=== PATIENT | female | born 1945 | race Caucasian/White ===

== ENCOUNTER 2016-09-01 17:11 | Inpatient (IN) | payer MEDICARE ==
[2016-09-01] MEDS ORDERED: HYDROmorphone 1 MG/ML 1 ML SYRINGE IVP STA (17:48)
[2016-09-01] MEDS ORDERED: ONDANSETRON 4 MG/2 ML VIAL IVP STA (17:48)
[2016-09-01] MEDS ORDERED: PANTOPRAZOLE 40 MG/10 ML VIAL IVP STA (17:48)
[2016-09-01] MEDS ORDERED: RX INFO: IV CONTRAST WAS GIVEN 1 EACH MISC MISCELLANE PRN (17:48)
[2016-09-01] MEDS ORDERED: SODIUM CHLORIDE 0.9% 1,000 ML IV STA ×2 (17:48)
[2016-09-01] MEDS ORDERED: LEVOFLOXACIN 750MG-D5W PMX 750 MG in DEXTROSE/WATER 1 150ML.BAG IVPB STA (17:50)
--- NOTE | 2016-09-01 17:54 | ED ---
Abdominal Pain HPI - General Chief Complaint: Abdominal Pain Stated Complaint: POSS KIDNEY INFECTION, VOMITING Time Seen by Provider: 09/01/16 17:38 Source: patient Mode of arrival: wheelchair Limitations: no limitations - History of Present Illness Initial Comments: This 70-year-old white female presents with with the complaint of nausea vomiting and abdominal pain. She relates that the nausea and vomiting has been present intermittently for the last 2 weeks. It has been more severe over the last 2 days and she's been unable to keep down any food, fluid, or pills. She is felt significant chills but has not had any definitive fever. She was seen at [facility] urgent [facility] yesterday and diagnosed with urinary tract infection and pyelonephritis. She was put on an unknown antibiotic for which she attempted 2 doses but apparently vomited them up. She has had some frequency and urgency but no hematuria. She has had occasional flank pain. She denies any other complaints or modifying factors. Symptoms are fairly severe. She relates that she has lost 8 pounds in the past 2 weeks. - Related Data Home Medications Medication Instructions Recorded Confirmed Clopidogrel [Plavix] 75 mg PO DAILY 10/01/13 09/01/16 Insulin Glargine [Lantus] 40 unit SQ HS 10/01/13 09/01/16 Nitroglycerin Sl Tabs [Nitrostat] 0.4 mg SL DIRECTED PRN 10/01/13 09/01/16 Atorvastatin [Lipitor] 40 mg PO HS 09/01/16 09/01/16 Calcium Carbonate [Calcium] 600 mg PO DAILY 09/01/16 09/01/16 Cholecalciferol (Vitamin D3) 2,000 unit PO DAILY 09/01/16 09/01/16 [Vitamin D3] Ciprofloxacin HCl [Cipro] 500 mg PO Q12HR 09/01/16 09/01/16 Edoxaban Tosylate [Savaysa] 60 mg PO DAILY 09/01/16 09/01/16 Eluxadoline [Viberzi] 75 mg PO BID 09/01/16 09/01/16 Metoprolol Tartrate [Lopressor] 25 mg PO BID 09/01/16 09/01/16 Omeprazole [PriLOSEC] 40 mg PO DAILY 09/01/16 09/01/16 Ondansetron Odt [Zofran Odt] 4 mg PO Q8HR PRN 09/01/16 09/01/16 Propafenone [Rythmol] 150 mg PO TID 09/01/16 09/01/16 rOPINIRole HCL [Requip] 1 mg PO TID 09/01/16 09/01/16 Allergies Allergy/AdvReac Type Severity Reaction Status Date / Time ceftriaxone sodium Allergy HIVES Verified 09/01/16 19:17 [From Rocephin] Review of Systems ROS Statement: Those systems with pertinent positive or pertinent negative responses have been documented in the HPI. ROS Other: All systems not noted in ROS Statement are negative. Past Medical History Past Medical History: Cancer, Diabetes Mellitus, Hypertension, Skin Disorder Additional Past Medical History / Comment(s): HEART MURMUR, IBS, RECENT UTI, PSORIASIS, HX SHINGLES, NEUROPATHY, CERVICAL AND BREAST CANCER-NO CHEMO OR RAD. , PT STATES THAT SHE FELL ON 09/28/13 AND HAS NUMEROUS BRUISES History of Any Multi-Drug Resistant Organisms: None Reported Past Surgical History: Adenoidectomy, Breast Surgery, Cholecystectomy, Heart Catheterization With Stent, Hysterectomy, Orthopedic Surgery, Tonsillectomy Additional Past Surgical History / Comment(s): BILAT BREAST BIOPSY, LT PARTIAL MASTECTOMY-1976, LT KNEE SCOPE, REPAIR LT ROTATOR CUFF, LT CTR, BILAT CATARACT REMOVAL, COLONOSCOPY, EGD Past Anesthesia/Blood Transfusion Reactions: Previous Problems w/ Anesthesia, Motion Sickness, Postoperative Nausea & Vomiting (PONV) Date of Last Stent Placement:: 2011 Past Psychological History: Anxiety Smoking Status: Former smoker - Past Family History Father Family Medical History: Cancer Mother Family Medical History: Cancer Brother(s) Family Medical History: Cancer Sister(s) Family Medical History: Cancer General Exam - General Exam Comments Initial Comments: GENERAL: The patient is well nourished and well hydrated. VITAL SIGNS: Heart rate, blood pressure, respiratory rate reviewed as recorded in nurse's notes. EYES: Pupils are round and reactive. Extraocular movements are intact. No conjunctival / lid redness or swelling. ENT: No external evidence of injury, swelling, or ecchymosis. Airway is patent. Throat is clear. NECK: Nontender. No swelling or evidence of injury. No subcutaneous emphysema. Trachea is midline. No thyroid mass. HEART: Regular rate and rhythm. Good peripheral pulses. LUNGS/CHEST: Breath sounds clear and equal bilaterally. No rales, rhonchi, or wheezes. No ecchymosis, subcutaneous emphysema, or tenderness. ABDOMEN: There is mild diffuse tenderness worse in the left lower quadrant. There is mild flank tenderness bilaterally. No palpable masses or organomegaly. No peritoneal signs. No abdominal wall swelling or ecchymosis. EXTREMITIES: No extremity tenderness. Normal muscle tone and function. No thoracolumbar tenderness. NEUROLOGIC: Sensation is grossly intact. Cranial nerve exam reveals face is symmetrical, tongue is midline, speech is clear. SKIN: No abrasions or ecchymosis is noted. No induration or masses noted. PSYCHIATRIC: Alert and oriented. Appropriate behavior and judgment. Limitations: no limitations Course Vital Signs 09/01/16 09/01/16 17:25 19:13 Temperature 98.3 F 98.3 F Pulse Rate 77 72 Respiratory 18 18 Rate Blood Pressure 170/70 170/73 O2 Sat by Pulse 99 95 Oximetry Medical Decision Making - Medical Decision Making The patient was seen and examined. She is thoroughly hydrated. She received Zofran and Dilaudid intravenously. She is feeling improved on recheck. The laboratory did show elevation of the white blood cell count consistent with infection. The urine does show evidence of urinary infection. The computed tomography scan of the abdomen and pelvis shows an abnormal area primarily in the left lower quadrant potentially consistent with either an abscess versus mass. It is difficult for the radiologist to determine exactly where this is coming from. Overall, it is felt as though either of these possibilities are plausible. She will be treated for infection with antibiotics. Case is discussed with internal medicine and they would like OB and surgery to consult. She is in no distress on recheck. She is medically hospital for further treatment. - Lab Data Result diagrams: 09/01/16 18:03 09/01/16 18:03 Lab Results 09/01/16 09/01/16 09/01/16 Range/Units 18:03 18:03 18:03 WBC 13.5 H (3.8-10.6) k/uL RBC 4.01 (3.80-5.40) m/uL Hgb 12.0 (11.4-16.0) gm/dL Hct 36.6 (34.0-46.0) % MCV 91.2 (80.0-100.0) fL MCH 29.8 (25.0-35.0) pg MCHC 32.7 (31.0-37.0) g/dL RDW 12.7 (11.5-15.5) % Plt Count 336 (150-450) k/uL Neutrophils % 83 % Lymphocytes % 8 % Monocytes % 6 % Eosinophils % 1 % Basophils % 0 % Neutrophils # 11.1 H (1.3-7.7) k/uL Lymphocytes # 1.0 (1.0-4.8) k/uL Monocytes # 0.9 (0-1.0) k/uL Eosinophils # 0.1 (0-0.7) k/uL Basophils # 0.0 (0-0.2) k/uL PT (9.0-12.0) sec INR (<1.1) APTT (22.0-30.0) sec Sodium 135 L (137-145) mmol/L Potassium 3.9 (3.5-5.1) mmol/L Chloride 92 L (98-107) mmol/L Carbon Dioxide 22 (22-30) mmol/L Anion Gap 21 mmol/L BUN 24 H (7-17) mg/dL Creatinine 1.00 (0.52-1.04) mg/dL Est GFR (MDRD) Af Amer >60 (>60 ml/min/1.73 sqM) Est GFR (MDRD) Non-Af 55 (>60 ml/min/1.73 sqM) Glucose 343 H (74-99) mg/dL Plasma Lactic Acid Mitch 1.9 (0.7-2.0) mmol/L Calcium 9.4 (8.4-10.2) mg/dL Total Bilirubin 0.6 (0.2-1.3) mg/dL AST 19 (14-36) U/L ALT 27 (9-52) U/L Alkaline Phosphatase 110 (38-126) U/L Total Protein 6.8 (6.3-8.2) g/dL Albumin 3.1 L (3.5-5.0) g/dL Amylase 59 (30-110) U/L Lipase 279 (23-300) U/L Urine Color Urine Appearance (Clear) Urine pH (5.0-8.0) Ur Specific Brohard (1.001-1.035) Urine Protein (Negative) Urine Glucose (UA) (Negative) Urine Ketones (Negative) Urine Blood (Negative) Urine Nitrite (Negative) Urine Bilirubin (Negative) Urine Urobilinogen (<2.0) mg/dL Ur Leukocyte Esterase (Negative) Urine RBC (0-5) /hpf Urine WBC (0-5) /hpf Ur Squamous Epith Cells (0-4) /hpf Urine Bacteria (None) /hpf 09/01/16 09/01/16 Range/Units 18:03 19:27 WBC (3.8-10.6) k/uL RBC (3.80-5.40) m/uL Hgb (11.4-16.0) gm/dL Hct (34.0-46.0) % MCV (80.0-100.0) fL MCH (25.0-35.0) pg MCHC (31.0-37.0) g/dL RDW (11.5-15.5) % Plt Count (150-450) k/uL Neutrophils % % Lymphocytes % % Monocytes % % Eosinophils % % Basophils % % Neutrophils # (1.3-7.7) k/uL Lymphocytes # (1.0-4.8) k/uL Monocytes # (0-1.0) k/uL Eosinophils # (0-0.7) k/uL Basophils # (0-0.2) k/uL PT 11.3 (9.0-12.0) sec INR 1.1 (<1.1) APTT 22.2 (22.0-30.0) sec Sodium (137-145) mmol/L Potassium (3.5-5.1) mmol/L Chloride (98-107) mmol/L Carbon Dioxide (22-30) mmol/L Anion Gap mmol/L BUN (7-17) mg/dL Creatinine (0.52-1.04) mg/dL Est GFR (MDRD) Af Amer (>60 ml/min/1.73 sqM) Est GFR (MDRD) Non-Af (>60 ml/min/1.73 sqM) Glucose (74-99) mg/dL Plasma Lactic Acid Mitch (0.7-2.0) mmol/L Calcium (8.4-10.2) mg/dL Total Bilirubin (0.2-1.3) mg/dL AST (14-36) U/L ALT (9-52) U/L Alkaline Phosphatase (38-126) U/L Total Protein (6.3-8.2) g/dL Albumin (3.5-5.0) g/dL Amylase (30-110) U/L Lipase (23-300) U/L Urine Color Yellow Urine Appearance Cloudy H (Clear) Urine pH 5.5 (5.0-8.0) Ur Specific Brohard 1.035 (1.001-1.035) Urine Protein 2+ H (Negative) Urine Glucose (UA) 4+ H (Negative) Urine Ketones 3+ H (Negative) Urine Blood Small H (Negative) Urine Nitrite Positive H (Negative) Urine Bilirubin Negative (Negative) Urine Urobilinogen <2.0 (<2.0) mg/dL Ur Leukocyte Esterase Small H (Negative) Urine RBC 34 H (0-5) /hpf Urine WBC 24 H (0-5) /hpf Ur Squamous Epith Cells 1 (0-4) /hpf Urine Bacteria Many H (None) /hpf Disposition Clinical Impression: Abdominal pain, Nausea and vomiting, Failure of outpatient treatment, Urinary tract infection, Leukocytosis, Dehydration, Abdominal abscess Disposition: ADMITTED IP TO THIS HOSP Condition: Fair Referrals: Perico White MD [Primary Care Provider] - 1-2 days Time of Disposition: 20:47
[2016-09-01 18:15] LABS: Basophils % (A) 0 %; CH 29.3; CHCM 32.2; Eosinophils # (A) 0.1 k/uL (0-0.7); Eosinophils % (A) 1 %; HCT 36.6 % (34.0-46.0); HDW 2.55; Luc # (Auto) 0.36; Luc % (Auto) 3; Lymphocytes % (A) 8 %; MCH 29.8 pg (25.0-35.0); MCHC 32.7 g/dL (31.0-37.0); MCV 91.2 fL (80.0-100.0); Mean Platelet Volume 8.6; Monocytes # (A) 0.9 k/uL (0-1.0); Monocytes % (A) 6 %; Neutrophils # (A) 11.1 k/uL (1.3-7.7); Neutrophils % (A) 83 %; RBC 4.01 m/uL (3.80-5.40); RDW 12.7 % (11.5-15.5); WBC 13.5 k/uL (3.8-10.6); WBC (Perox) 13.74
[2016-09-01 18:26] LABS: INR 1.1 (<1.1); Partial Thromboplastin Time 22.2 sec (22.0-30.0); Prothrombin Time 11.3 sec (9.0-12.0)
[2016-09-01 18:29] LABS: ALT 27 U/L (9-52); AST 19 U/L (14-36); Alkaline Phosphatase 110 U/L (38-126); Amylase 59 U/L (30-110); Anion Gap 21 mmol/L; Blood Urea Nitrogen 24 mg/dL (7-17); Calcium 9.4 mg/dL (8.4-10.2); Carbon Dioxide 22 mmol/L (22-30); Chloride 92 mmol/L (98-107); Glucose 343 mg/dL (74-99); Non-African American GFR(MDRD) 55 (>60 ml/min/1.73 sqM); Potassium 3.9 mmol/L (3.5-5.1); Sodium 135 mmol/L (137-145); Total Bilirubin 0.6 mg/dL (0.2-1.3); Total Protein 6.8 g/dL (6.3-8.2)
[2016-09-01 19:40] LABS: Appearance,Urine Cloudy (Clear); Bacteria,Urine Many /hpf; Bilirubin,Urine Negative (Negative); Glucose,Urine (UA) 4+ (Negative); Leukocyte Esterase,Urine Small (Negative); Nitrite,Urine Positive (Negative); PH, Urine 5.5 (5.0-8.0); Particle Count 9580; Protein,Urine 2+ (Negative); RBC,Urine 34 /hpf (0-5); Specific Gravity,Urine 1.035 (1.001-1.035); Squamous Epithelial Cell,Urine 1 /hpf (0-4); UA Billing (MACRO vs. MICRO) MICRO; Urobilinogen,Urine <2.0 mg/dL (<2.0); WBC,Urine 24 /hpf (0-5)
--- NOTE | 2016-09-01 19:43 | CT ---
EXAMINATION TYPE: CT abdomen pelvis w con DATE OF EXAM: 09/01/2016 COMPARISON: Prior CT abdomen pelvis 09/09/2013 HISTORY: Nausea, vomiting and lower abdominal pain x 2-[address] DLP: 1523.00 mGycm Automated exposure control for dose reduction was used. TECHNIQUE: Helical acquisition of images from the lung bases through the pelvis have been completed. CONTRAST: Performed without Oral Contrast and with IV Contrast, patient injected with 80 mL of Visipaque 320. FINDINGS: Leads are present within the heart LUNG BASES: No significant abnormality is appreciated. AORTA: No significant abnormality is appreciated. LIVER/GB: The common bile duct is markedly dilated 2.2 cm, there is some intrahepatic ductal dilatati on, gallbladder is absent. Liver normal as seen. Findings are stable PANCREAS: , Common bile duct shows a more normal caliber. SPLEEN: No significant abnormality is seen. ADRENALS: Left adrenal low-density nodule measures approximately 16 mm. Right adrenal gland is normal . KIDNEYS: No significant abnormality is seen. REPRODUCTIVE ORGANS: Uterus and adnexal structures are not seen. There is a fluid collection seen in the left iliac fossa which is irregular and there are associated surgical clips, some mixed density i s present, iliac vasculature runs through this level, overall the area measures approximately 8.5 cm in AP dimension by 5.4 cm in transverse dimension by 12 cm in craniocaudal dimension. The rectus musc les shows some thickening anteriorly to this level of surgery and abnormal density in the left hemipe lvis BOWEL: No significant abnormality is seen. FREE AIR: No Free Air visible. ASCITES: No definite ascites PELVIC ADENOPATHY: Findings as described in the pelvis RETROPERITONEAL ADENOPATHY: No Retroperitoneal Adenopathy visible. URINARY BLADDER: No significant abnormality is seen. OSSEOUS STRUCTURES: No significant abnormality is seen. IMPRESSION: INTERVAL DEVELOPMENT OF ABNORMAL DENSITY IN THE LEFT HEMIPELVIS, CORRELATE WITH APPROPRIATE SURGICAL HISTORY, PRIOR INTERVENTION. DIFFICULT TO EXCLUDE OVARIAN MASS, CORRELATE FOR POSSIBLE INFECTION. A D EFINED ABSCESS IS NOT IDENTIFIED WITH CERTAINTY HOWEVER. BILIARY DILATION IS A STABLE FINDING, LEFT A DRENAL PROBABLE ADENOMA NOT SIGNIFICANTLY CHANGED.
[2016-09-01 19:51] LABS: Ketones,Urine 3+ (Negative)
[2016-09-01] MEDS ORDERED: metroNIDAZOLE-NS PMX 500 MG in SALINE 1 100ML.BAG IVPB STA (20:48)
[2016-09-01] MEDS ORDERED: ACETAMINOPHEN TAB 325 MG TAB PO PRN (20:48)
[2016-09-01] MEDS ORDERED: NALOXONE 0.4 MG/ML 1 ML VIAL IV PRN (20:48)
[2016-09-01] MEDS: HYDROmorphone 1 MG/ML 1 ML SYRINGE IV PRN (22:00)
[2016-09-01 22:05] LABS: Glucose,Whole Blood 280 mg/dL (75-99)
[2016-09-01] MEDS: ATORVASTATIN 40 MG TAB PO SCH (22:09)
[2016-09-01] MEDS: PROPAFENONE 150 MG TAB PO SCH (22:09)
[2016-09-01] MEDS: INSULIN LISPRO (humaLOG) 300 UNIT/3 ML VIAL SQ SCH (22:09)
[2016-09-01] MEDS: METOPROLOL TARTRATE 25 MG TAB PO SCH (22:09)
[2016-09-01] MEDS: ONDANSETRON 4 MG/2 ML VIAL IVP PRN (23:40)
[2016-09-02 03:01] LABS: Glucose,Whole Blood 255 mg/dL (75-99)
[2016-09-02] MEDS: INSULIN LISPRO (humaLOG) 300 UNIT/3 ML VIAL SQ SCH ×5 (03:06→21:22)
[2016-09-02] MEDS: HYDROmorphone 1 MG/ML 1 ML SYRINGE IV PRN ×5 (07:03→16:58)
[2016-09-02] MEDS: METOPROLOL TARTRATE 25 MG TAB PO SCH ×2 (07:59→21:21)
[2016-09-02] MEDS ORDERED: PANTOPRAZOLE 40 MG/10 ML VIAL IV SCH (09:00)
[2016-09-02 09:18] LABS: Glucose,Whole Blood 263 mg/dL (75-99)
--- NOTE | 2016-09-02 09:36 | US ---
EXAMINATION TYPE: US pelvis complete transvag DATE OF EXAM: 09/02/2016 COMPARISON: CT 09/01/2016, 09/09/2013 CLINICAL HISTORY: Abdominal pain, abnormal CT, left adnexal mass. Pt in ER for vomiting, CT showed le ft adnexal mass TECHNIQUE: Transvaginal (TV) and Transabdominal (TA) endovaginal scanning performed for better evalu ation of the adnexa, left ovary Date of LMP: Hysterectomy when patient was 27 EXAM MEASUREMENTS: Uterus: Surgically absent Endometrial Stripe: Surgically absent cm Right Ovary: not visualized Left Ovary: not visualized with certainty Grayscale, color Doppler, spectral Doppler imaging performed of the left adnexa 1. Uterus: Surgically absent 2. Endometrium: Surgically absent 3. Right Ovary: not identified 4. Left adnexal lesion, somewhat irregular in shape, there is some vascularity to mass only in perip chandni, measures 5.6 x 2.9 x 3.5cm. Unable to visualize with TV. 5. Posterior cul-de-sac: wnl IMPRESSION: Hypoechoic left adnexal abnormality likely corresponds to a portion of the CT finding, co nsider [employer] and surgical consult
[2016-09-02 10:47] LABS: Basophils % (A) 0 %; CH 29.1; CHCM 30.5; Eosinophils % (A) 0 %; HCT 33.5 % (34.0-46.0); HDW 2.38; Hypochromasia Slight; Luc # (Auto) 0.29; Luc % (Auto) 3; Lymphocytes # (A) 0.8 k/uL (1.0-4.8); Lymphocytes % (A) 7 %; MCH 28.6 pg (25.0-35.0); MCHC 29.9 g/dL (31.0-37.0); MCV 95.7 fL (80.0-100.0); Mean Platelet Volume 8.9; Monocytes # (A) 0.6 k/uL (0-1.0); Monocytes % (A) 6 %; Neutrophils # (A) 9.2 k/uL (1.3-7.7); Neutrophils % (A) 84 %; RDW 13.5 % (11.5-15.5); WBC 10.9 k/uL (3.8-10.6); WBC (Perox) 11.06
[2016-09-02 11:04] LABS: Anion Gap 15 mmol/L; Blood Urea Nitrogen 20 mg/dL (7-17); Calcium 8.7 mg/dL (8.4-10.2); Carbon Dioxide 24 mmol/L (22-30); Chloride 98 mmol/L (98-107); Glucose 267 mg/dL (74-99); Non-African American GFR(MDRD) 55 (>60 ml/min/1.73 sqM); Potassium 3.4 mmol/L (3.5-5.1); Sodium 137 mmol/L (137-145)
[2016-09-02 11:13] VITALS: BMI 31.3
[2016-09-02] MEDS: CLOPIDOGREL 75 MG TAB PO SCH (12:17)
[2016-09-02] MEDS: EDOXABAN TOSYLATE 60 MG TABLET PO SCH (12:17)
[2016-09-02] MEDS: CALCIUM CARBONATE 500 MG CHEWABLE PO SCH ×2 (12:18→12:21)
[2016-09-02] MEDS: PROPAFENONE 150 MG TAB PO SCH ×3 (12:18→21:22)
[2016-09-02] MEDS: CHOLECALCIFEROL 1,000 UNIT TAB PO SCH (12:18)
--- NOTE | 2016-09-02 14:40 | P.GSCN ---
History of Present Illness Consult date: 09/02/16 Reason for Consult: Abdominal pain History of present illness: 70-year-old female being seen for a surgical eval at the request of the attending in a patient who presented with abdominal pain and an abnormal CAT scan showing a left adnexal mass. Patient gives a history of being in [place] last winter treated for an umbilical hernia which the patient stated she had undergone umbilical hernia repair the day after the procedure developed chest pain had a heart attack with coronary stents placed. When questioning patient patient stating that she has had chronic pain in her abdomen for "several years". Patient's currently being seen with Dr. Woodward at the bedside. Patient reports having lower abdominal pain.. Patient stated that she did present to the emergency room on September 01 with a chief complaint of nausea vomiting and abdominal pain. Patient states the nausea and vomiting had been intermittent and ongoing for the last several weeks. Patient stated she noted having increased pain over the last several days could not keep any fluids down . Patient stated she felt feverish chilled but did not take her temperature. Patient stated that she had been seen at [facility] urgent care on August 31. Patient stated she was told at the urgent care she had a urinary tract infection with pyelonephritis. According to the patient she was given a prescription for an antibiotic is not certain of the name did take 2 doses but could not keep them down "they seemed to make things worse I vomited them back up. Patient states she continues to have a frequency and urgency sensation. There's been no blood noted in the urine. Patient states her symptoms continue to persist over the last several weeks patient stated that she's lost about 8 pounds the Patient points to the lower abdominal wall as to the reference point is to wear the abdominal discomfort is the urinalysis on admission suggesting a UTI In the emergency room the patient did undergo a CAT scan of the abdomen and pelvis with contrast showed no free air no definitive ascites no significant abnormality noted in the bowel difficult interval development of abnormal density in the left hemipelvis correlate with appropriate surgical history prior intervention difficult to exclude an ovarian mass correlate for possible infection left adrenal probable adenoma not significantly changed Review of Systems Essentially unremarkable except as mentioned in the present illness Past Medical History Past Medical History: Cancer, Diabetes Mellitus, Hypertension, Myocardial Infarction ([place]), Skin Disorder Additional Past Medical History / Comment(s): HEART MURMUR, IBS, RECENT UTI, PSORIASIS, HX SHINGLES, NEUROPATHY, CERVICAL AND BREAST CANCER-NO CHEMO OR RAD. , PT STATES THAT SHE FELL ON 09/28/13 AND HAS NUMEROUS BRUISES Last Myocardial Infarction Date:: 2016 History of Any Multi-Drug Resistant Organisms: None Reported Past Surgical History: Adenoidectomy, Breast Surgery, Cholecystectomy, Heart Catheterization With Stent, Hysterectomy, Orthopedic Surgery, Pacemaker, Tonsillectomy Additional Past Surgical History / Comment(s): BILAT BREAST BIOPSY, LT PARTIAL MASTECTOMY-1976, LT KNEE SCOPE, REPAIR LT ROTATOR CUFF, LT CTR, BILAT CATARACT REMOVAL, COLONOSCOPY, EGD Past Anesthesia/Blood Transfusion Reactions: Previous Problems w/ Anesthesia, Motion Sickness, Postoperative Nausea & Vomiting (PONV) Date of Last Stent Placement:: 2011 Type of Cardiac Device: Permanent Pacemaker Device Placement Date:: 05/19/16 Past Psychological History: Anxiety Smoking Status: Former smoker - Past Family History Father Family Medical History: Cancer Mother Family Medical History: Cancer Brother(s) Family Medical History: Cancer Sister(s) Family Medical History: Cancer Medications and Allergies Home Medications Medication Instructions Recorded Confirmed Type Clopidogrel [Plavix] 75 mg PO DAILY 10/01/13 09/01/16 History Insulin Glargine [Lantus] 40 unit SQ HS 10/01/13 09/01/16 History Nitroglycerin Sl Tabs [Nitrostat] 0.4 mg SL DIRECTED PRN 10/01/13 09/01/16 History Atorvastatin [Lipitor] 40 mg PO HS 09/01/16 09/01/16 History Calcium Carbonate [Calcium] 600 mg PO DAILY 09/01/16 09/01/16 History Cholecalciferol (Vitamin D3) 2,000 unit PO DAILY 09/01/16 09/01/16 History [Vitamin D3] Ciprofloxacin HCl [Cipro] 500 mg PO Q12HR 09/01/16 09/01/16 History Edoxaban Tosylate [Savaysa] 60 mg PO DAILY 09/01/16 09/01/16 History Eluxadoline [Viberzi] 75 mg PO BID 09/01/16 09/01/16 History Metoprolol Tartrate [Lopressor] 25 mg PO BID 09/01/16 09/01/16 History Omeprazole [PriLOSEC] 40 mg PO DAILY 09/01/16 09/01/16 History Ondansetron Odt [Zofran Odt] 4 mg PO Q8HR PRN 09/01/16 09/01/16 History Propafenone [Rythmol] 150 mg PO TID 09/01/16 09/01/16 History rOPINIRole HCL [Requip] 1 mg PO TID 09/01/16 09/01/16 History Allergies Allergy/AdvReac Type Severity Reaction Status Date / Time ceftriaxone sodium Allergy HIVES Verified 09/01/16 19:17 [From Rocephin] Surgical - Exam Vital Signs Temp Pulse Resp BP Pulse Ox 98.3 F 77 18 170/70 99 09/01/16 17:25 09/01/16 17:25 09/01/16 17:25 09/01/16 17:25 09/01/16 17:25 GENERAL APPEARANCE: 70-year-old female patient is alert, oriented, in no acute distress. Resting in bed cirrhosis at bedside VITAL SIGNS: Reviewed HEENT: Head is normocephalic and atraumatic. Pupils are equal and reactive. The nares are patent. Oropharynx is clear without lesions. NECK: Supple without lymphadenopathy. Traches midline. HEART: S1, S2. Regular rate and rhythm. No murmur noted denying chest pain when questioning LUNGS: No crackles or wheezes are heard. Adequate air entry bilaterally no conversational dyspnea noted no cough ABDOMEN: Soft, slight tenderness lower abdominal wall nondistended with good bowel sounds. No peritoneal signs. No palpable organomegaly or masses. No surgical scars noted no guarding no facial grimacing with palpitation to the abdominal wall currently is none denying any burning on urination when questioning denies any frequent stooling EXTREMITIES: Normal skin color and turgor. No cyanosis, rash, ulceration, clubbing or edema. Radial pedal pulses are 2/4 bilaterally. NEUROLOGICAL: No focal deficits. Strength and sensation are grossly intact. Results - Labs 09/02/16 10:10 09/02/16 10:10 Abnormal Lab Results - Last 24 Hours (Table) 09/01/16 09/01/16 09/01/16 Range/Units 18:03 18:03 18:03 WBC 13.5 H (3.8-10.6) k/uL RBC (3.80-5.40) m/uL Hgb (11.4-16.0) gm/dL Hct (34.0-46.0) % MCHC (31.0-37.0) g/dL Neutrophils # 11.1 H (1.3-7.7) k/uL Lymphocytes # (1.0-4.8) k/uL Sodium 135 L (137-145) mmol/L Potassium (3.5-5.1) mmol/L Chloride 92 L (98-107) mmol/L BUN 24 H (7-17) mg/dL Glucose 343 H (74-99) mg/dL POC Glucose (mg/dL) (75-99) mg/dL Hemoglobin A1c 11.0 H (4.2-6.1) % Albumin 3.1 L (3.5-5.0) g/dL Urine Appearance (Clear) Urine Protein (Negative) Urine Glucose (UA) (Negative) Urine Ketones (Negative) Urine Blood (Negative) Urine Nitrite (Negative) Ur Leukocyte Esterase (Negative) Urine RBC (0-5) /hpf Urine WBC (0-5) /hpf Urine Bacteria (None) /hpf 09/01/16 09/01/16 09/02/16 Range/Units 19:27 22:03 02:59 WBC (3.8-10.6) k/uL RBC (3.80-5.40) m/uL Hgb (11.4-16.0) gm/dL Hct (34.0-46.0) % MCHC (31.0-37.0) g/dL Neutrophils # (1.3-7.7) k/uL Lymphocytes # (1.0-4.8) k/uL Sodium (137-145) mmol/L Potassium (3.5-5.1) mmol/L Chloride (98-107) mmol/L BUN (7-17) mg/dL Glucose (74-99) mg/dL POC Glucose (mg/dL) 280 H 255 H (75-99) mg/dL Hemoglobin A1c (4.2-6.1) % Albumin (3.5-5.0) g/dL Urine Appearance Cloudy H (Clear) Urine Protein 2+ H (Negative) Urine Glucose (UA) 4+ H (Negative) Urine Ketones 3+ H (Negative) Urine Blood Small H (Negative) Urine Nitrite Positive H (Negative) Ur Leukocyte Esterase Small H (Negative) Urine RBC 34 H (0-5) /hpf Urine WBC 24 H (0-5) /hpf Urine Bacteria Many H (None) /hpf 09/02/16 09/02/16 09/02/16 Range/Units 09:17 10:10 10:10 WBC 10.9 H (3.8-10.6) k/uL RBC 3.50 L (3.80-5.40) m/uL Hgb 10.0 L D (11.4-16.0) gm/dL Hct 33.5 L (34.0-46.0) % MCHC 29.9 L (31.0-37.0) g/dL Neutrophils # 9.2 H (1.3-7.7) k/uL Lymphocytes # 0.8 L (1.0-4.8) k/uL Sodium (137-145) mmol/L Potassium 3.4 L (3.5-5.1) mmol/L Chloride (98-107) mmol/L BUN 20 H (7-17) mg/dL Glucose 267 H (74-99) mg/dL POC Glucose (mg/dL) 263 H (75-99) mg/dL Hemoglobin A1c (4.2-6.1) % Albumin (3.5-5.0) g/dL Urine Appearance (Clear) Urine Protein (Negative) Urine Glucose (UA) (Negative) Urine Ketones (Negative) Urine Blood (Negative) Urine Nitrite (Negative) Ur Leukocyte Esterase (Negative) Urine RBC (0-5) /hpf Urine WBC (0-5) /hpf Urine Bacteria (None) /hpf Microbiology - Last 24 Hours (Table) 09/01/16 19:27 Urine Culture - Preliminary Urine,Voided Diabetes panel 09/01/16 09/01/16 09/02/16 Range/Units 18:03 18:03 10:10 Sodium 135 L 137 (137-145) mmol/L Potassium 3.9 3.4 L (3.5-5.1) mmol/L Chloride 92 L 98 (98-107) mmol/L Carbon Dioxide 22 24 (22-30) mmol/L BUN 24 H 20 H (7-17) mg/dL Creatinine 1.00 1.00 (0.52-1.04) mg/dL Glucose 343 H 267 H (74-99) mg/dL Hemoglobin A1c 11.0 H (4.2-6.1) % Calcium 9.4 8.7 (8.4-10.2) mg/dL AST 19 (14-36) U/L ALT 27 (9-52) U/L Alkaline Phosphatase 110 (38-126) U/L Total Protein 6.8 (6.3-8.2) g/dL Albumin 3.1 L (3.5-5.0) g/dL Calcium panel 09/01/16 09/02/16 Range/Units 18:03 10:10 Calcium 9.4 8.7 (8.4-10.2) mg/dL Albumin 3.1 L (3.5-5.0) g/dL Pituitary panel 09/01/16 09/02/16 Range/Units 18:03 10:10 Sodium 135 L 137 (137-145) mmol/L Potassium 3.9 3.4 L (3.5-5.1) mmol/L Chloride 92 L 98 (98-107) mmol/L Carbon Dioxide 22 24 (22-30) mmol/L BUN 24 H 20 H (7-17) mg/dL Creatinine 1.00 1.00 (0.52-1.04) mg/dL Glucose 343 H 267 H (74-99) mg/dL Calcium 9.4 8.7 (8.4-10.2) mg/dL Adrenal panel 09/01/16 09/02/16 Range/Units 18:03 10:10 Sodium 135 L 137 (137-145) mmol/L Potassium 3.9 3.4 L (3.5-5.1) mmol/L Chloride 92 L 98 (98-107) mmol/L Carbon Dioxide 22 24 (22-30) mmol/L BUN 24 H 20 H (7-17) mg/dL Creatinine 1.00 1.00 (0.52-1.04) mg/dL Glucose 343 H 267 H (74-99) mg/dL Calcium 9.4 8.7 (8.4-10.2) mg/dL Total Bilirubin 0.6 (0.2-1.3) mg/dL AST 19 (14-36) U/L ALT 27 (9-52) U/L Alkaline Phosphatase 110 (38-126) U/L Total Protein 6.8 (6.3-8.2) g/dL Albumin 3.1 L (3.5-5.0) g/dL Assessment and Plan Plan: Impression Present on admission abdominal pain unclear etiology History of known coronary artery disease with prior coronary stenting recent 2016 in [place] History of an AL within the last 12 months History of recent umbilical hernia repair A recent treatment within the week of a urinary tract infection on antibiotic failed outpatient treatment Type 2 diabetes insulin requiring Hypertension History of irritable bowel disease CAT scan abdomen and pelvis ovarian mass not ruled out Plan No evidence of acute surgical abdomen at this time 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 Scarlet Kimble nurse practitioner acting as a scribe for Dr. Woodward
[2016-09-02] MEDS: ONDANSETRON 4 MG/2 ML VIAL IVP PRN ×2 (15:09→21:27)
[2016-09-02 15:42] LABS: Glucose,Whole Blood 301 mg/dL (75-99)
[2016-09-02 17:09] LABS: Glucose,Whole Blood 282 mg/dL (75-99)
--- NOTE | 2016-09-02 18:28 | P.OBCN ---
History of Present Illness Consult date: 09/02/16 Requesting physician: Barney Pacheco Reason for consult: pelvic pain, other (Left adnexal mass) Chief complaint: Abdominal pain, nausea and vomiting History of present illness: This is a 70-year-old female 1 para 1 who presents with approximately 2 week history of nausea and vomiting that worsened to the point of not eating able to hold anything down. She also has been complaining of bilateral lower quadrant abdominal pain over the last 2 weeks that has worsened from her baseline and is worse on the left side. She states she has had lower abdominal pain for many years now but it did worsen over the last couple weeks with her vomiting. She was seen at another facility and was told that she had a urinary tract infection and given antibiotics. She was unable to hold the antibiotic down and therefore presented to the emergency room here. She does have a history of a hysterectomy at age 27 for cervical cancer and she did have a recent Pap smear approximately 1 year ago through her family doctor that was normal. She did have a CAT scan performed in the emergency room that showed uterus and adnexal structures are not seen, but there is a fluid collection seen in the left iliac fossa which is irregular and associated surgical clips are noted with a mixed density present the iliac vasculature does run through this level and the overall measurements are 8.5 x 5.4 x 12 cm. The rectus muscle also showed some thickening anteriorly to this level. There was no definite ascites. No retroperitoneal adenopathy was visible. The overall impression of the radiologist was interval development of abnormal density in the left hemipelvis, correlate with appropriate surgical history, prior intervention. Difficult to exclude ovarian mass, correlate for possible infection. A defined abscess is not identified with certainty however. She did undergo a pelvic ultrasound on the same day that showed a left adnexal lesion somewhat irregular in shape with some vascularity to the mass only in the periphery and this measured 5.6 x 2.9 x 3.5 cm. It was unable to be visualized with transvaginal. The posterior cul-de-sac appeared within normal limits. CA 125 level is 23 Obstetrical history: . History of 1 vaginal delivery. Gynecologic history: No history of sexual transmitted diseases. Review of Systems Constitutional: Reports chills, Reports fever, Reports weight loss Gastrointestinal: Reports abdominal pain, Reports diarrhea (History of irritable bowel), Reports loss of appetite, Reports nausea, Reports vomiting Genitourinary: Reports pelvic pain, Reports urinary frequency Menstruation: Reports post hysterectomy Past Medical History Past Medical History: Cancer, Diabetes Mellitus, Hypertension, Myocardial Infarction ([place]), Skin Disorder Additional Past Medical History / Comment(s): HEART MURMUR, IBS, RECENT UTI, PSORIASIS, HX SHINGLES, NEUROPATHY, CERVICAL AND BREAST CANCER-NO CHEMO OR RAD. , PT STATES THAT SHE FELL ON 09/28/13 AND HAS NUMEROUS BRUISES Last Myocardial Infarction Date:: 2016 History of Any Multi-Drug Resistant Organisms: None Reported Past Surgical History: Adenoidectomy, Breast Surgery, Cholecystectomy, Heart Catheterization With Stent, Hysterectomy, Orthopedic Surgery, Pacemaker, Tonsillectomy Additional Past Surgical History / Comment(s): BILAT BREAST BIOPSY, LT PARTIAL MASTECTOMY-1976, LT KNEE SCOPE, REPAIR LT ROTATOR CUFF, LT CTR, BILAT CATARACT REMOVAL, COLONOSCOPY, EGD Past Anesthesia/Blood Transfusion Reactions: Previous Problems w/ Anesthesia, Motion Sickness, Postoperative Nausea & Vomiting (PONV) Date of Last Stent Placement:: 2011 Type of Cardiac Device: Permanent Pacemaker Device Placement Date:: 05/19/16 Past Psychological History: Anxiety Smoking Status: Former smoker Past Alcohol Use History: Occasional Past Drug Use History: None Reported - Past Family History Father Family Medical History: Cancer (Long) Mother Family Medical History: Cancer (Lungs) Brother(s) Family Medical History: Cancer (Lung and throat) Sister(s) Family Medical History: Cancer (Breast) Medications and Allergies Home Medications Medication Instructions Recorded Confirmed Type Clopidogrel [Plavix] 75 mg PO DAILY 10/01/13 09/01/16 History Insulin Glargine [Lantus] 40 unit SQ HS 10/01/13 09/01/16 History Nitroglycerin Sl Tabs [Nitrostat] 0.4 mg SL DIRECTED PRN 10/01/13 09/01/16 History Atorvastatin [Lipitor] 40 mg PO HS 09/01/16 09/01/16 History Calcium Carbonate [Calcium] 600 mg PO DAILY 09/01/16 09/01/16 History Cholecalciferol (Vitamin D3) 2,000 unit PO DAILY 09/01/16 09/01/16 History [Vitamin D3] Ciprofloxacin HCl [Cipro] 500 mg PO Q12HR 09/01/16 09/01/16 History Edoxaban Tosylate [Savaysa] 60 mg PO DAILY 09/01/16 09/01/16 History Eluxadoline [Viberzi] 75 mg PO BID 09/01/16 09/01/16 History Metoprolol Tartrate [Lopressor] 25 mg PO BID 09/01/16 09/01/16 History Omeprazole [PriLOSEC] 40 mg PO DAILY 09/01/16 09/01/16 History Ondansetron Odt [Zofran Odt] 4 mg PO Q8HR PRN 09/01/16 09/01/16 History Propafenone [Rythmol] 150 mg PO TID 09/01/16 09/01/16 History rOPINIRole HCL [Requip] 1 mg PO TID 09/01/16 09/01/16 History Allergies Allergy/AdvReac Type Severity Reaction Status Date / Time ceftriaxone sodium Allergy HIVES Verified 09/01/16 19:17 [From [facility]] Exam Osteopathic Statement: *. No significant issues noted on an osteopathic structural exam other than those noted in the History and Physical/Consult. - Vital Signs Vital signs: Vital Signs Temp Pulse Pulse Resp BP BP Pulse Ox 09/02/16 16:00 70 18 09/02/16 15:00 98.4 F 70 18 170/74 95 09/02/16 08:00 70 18 09/02/16 07:00 98.0 F 70 18 163/75 93 L 09/01/16 21:40 98.6 F 74 16 145/67 99 09/01/16 21:13 98.8 F 71 18 153/77 98 09/01/16 19:13 98.3 F 72 18 170/73 95 Intake and Output 09/02/16 09/02/16 09/02/16 06:59 14:59 22:59 Intake Total 800 940 Balance 800 940 Intake: IV 800 700 Sodium Chloride 0.9% 1, 800 700 000 ml @ 100 mls/hr IV . Q10H STA Rx#:[id number] Oral 240 Other: Voiding Method Toilet Toilet # Voids 1 3 # Emeses 1 Weight 80.286 kg Patient Weight 09/03/16 06:59 Weight 80.286 kg - OBG Physical Exam Abdomen: bowel sounds normal, guarding noted (Some guarding noted in the left greater than right lower quadrants) Abdomen detail: right lower quadrant: tenderness, left lower quadrant: tenderness Vagina: No vaginal tenderness noted during pelvic exam Vagina: no discharge Cervix: absent Uterus: absent Adnexa: left: mass (Definite fullness palpated in the left adnexa but difficult to adequately palpate due to patient guarding.), both: tenderness Results Result Diagrams: 09/02/16 10:10 09/02/16 10:10 Abnormal Lab Results - Last 24 Hours (Table) 09/01/16 09/01/16 09/01/16 Range/Units 18:03 18:03 18:03 WBC 13.5 H (3.8-10.6) k/uL RBC (3.80-5.40) m/uL Hgb (11.4-16.0) gm/dL Hct (34.0-46.0) % MCHC (31.0-37.0) g/dL Neutrophils # 11.1 H (1.3-7.7) k/uL Lymphocytes # (1.0-4.8) k/uL Sodium 135 L (137-145) mmol/L Potassium (3.5-5.1) mmol/L Chloride 92 L (98-107) mmol/L BUN 24 H (7-17) mg/dL Glucose 343 H (74-99) mg/dL POC Glucose (mg/dL) (75-99) mg/dL Hemoglobin A1c 11.0 H (4.2-6.1) % Albumin 3.1 L (3.5-5.0) g/dL Urine Appearance (Clear) Urine Protein (Negative) Urine Glucose (UA) (Negative) Urine Ketones (Negative) Urine Blood (Negative) Urine Nitrite (Negative) Ur Leukocyte Esterase (Negative) Urine RBC (0-5) /hpf Urine WBC (0-5) /hpf Urine Bacteria (None) /hpf 09/01/16 09/01/16 09/02/16 Range/Units 19:27 22:03 02:59 WBC (3.8-10.6) k/uL RBC (3.80-5.40) m/uL Hgb (11.4-16.0) gm/dL Hct (34.0-46.0) % MCHC (31.0-37.0) g/dL Neutrophils # (1.3-7.7) k/uL Lymphocytes # (1.0-4.8) k/uL Sodium (137-145) mmol/L Potassium (3.5-5.1) mmol/L Chloride (98-107) mmol/L BUN (7-17) mg/dL Glucose (74-99) mg/dL POC Glucose (mg/dL) 280 H 255 H (75-99) mg/dL Hemoglobin A1c (4.2-6.1) % Albumin (3.5-5.0) g/dL Urine Appearance Cloudy H (Clear) Urine Protein 2+ H (Negative) Urine Glucose (UA) 4+ H (Negative) Urine Ketones 3+ H (Negative) Urine Blood Small H (Negative) Urine Nitrite Positive H (Negative) Ur Leukocyte Esterase Small H (Negative) Urine RBC 34 H (0-5) /hpf Urine WBC 24 H (0-5) /hpf Urine Bacteria Many H (None) /hpf 09/02/16 09/02/16 09/02/16 Range/Units 09:17 10:10 10:10 WBC 10.9 H (3.8-10.6) k/uL RBC 3.50 L (3.80-5.40) m/uL Hgb 10.0 L D (11.4-16.0) gm/dL Hct 33.5 L (34.0-46.0) % MCHC 29.9 L (31.0-37.0) g/dL Neutrophils # 9.2 H (1.3-7.7) k/uL Lymphocytes # 0.8 L (1.0-4.8) k/uL Sodium (137-145) mmol/L Potassium 3.4 L (3.5-5.1) mmol/L Chloride (98-107) mmol/L BUN 20 H (7-17) mg/dL Glucose 267 H (74-99) mg/dL POC Glucose (mg/dL) 263 H (75-99) mg/dL Hemoglobin A1c (4.2-6.1) % Albumin (3.5-5.0) g/dL Urine Appearance (Clear) Urine Protein (Negative) Urine Glucose (UA) (Negative) Urine Ketones (Negative) Urine Blood (Negative) Urine Nitrite (Negative) Ur Leukocyte Esterase (Negative) Urine RBC (0-5) /hpf Urine WBC (0-5) /hpf Urine Bacteria (None) /hpf 09/02/16 09/02/16 Range/Units 15:32 17:02 WBC (3.8-10.6) k/uL RBC (3.80-5.40) m/uL Hgb (11.4-16.0) gm/dL Hct (34.0-46.0) % MCHC (31.0-37.0) g/dL Neutrophils # (1.3-7.7) k/uL Lymphocytes # (1.0-4.8) k/uL Sodium (137-145) mmol/L Potassium (3.5-5.1) mmol/L Chloride (98-107) mmol/L BUN (7-17) mg/dL Glucose (74-99) mg/dL POC Glucose (mg/dL) 301 H 282 H (75-99) mg/dL Hemoglobin A1c (4.2-6.1) % Albumin (3.5-5.0) g/dL Urine Appearance (Clear) Urine Protein (Negative) Urine Glucose (UA) (Negative) Urine Ketones (Negative) Urine Blood (Negative) Urine Nitrite (Negative) Ur Leukocyte Esterase (Negative) Urine RBC (0-5) /hpf Urine WBC (0-5) /hpf Urine Bacteria (None) /hpf Microbiology - Last 24 Hours (Table) 09/01/16 19:27 Urine Culture - Preliminary Urine,Voided Comments: Pelvic ultrasound report reviewed CT scan - abdomen: report reviewed CT scan - pelvis: report reviewed Assessment and Plan (1) Abdominal pain Status: Acute (2) Nausea and vomiting Status: Acute (3) Urinary tract infection Status: Acute (4) Adnexal mass Status: Acute (5) Adnexal tenderness Status: Acute Plan: I have advised Jacqui that her CA-125 level is normal however this does not completely exclude the possibility of an ovarian cancer. There is a 5-10% chance that it still could be an ovarian cancer. Based on her symptomatology on upon admission however, there may be a likelihood of this being some sort of pelvic abscess. Since she did have fever and chills and did have an elevated white count upon admission, my recommendation is to continue antibiotics at this point. I have recommended that if the mass is still present after her other symptoms improve, we will need to refer to gynecology oncology for further surgery or treatment due to the possibility of ovarian cancer. She does not want to have surgery unless it is absolutely necessary and I agree. There is a significant discrepancy between the sizes on the pelvic ultrasound and the CAT scan. It may be worthwhile to repeat an ultrasound after a couple days to see interval changes. I will follow her with you. Thank you very much for this consultation. Time with Patient: Less than 30
[2016-09-02 20:39] LABS: Glucose,Whole Blood 246 mg/dL (75-99)
--- NOTE | 2016-09-02 21:08 | HP ---
DATE OF ADMISSION: 09/01/2016 PRESENTING COMPLAINT: Abdominal pain, nausea, vomiting. HISTORY OF PRESENTING COMPLAINT: This is a 70-year-old patient of Dr. White whose chronic stable medical conditions include diabetes, hypertension, irritable bowel syndrome, psoriasis, peripheral neuropathy, coronary artery disease with stent. For two and a half weeks, has been having nausea, vomiting, lower abdominal pain. Not able to keep anything down. Denies any diarrhea. No urine infection. No fever. Just weak, tired, rundown. REVIEW OF SYSTEMS: CONSTITUTIONAL: Weak and tired. HEENT: None. RESPIRATORY: None. CARDIOVASCULAR: None. GASTROINTESTINAL: As above. GENITOURINARY: None. MUSCULOSKELETAL: None. Dermatologic: None. HEMATOLOGIC: None. LYMPHATIC: None. PSYCHIATRY: None. NEUROLOGICAL: None. PAST HISTORY: Diabetes, hypertension, irritable bowel syndrome, psoriasis, peripheral neuropathy and cervical cancer, breast cancer, coronary artery disease with stent. PAST SURGICAL HISTORY: Adenoidectomy, breast surgery, cholecystectomy, cardiac cath with stent, hysterectomy, pacemaker, bilateral breast biopsy, left partial mastectomy, left knee scope, left rotator cuff, bilateral cataract removal. SOCIAL HISTORY: The patient did smoke in the past. . FAMILY HISTORY: Cancer. HOME MEDICATIONS: 1. Savaysa 60 mg p.o. daily. 2. Requip 1 mg p.o. t.i.d. 3. Rythmol 150 mg p.o. t.i.d. 4. Zofran 4 mg q.8 p.r.n. 5. Lopressor 25 p.o. b.i.d. 6. ( ) 75 mg b.i.d. 7. Cipro 500 mg q.12. 8. Prilosec 40 mg p.o. daily. 9. Vitamin D3 1000 p.o. daily. 10. Calcium 600 mg daily. 11. Lipitor 40 mg at bedtime. 12. Nitrostat 0.4 sublingual q.8 p.r.n. 13. Lantus 40 units subcu q.h.s. 14. Plavix 75 mg p.o. daily. ALLERGIES: CEFTRIAXONE. On examination, temperature 98, pulse 70, respirations 18, blood pressure 160/75, pulse ox 93% on room air. GENERAL APPEARANCE: Well built, sitting in bed, nauseated, throwing up. EYES: Pupils equal. Conjunctivae normal. HEENT: External appearance of nose and ears normal. Oral cavity with dry mucous membranes. NECK: Short, thick. JVD unable to assess. RESPIRATORY: Effort normal. LUNGS: Fair air entry. CARDIOVASCULAR: First and second sounds normal. No edema. ABDOMEN: Lower abdominal tenderness. No guarding or rigidity. Liver and spleen not palpable. LYMPHATIC: No lymph nodes palpable in the neck or axillae. PSYCHIATRY: Alert and oriented times three. Mood and affect normal. NEUROLOGICAL: Pupils equal. Cranial nerves grossly intact. Power and sensation grossly intact. INVESTIGATIONS: White count 13.5, hemoglobin 12. Potassium 3.9. BUN 24, creatinine 1.0. Accu-Cheks are noted. UA positive for nitrite, leukocyte esterase. CT scan of the abdomen shows ( ) dilated to ( ) cm. Gallbladder is absent. There is abnormal density in the left hemipelvis. Pelvic transvaginal ultrasound, revealed uterus to be absent. Endometrium absent. Left kidney adnexa lesion, somewhat irregularly in shape, some ( ) mass 5.6 x 2.9 x 3.5 cm. ASSESSMENT: 1. This is a patient who presented with two and a half weeks of nausea, vomiting, abdominal pain, nonspecified mass in the left pelvic area. 2. Diabetes mellitus type 2 chronically on insulin with peripheral neuropathy. 3. Essential hypertension. 4. Irritable bowel syndrome. 5. Psoriasis. 6. Coronary artery disease with stent. PLAN: ( ) GI and general surgery was consulted. Also going to consult Gastroenterology. The patient given IV fluids, antiemetics. Care was discussed with the patient. Patient will be put on a clear liquid diet. Await input. Copy to Dr. White.
[2016-09-02] MEDS: ATORVASTATIN 40 MG TAB PO SCH (21:21)
[2016-09-03] MEDS: HYDROmorphone 1 MG/ML 1 ML SYRINGE IV PRN ×3 (06:43→20:19)
[2016-09-03 07:08] LABS: Basophils % (A) 0 %; CH 28.9; CHCM 31.5; Eosinophils % (A) 0 %; HCT 32.5 % (34.0-46.0); HDW 2.63; HGB 10.4 gm/dL (11.4-16.0); Hypochromasia Slight; Luc # (Auto) 0.26; Luc % (Auto) 3; Lymphocytes # (A) 0.9 k/uL (1.0-4.8); Lymphocytes % (A) 10 %; MCH 29.4 pg (25.0-35.0); MCHC 31.9 g/dL (31.0-37.0); MCV 92.2 fL (80.0-100.0); Mean Platelet Volume 8.3; Monocytes # (A) 0.5 k/uL (0-1.0); Monocytes % (A) 5 %; Neutrophils % (A) 82 %; RBC 3.52 m/uL (3.80-5.40); WBC 9.8 k/uL (3.8-10.6); WBC (Perox) 10.34
[2016-09-03 07:38] LABS: Glucose,Whole Blood 213 mg/dL (75-99)
[2016-09-03] MEDS: PANTOPRAZOLE 40 MG TABLET PO SCH (07:54)
[2016-09-03 07:55] LABS: Anion Gap 15 mmol/L; Calcium 8.5 mg/dL (8.4-10.2); Carbon Dioxide 19 mmol/L (22-30); Chloride 104 mmol/L (98-107); Glucose 228 mg/dL (74-99); Non-African American GFR(MDRD) >60 (>60 ml/min/1.73 sqM); Sodium 138 mmol/L (137-145)
[2016-09-03] MEDS: METOPROLOL TARTRATE 25 MG TAB PO SCH ×2 (07:55→21:32)
[2016-09-03] MEDS: CLOPIDOGREL 75 MG TAB PO SCH (07:55)
[2016-09-03] MEDS: EDOXABAN TOSYLATE 60 MG TABLET PO SCH (07:56)
[2016-09-03] MEDS: INSULIN LISPRO (humaLOG) 300 UNIT/3 ML VIAL SQ SCH ×4 (07:57→21:32)
[2016-09-03] MEDS: PROPAFENONE 150 MG TAB PO SCH ×3 (07:57→21:31)
[2016-09-03 08:03] LABS: Blood Urea Nitrogen 17 mg/dL (7-17); Potassium 4.2 mmol/L (3.5-5.1)
--- NOTE | 2016-09-03 08:15 | P.PN ---
Progress Note - Text Patient seen and evaluated this evening. Patient's family including daughter and at bedside. I followed up with them regarding their imaging and consultation with the periodontal assistant. At this point, imaging reflects gynecological source. I have discussed with her ovarian etiology or cancer cannot be entirely excluded. At this time, management deferred to medicine team and gynecology recommendations. Separately, patient reports a very high risk cardiac history which is unstable and needs further treatment. She reports deferring any surgical intervention until cardiac risk is addressed. I am in agreement with that. Again, management per medicine and gynecology group. Will follow as needed.
[2016-09-03] MEDS: ONDANSETRON 4 MG/2 ML VIAL IVP PRN ×2 (08:25→15:08)
--- NOTE | 2016-09-03 10:55 | P.PN ---
Progress Note - Text Patient seen and examined with her and daughter present. She states her pain is better today however she still is having nausea and vomiting and barely able to hold anything down. She still has pain in the left lower quadrant and somewhat in the right lower quadrant but it is only when you push on it and not when she is sitting still. Vital signs are stable. Abdomen soft with positive bowel sounds 4 but still definite tenderness in the left and right lower quadrant with some mild guarding in the left lower quadrant with palpation. Urine culture does show greater than 100,000 E. coli. Of note she is currently not on any antibiotics. Impression is left lower quadrant adnexal mass with a differential including possible ovarian tumor, pelvic abscess, possible diverticular abscess, or possible scar tissue from her previous inguinal hernia surgery. My recommendations are to repeat a pelvic ultrasound tomorrow to see interval progression or resolution of the left adnexal mass. I am recommending that she be restarted on antibiotics for her urinary tract infection because this could be contributing to her nausea and vomiting. I agree with GI consultation. I did have an extensive conversation with the patient and her regarding potential surgery and the need to have this done at [facility] with a RN [facility] oncologist. If the mass is not going down in size or is getting larger, my recommendation will be referral to gynecology-oncology for further evaluation. If her clinical picture improves to the point that she can be discharged, I will follow-up with her as an outpatient and make the referral to [facility] oncology from there. If her picture worsens or she is not getting better, my recommendation will be to try to transfer to [facility] and we will need to get discharge planning involved in this if necessary. She will also need cardiology clearance prior to any surgical intervention.
[2016-09-03 11:40] LABS: Glucose,Whole Blood 228 mg/dL (75-99)
[2016-09-03] MEDS: CHOLECALCIFEROL 1,000 UNIT TAB PO SCH (11:52)
[2016-09-03] MEDS: CALCIUM CARBONATE 500 MG CHEWABLE PO SCH (11:52)
[2016-09-03] MEDS ORDERED: LEVOFLOXACIN 500MG-D5W PMX 500 MG in DEXTROSE/WATER 1 100ML.BAG IVPB SCH (14:00)
[2016-09-03 17:20] LABS: Glucose,Whole Blood 213 mg/dL (75-99)
[2016-09-03 21:16] LABS: Glucose,Whole Blood 183 mg/dL (75-99)
[2016-09-03] MEDS: ATORVASTATIN 40 MG TAB PO SCH (21:32)
--- NOTE | 2016-09-03 21:37 | P.PN ---
Progress Note - Text DATE OF SERVICE: 09/03/2016 PRESENTING COMPLAINT: Abdominal pain nausea vomiting INTERVAL HISTORY: This 70-year-old patient who has a nonspecific mass in the left pelvic area, causing nausea and vomiting. Continues to have pain, IV antibiotics of Levaquin continue. patient very emotional just wants to understand what's going on. Feels weak and tired. Lying in bed, anxious appearing. Tries to eat very difficult to keep things down sits up periodically in the chair. REVIEW OF SYSTEMS: Done for constitutional ,cardiovascular, GI, pulmonary with relevant findings as above. CURRENT MEDICATIONS Lipitor, Plavix, levofloxacin IV, Dilaudid, overall Zofran, Protonix. PHYSICAL EXAM: VITAL SIGNS: Temperature 98.6, pulse 70 respirations 18, blood pressure 131/71, oxygen saturation 98% on room air. GENERAL APPEARANCE: . Lying in bed, not in distress. EYES: Pupils equal. Conjunctiva normal. NECK: JVD not raised. Mass not palpable. RESPIRATORY: Respiratory effort normal. Lungs clear to auscultation. CARDIOVASCULAR: First and second sounds normal. No edema. ABDOMEN: Soft. Tenderness noted to the left lower quadrant Liver and spleen not palpable. No tenderness. No mass palpable. PSYCHIATRY: Alert and oriented x3. Mood and affect normal. NEUROLOGICAL: Cranial nerves grossly intact. No facial asymmetry. Power and sensation grossly intact INVESTIGATIONS: Hemoglobin 10.4, platelet count 308, sodium 138, potassium 4.2, BUN 17, creatinine 0.83, Accu-Cheks noted Transvaginal ultrasound: Hypoechoic left at adnexal abnormality likely corresponds the portion of the CT finding. Consider IGNITION MECHANIC and surgical consult. 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 Essential hypertension. Irritable bowel syndrome Psoriasis Coronary artery disease, with stent. PLAN: At the present time no need of surgical intervention IV antibiotics to continue. , IGNITION MECHANIC, recommends if worsening of mass or symptoms not improving perhaps transferring to [facility] might be in order. For now we'll continue with her current medication and treatment plan and monitor this patient very closely. TANKAGE GRINDER statement: Patient was seen and examined by nurse practitioner Marleny Encarnacion in all elements of the case discussed with attending is Dr. Pacheco
--- NOTE | 2016-09-03 22:05 | P.PN ---
Subjective Principal diagnosis: History of left pelvic mass The patient is a 70-year-old female who comes in with history of chronic left lower quadrant abdominal pain. Computed tomography scan of the abdomen and pelvis was suspicious for left pelvic mass where left ovarian mass cannot be excluded. An ultrasound of the pelvis demonstrated questionable left ovarian mass. General surgery was consulted for history of pelvic abscess. I had a discussion with the family yesterday whereby workup and additional recommendations are per gynecology. At this time, she is resting comfortably. Her parents are at bedside. Objective - Vital Signs Vital signs: Vital Signs Temp 98.2 F 09/03/16 15:00 Pulse 77 09/03/16 16:00 Resp 18 09/03/16 16:00 BP 188/77 09/03/16 15:00 Pulse Ox 96 09/03/16 15:00 Intake & Output 09/03/16 09/03/16 09/04/16 06:59 18:59 06:59 Intake Total 540 1150 Output Total 50 Balance 540 1100 Weight 80.286 kg 80.286 kg Intake: IV 300 Sodium Chloride 0.9% 1, 300 000 ml @ 100 mls/hr IV . Q10H [facility] Rx#:[id number] Intake, IV Titration 1000 Amount Levofloxacin 500Mg-D5w 1000 Pmx 500 mg In Dextrose/ Water 1 100ml.bag @ 100 mls/hr IVPB Q24H [facility] Rx#: [id number] Oral 240 150 Output: Emesis 50 Other: Voiding Method Toilet Toilet # Voids 1 3 - Exam GENERAL: Well developed and in no acute distress. Pleasant. HEENT: No sclera icterus. Extraocular movements grossly intact. Moist buccal mucosa. Head is atraumatic, normocephalic. Hears conversational speech. No nasal drainage. NECK: Supple without lymphadenopathy. No JV distention. CHEST: Non-labored respirations and equal bilateral excursions. CARDIOVASCULAR: Regular rate and rhythm. Palpable 2+ radial pulses. ABDOMEN: Soft. Nondistended. No peritonitis. MUSCULOSKELETAL: No clubbing, cyanosis or edema. NEUROLOGIC: No focal or lateralizing signs. PSYCH: Appropriate affect. Alert and oriented to person, place and time. - Labs CBC & Chem 7: 09/03/16 06:32 09/03/16 06:32 Labs: Abnormal Lab Results - Last 24 Hours (Table) 09/03/16 09/03/16 09/03/16 Range/Units 06:32 06:32 07:29 RBC 3.52 L (3.80-5.40) m/uL Hgb 10.4 L (11.4-16.0) gm/dL Hct 32.5 L (34.0-46.0) % Neutrophils # 8.0 H (1.3-7.7) k/uL Lymphocytes # 0.9 L (1.0-4.8) k/uL Carbon Dioxide 19 L (22-30) mmol/L Glucose 228 H (74-99) mg/dL POC Glucose (mg/dL) 213 H (75-99) mg/dL 09/03/16 09/03/16 09/03/16 Range/Units 11:34 17:16 21:00 RBC (3.80-5.40) m/uL Hgb (11.4-16.0) gm/dL Hct (34.0-46.0) % Neutrophils # (1.3-7.7) k/uL Lymphocytes # (1.0-4.8) k/uL Carbon Dioxide (22-30) mmol/L Glucose (74-99) mg/dL POC Glucose (mg/dL) 228 H 213 H 183 H (75-99) mg/dL Microbiology - Last 24 Hours (Table) 09/01/16 18:03 Blood Culture - Preliminary Blood No Growth after 48 hours 09/01/16 19:27 Urine Culture - Preliminary Urine,Voided Gram Neg Bacilli - Imaging and Cardiology US - abdomen: report reviewed, image reviewed Assessment and Plan (1) Ovarian mass, left Status: Acute (2) Adnexal mass Status: Acute (3) Leukocytosis Status: Acute (4) Urinary tract infection Status: Acute Plan: 1. Repeat imaging is pending. 2. Per discussion with family, additional workup is needed to exclude ovarian etiology. 3. We'll continue to follow once additional imaging is obtained. 4. Management per medicine and gynecology.
--- NOTE | 2016-09-03 22:59 | P.CONS ---
History of Present Illness - Reason for Consult Consult date: 09/03/16 - History of Present Illness The patient is a 70-year-old female who presented with lower abdominal pains as well as nausea and vomiting of around 2-3 weeks' duration. The patient indicated that she always had stomach issues but these complaints are different from her baseline. She has history of diarrhea predominant irritable bowel syndrome over the years and she has recently been placed on viberzi which improved her symptoms significantly. She took it twice a day initially and now she takes it once a day with fairly good control. She had prior upper endoscopy and colonoscopy The patient had hysterectomy in her late 20s for cervical cancer. A CT of the abdomen and a pelvic ultrasound were completed and the finding was that of left ovarian abnormality. She has been evaluated by surgery and gynecology. She would be having a repeat ultrasound on Monday as there has been some discrepancy between the ultrasound and CT regarding the size of the pelvic mass. The patient had hernia repair on the left side within the last few weeks. Review of Systems Constitutional: Denied fever, chills or any unintentional weight loss Neurologic: No headaches, double vision or any new sensory or motor changes Cardiopulmonary: Denied any chest pains, shortness of breath or palpitations. History of CAHD S/P [place] Gastrointestinal: See present illness above Endocrine: Has history of diabetes, no thyroid disease. Genitourinary: No hematuria, dysuria or frequency. History of breast and cervical cancer Skin: History of psoriasis Musculoskeletal: Has arthritis and psoriasis Psychiatric: No anxiety or depression Past Medical History Past Medical History: Cancer, Diabetes Mellitus, Hypertension, Myocardial Infarction ([place]), Skin Disorder Additional Past Medical History / Comment(s): HEART MURMUR, IBS, RECENT UTI, PSORIASIS, HX SHINGLES, NEUROPATHY, CERVICAL AND BREAST CANCER-NO CHEMO OR RAD. , PT STATES THAT SHE FELL ON 09/28/13 AND HAS NUMEROUS BRUISES Last Myocardial Infarction Date:: 2016 History of Any Multi-Drug Resistant Organisms: None Reported Past Surgical History: Adenoidectomy, Breast Surgery, Cholecystectomy, Heart Catheterization With Stent, Hysterectomy, Orthopedic Surgery, Pacemaker, Tonsillectomy Additional Past Surgical History / Comment(s): BILAT BREAST BIOPSY, LT PARTIAL MASTECTOMY-1976, LT KNEE SCOPE, REPAIR LT ROTATOR CUFF, LT CTR, BILAT CATARACT REMOVAL, COLONOSCOPY, EGD Past Anesthesia/Blood Transfusion Reactions: Previous Problems w/ Anesthesia, Motion Sickness, Postoperative Nausea & Vomiting (PONV) Date of Last Stent Placement:: 2011 Type of Cardiac Device: Permanent Pacemaker Device Placement Date:: 05/19/16 Past Psychological History: Anxiety Smoking Status: Former smoker Past Alcohol Use History: Occasional Past Drug Use History: None Reported - Past Family History Father Family Medical History: Cancer (Long) Mother Family Medical History: Cancer (Lungs) Brother(s) Family Medical History: Cancer (Lung and throat) Sister(s) Family Medical History: Cancer (Breast) Medications and Allergies Home Medications Medication Instructions Recorded Confirmed Type Clopidogrel [Plavix] 75 mg PO DAILY 10/01/13 09/01/16 History Insulin Glargine [Lantus] 40 unit SQ HS 10/01/13 09/01/16 History Nitroglycerin Sl Tabs [Nitrostat] 0.4 mg SL DIRECTED PRN 10/01/13 09/01/16 History Atorvastatin [Lipitor] 40 mg PO HS 09/01/16 09/01/16 History Calcium Carbonate [Calcium] 600 mg PO DAILY 09/01/16 09/01/16 History Cholecalciferol (Vitamin D3) 2,000 unit PO DAILY 09/01/16 09/01/16 History [Vitamin D3] Ciprofloxacin HCl [Cipro] 500 mg PO Q12HR 09/01/16 09/01/16 History Edoxaban Tosylate [Savaysa] 60 mg PO DAILY 09/01/16 09/01/16 History Eluxadoline [Viberzi] 75 mg PO BID 09/01/16 09/01/16 History Metoprolol Tartrate [Lopressor] 25 mg PO BID 09/01/16 09/01/16 History Omeprazole [PriLOSEC] 40 mg PO DAILY 09/01/16 09/01/16 History Ondansetron Odt [Zofran Odt] 4 mg PO Q8HR PRN 09/01/16 09/01/16 History Propafenone [Rythmol] 150 mg PO TID 09/01/16 09/01/16 History rOPINIRole HCL [Requip] 1 mg PO TID 09/01/16 09/01/16 History Allergies Allergy/AdvReac Type Severity Reaction Status Date / Time ceftriaxone sodium Allergy HIVES Verified 09/01/16 19:17 [From [facility]] Physical Exam Vitals: Vital Signs Temp Pulse Resp BP Pulse Ox 09/03/16 07:00 98.6 F 70 18 131/71 98 09/02/16 23:22 17 09/02/16 22:45 97.8 F 70 17 159/70 96 09/02/16 16:00 70 18 09/02/16 15:00 98.4 F 70 18 170/74 95 Intake and Output 09/02/16 09/03/16 09/03/16 22:59 06:59 14:59 Intake Total 540 1150 Balance 540 1150 Intake: IV 300 Sodium Chloride 0.9% 1, 300 000 ml @ 100 mls/hr IV . Q10H [facility] Rx#:[id number] Intake, IV Titration 1000 Amount Levofloxacin 500Mg-D5w 1000 Pmx 500 mg In Dextrose/ Water 1 100ml.bag @ 100 mls/hr IVPB Q24H [facility] Rx#: [id number] Oral 240 150 Other: Voiding Method Toilet Toilet Toilet # Voids 1 1 3 Weight 80.286 kg 80.286 kg Patient Weight 09/04/16 06:59 Weight 80.286 kg General: Appeared stated age, very pleasant in no acute distress Head and neck: Normocephalic and atraumatic. Conjunctivae pink and sclerae not icteric. Mucous membranes moist and pink. No masses in the neck or tracheal shifts Lungs: Clear to auscultation with no dullness to percussion Heart: Regular, no abnormal sounds, murmurs, gallops or friction rubs Abdomen: Soft, no masses or organomegalies. No tenderness. Bowel sounds present Extremities: No clubbing, cyanosis or edema Neurologic: Alert and oriented 3. Cranial nerves grossly intact. No gross sensory or motor abnormalities Results CBC & Chem 7: 09/03/16 06:32 09/03/16 06:32 Labs: Abnormal Lab Results - Last 24 Hours (Table) 09/02/16 09/02/16 09/02/16 Range/Units 15:32 17:02 20:30 RBC (3.80-5.40) m/uL Hgb (11.4-16.0) gm/dL Hct (34.0-46.0) % Neutrophils # (1.3-7.7) k/uL Lymphocytes # (1.0-4.8) k/uL Carbon Dioxide (22-30) mmol/L Glucose (74-99) mg/dL POC Glucose (mg/dL) 301 H 282 H 246 H (75-99) mg/dL 09/03/16 09/03/16 09/03/16 Range/Units 06:32 06:32 07:29 RBC 3.52 L (3.80-5.40) m/uL Hgb 10.4 L (11.4-16.0) gm/dL Hct 32.5 L (34.0-46.0) % Neutrophils # 8.0 H (1.3-7.7) k/uL Lymphocytes # 0.9 L (1.0-4.8) k/uL Carbon Dioxide 19 L (22-30) mmol/L Glucose 228 H (74-99) mg/dL POC Glucose (mg/dL) 213 H (75-99) mg/dL 09/03/16 Range/Units 11:34 RBC (3.80-5.40) m/uL Hgb (11.4-16.0) gm/dL Hct (34.0-46.0) % Neutrophils # (1.3-7.7) k/uL Lymphocytes # (1.0-4.8) k/uL Carbon Dioxide (22-30) mmol/L Glucose (74-99) mg/dL POC Glucose (mg/dL) 228 H (75-99) mg/dL Microbiology - Last 24 Hours (Table) 09/01/16 19:27 Urine Culture - Preliminary Urine,Voided Gram Neg Bacilli 09/01/16 18:03 Blood Culture - Preliminary Blood No Growth after 24 hours Assessment and Plan Plan: 70-year-old female with abdominal pain and nausea and vomiting with finding of left ovarian abnormality. The patient has history of diarrhea predominant irritable bowel syndrome fairly well controlled with medical therapy. There is no suggestion of mechanical obstruction or ileus. If her vomiting persists, an alternative etiology will have to be considered including gastritis or peptic ulcer disease. I discussed with the patient the possible next steps including possible upper endoscopy if her symptoms persist. I will discuss with you and follow with you with interest.
[2016-09-04 07:39] LABS: Basophils % (A) 0 %; CH 28.6; CHCM 30.3; Eosinophils # (A) 0.1 k/uL (0-0.7); Eosinophils % (A) 1 %; HCT 33.4 % (34.0-46.0); HDW 2.53; HGB 10.1 gm/dL (11.4-16.0); Hypochromasia Moderate; Luc # (Auto) 0.18; Luc % (Auto) 2; Lymphocytes # (A) 0.9 k/uL (1.0-4.8); Lymphocytes % (A) 10 %; MCH 28.7 pg (25.0-35.0); MCHC 30.3 g/dL (31.0-37.0); MCV 94.7 fL (80.0-100.0); Mean Platelet Volume 8.7; Monocytes # (A) 0.6 k/uL (0-1.0); Monocytes % (A) 6 %; Neutrophils % (A) 82 %; RBC 3.52 m/uL (3.80-5.40); RDW 13.3 % (11.5-15.5); WBC 9.7 k/uL (3.8-10.6); WBC (Perox) 10.32
[2016-09-04 07:44] LABS: Glucose,Whole Blood 181 mg/dL (75-99)
[2016-09-04] MEDS: ONDANSETRON 4 MG/2 ML VIAL IVP PRN (07:52)
[2016-09-04] MEDS: CLOPIDOGREL 75 MG TAB PO SCH (07:57)
[2016-09-04] MEDS: METOPROLOL TARTRATE 25 MG TAB PO SCH ×2 (07:57→20:51)
[2016-09-04] MEDS: INSULIN LISPRO (humaLOG) 300 UNIT/3 ML VIAL SQ SCH ×4 (07:58→21:50)
[2016-09-04] MEDS: EDOXABAN TOSYLATE 60 MG TABLET PO SCH (07:58)
[2016-09-04 08:11] LABS: Anion Gap 13 mmol/L; Blood Urea Nitrogen 12 mg/dL (7-17); Calcium 8.4 mg/dL (8.4-10.2); Carbon Dioxide 21 mmol/L (22-30); Chloride 104 mmol/L (98-107); Glucose 182 mg/dL (74-99); Non-African American GFR(MDRD) >60 (>60 ml/min/1.73 sqM); Potassium 3.4 mmol/L (3.5-5.1); Sodium 138 mmol/L (137-145)
[2016-09-04] MEDS: PANTOPRAZOLE 40 MG TABLET PO SCH (08:23)
[2016-09-04] MEDS: PROPAFENONE 150 MG TAB PO SCH ×3 (08:23→20:52)
[2016-09-04] MEDS: PIPERACILLIN-TAZOBACTAM 3.375 GM in DEXTROSE/WATER 1 50ML.BAG IVPB SCH ×3 (09:22→23:01)
[2016-09-04] MEDS: HYDROmorphone 1 MG/ML 1 ML SYRINGE IV PRN ×2 (10:20→19:55)
[2016-09-04] MEDS: CHOLECALCIFEROL 1,000 UNIT TAB PO SCH (11:10)
[2016-09-04] MEDS: CALCIUM CARBONATE 500 MG CHEWABLE PO SCH (11:10)
--- NOTE | 2016-09-04 11:15 | US ---
EXAMINATION TYPE: US pelvis complete transvag DATE OF EXAM: 09/04/2016 COMPARISON: NONE CLINICAL HISTORY: Pelvic pain, interval follow-up. TECHNIQUE: Date of LMP: hysterectomy at 27 EXAM MEASUREMENTS: Uterus: Surgically absent cm Right Ovary: not visualized Left Ovary: not visualized with certainty Limited due to bowel gas, pt body habitus, and pt tolerance. 1. Uterus: Surgically absent 2. Right Ovary: Obscured by overlying bowel gas, not visualized 3. Left Ovary: Obscured by overlying bowel gas, not visualized with certainty 4. Bilateral Adnexa: Obscured by overlying bowel gas, questionable hypoechoic heterogenous area supe rior to bladder and in Lt Adnexa. 5. Posterior cul-de-sac: wnl IMPRESSION: 1. Persistent abnormal complex area within the left hemipelvis. May represent neoplasm, hematoma, phl egmon. Correlate clinically.
--- NOTE | 2016-09-04 11:56 | PN ---
DATE OF SERVICE: 09/03/2016 ATTENDING NOTE: This patient was seen and examined by me earlier today. Patient presented with abdominal pain, nausea, and vomiting, which are present, though a little bit better. Still having lower abdominal pain. Pelvic mass is not clear if it is ovarian mass or if it is infectious process like localized abscess. Patient also has urinary tract infection for which she has been started on antibiotics. Family is at the bedside. On examination the patient is afebrile. ABDOMEN: Left lower quadrant tenderness. No guarding or rigidity. INVESTIGATIONS: White count was normal. ASSESSMENT: This is a patient who presented with nausea, vomiting and lower abdominal pain, tender with mass that could be ovarian or could be infectious process too. It is not clear; is being followed by Dr. Springer from [facility] and Dr. Woodward from general surgery. Patient also has an associated urinary tract infection, but that should not explain the left lower quadrant tenderness. Care was discussed at length with the patient and family members at the bedside. Did say that I am going to follow with [facility] and Surgery. Depending on what the clinical course is the patient already on IV Levaquin. Even though the patient is tender there does not appear to be fulminant like fever or white count. Hence, the clinical picture is not entirely clear. Wonder if this is an inflammatory malignant mass that is manifesting with tenderness and nausea, vomiting. Will follow up with my colleagues.
[2016-09-04 12:32] LABS: Glucose,Whole Blood 200 mg/dL (75-99)
[2016-09-04 17:29] LABS: Glucose,Whole Blood 208 mg/dL (75-99)
--- NOTE | 2016-09-04 18:57 | P.PN ---
Subjective Principal diagnosis: History of left pelvic mass The patient is a 70-year-old female who comes in with history of chronic left lower quadrant abdominal pain. Initially she presented with intractable nausea and vomiting. Since admission, her nausea and vomiting has improved. She has separate workup of a mass found along the left pelvis. Gynecology has been consulted including myself. Additionally gastroenterology has been consulted for her history of intractable nausea and vomiting. As her nausea is completely resolved her main concern includes workup of left ovarian/pelvic mass. She reports personal history of unstable cardiac condition which is still pending open heart bypass. Overall, her symptoms has improved since admission while being on antibiotics. Objective - Vital Signs Vital signs: Vital Signs Temp 97.7 F 09/04/16 14:51 Pulse 71 09/04/16 15:50 Resp 18 09/04/16 15:50 BP 152/74 09/04/16 14:51 Pulse Ox 98 09/04/16 14:51 Intake & Output 09/03/16 09/04/16 09/04/16 18:59 06:59 18:59 Intake Total 1150 240 200 Output Total 50 Balance 1100 240 200 Weight 80.286 kg 80.286 kg Intake: Intake, IV Titration 1000 50 Amount Levofloxacin 500Mg-D5w 1000 Pmx 500 mg In Dextrose/ Water 1 100ml.bag @ 100 mls/hr IVPB Q24H KARIE Rx#: [id number] Piperacillin-Tazobactam 3 50 .375 gm In Dextrose/Water 1 50ml.bag @ 12.5 mls/hr IVPB Q8HR KARIE Rx#: [id number] Oral 150 240 150 Output: Emesis 50 Other: Voiding Method Toilet Toilet Toilet # Voids 3 1 2 - Exam GENERAL: Well developed and in no acute distress. Pleasant. HEENT: No sclera icterus. Extraocular movements grossly intact. Moist buccal mucosa. Head is atraumatic, normocephalic. Hears conversational speech. No nasal drainage. NECK: Supple without lymphadenopathy. No JV distention. CHEST: Non-labored respirations and equal bilateral excursions. CARDIOVASCULAR: Regular rate and rhythm. Palpable 2+ radial pulses. ABDOMEN: Soft. Nondistended. No peritonitis. Mild tenderness along the left lower quadrant. No epigastric pain. MUSCULOSKELETAL: No clubbing, cyanosis or edema. NEUROLOGIC: No focal or lateralizing signs. PSYCH: Appropriate affect. Alert and oriented to person, place and time. - Labs CBC & Chem 7: 09/04/16 06:41 09/04/16 06:41 Labs: Abnormal Lab Results - Last 24 Hours (Table) 09/03/16 09/03/16 09/04/16 Range/Units 17:16 21:00 06:41 RBC 3.52 L (3.80-5.40) m/uL Hgb 10.1 L (11.4-16.0) gm/dL Hct 33.4 L (34.0-46.0) % MCHC 30.3 L (31.0-37.0) g/dL Neutrophils # 8.0 H (1.3-7.7) k/uL Lymphocytes # 0.9 L (1.0-4.8) k/uL Potassium (3.5-5.1) mmol/L Carbon Dioxide (22-30) mmol/L Glucose (74-99) mg/dL POC Glucose (mg/dL) 213 H 183 H (75-99) mg/dL 09/04/16 09/04/16 09/04/16 Range/Units 06:41 07:28 12:30 RBC (3.80-5.40) m/uL Hgb (11.4-16.0) gm/dL Hct (34.0-46.0) % MCHC (31.0-37.0) g/dL Neutrophils # (1.3-7.7) k/uL Lymphocytes # (1.0-4.8) k/uL Potassium 3.4 L (3.5-5.1) mmol/L Carbon Dioxide 21 L (22-30) mmol/L Glucose 182 H (74-99) mg/dL POC Glucose (mg/dL) 181 H 200 H (75-99) mg/dL Microbiology - Last 24 Hours (Table) 09/01/16 19:27 Urine Culture - Final Urine,Voided Escherichia coli 09/01/16 18:03 Blood Culture - Preliminary Blood No Growth after 48 hours - Imaging and Cardiology US - abdomen: report reviewed (No change from previous ultrasound with poor demonstration of the bilateral ovaries.), image reviewed Assessment and Plan (1) Ovarian mass, left Status: Acute (2) Adnexal mass Status: Acute (3) Leukocytosis Status: Acute (4) Urinary tract infection Status: Acute (5) Coronary artery disease involving [place] heart with unstable angina pectoris Status: Acute (6) Unstable chest pain due to insufficient blood supply to heart Status: Acute Plan: 1. Despite her repeat imaging, the results have been unchanged. 2. I have reviewed with her current risks for procedures including operations. She reports unstable cardiac disease which may precipitate a cardiac event. I would recommend deferring any additional procedures until her cardiac status is stabilized or addressed. 3. As a gynecological cause of her left pelvic mass is still unclear, I agree with gynecology for referral to a cancer center. This may also be done as an outpatient. 4. At this time, no acute surgical intervention is advised. 5. Management of urinary tract infection per medicine. I am more than happy to follow this patient as an outpatient. Otherwise, we'll follow as needed. Time with Patient: Greater than 30
--- NOTE | 2016-09-04 19:41 | P.PN ---
Progress Note - Text DATE OF SERVICE: 09/04/2016 PRESENTING COMPLAINT: Abdominal pain nausea vomiting INTERVAL HISTORY: This 70-year-old patient who has a nonspecific mass in the left pelvic area, causing nausea and vomiting. Continues to have pain, although much improved today. IV Zosyn continues. Sitting at the bedside, preparing for shower eaten breakfast and was able to keep it down.. Less anxious appearing. Encouraging patient to walk in the hallways, sit in the chair and change positions frequently. Patient is tolerating some of her diet, walking in the hallways, and had a BM today REVIEW OF SYSTEMS: Done for constitutional ,cardiovascular, GI, pulmonary with relevant findings as above. CURRENT MEDICATIONS Lipitor, Plavix, Zosyn IV, Dilaudid, overall Zofran, Protonix. PHYSICAL EXAM: VITAL SIGNS: Dr. Jones.1, pulse 71, respiratory rate 18, blood pressure 152/67, oxygen saturation 97% on room air. GENERAL APPEARANCE: . Lying in bed, not in distress. EYES: Pupils equal. Conjunctiva normal. NECK: JVD not raised. Mass not palpable. RESPIRATORY: Respiratory effort normal. Lungs clear to auscultation. CARDIOVASCULAR: First and second sounds normal. No edema. ABDOMEN: Soft. Tenderness noted to the left lower quadrant Liver and spleen not palpable. No tenderness. No mass palpable. PSYCHIATRY: Alert and oriented x3. Mood and affect normal. INVESTIGATIONS: Hemoglobin 10.1 platelet count 310, potassium 3.4, Accu-Cheks noted. 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 Essential hypertension. Irritable bowel syndrome Psoriasis Coronary artery disease, with stent. PLAN: Patient is in fact doing better today, so at the present time no need of surgical intervention and should one be needed patient should be cleared by cardiology given her history. PRICING ANALYST, recommends if worsening of mass or symptoms not improving perhaps transferring to [facility] might be in order. For now we'll continue with her current medication and treatment plan and monitor this patient very closely.
[2016-09-04] MEDS: ATORVASTATIN 40 MG TAB PO SCH (20:51)
[2016-09-04 21:11] LABS: Glucose,Whole Blood 225 mg/dL (75-99)
--- NOTE | 2016-09-05 02:58 | P.PN ---
Subjective Principal diagnosis: Abdominal pain, nausea and vomiting The patient is a 70-year-old female who presented with lower abdominal pains as well as nausea and vomiting of around 2-3 weeks' duration. The patient indicated that she always had stomach issues but these complaints are different from her baseline. She has history of diarrhea predominant irritable bowel syndrome over the years and she has recently been placed on viberzi which improved her symptoms significantly. She took it twice a day initially and now she takes it once a day with fairly good control. She had prior upper endoscopy and colonoscopy The patient had hysterectomy in her late 20s for cervical cancer. A CT of the abdomen and a pelvic ultrasound were completed and the finding was that of left ovarian abnormality. She has been evaluated by surgery and gynecology. She would be having a repeat ultrasound on Monday as there has been some discrepancy between the ultrasound and CT regarding the size of the pelvic mass. The patient had hernia repair on the left side within the last few weeks. Today, patient reports significant improvement in her nausea and vomiting and has been tolerating her liquid diet and asked for advancing her diet. She already had a repeat ultrasound today, that showed hypoechoic heterogeneous area on the left side superior to the bladder. Objective - Vital Signs Vital signs: Vital Signs Temp 97.1 F L 09/04/16 07:00 Pulse 71 09/04/16 07:00 Resp 18 09/04/16 07:00 BP 152/67 09/04/16 07:00 Pulse Ox 97 09/04/16 07:00 Intake & Output 09/03/16 09/04/16 09/04/16 18:59 06:59 18:59 Intake Total 1150 240 200 Output Total 50 Balance 1100 240 200 Weight 80.286 kg 80.286 kg Intake: Intake, IV Titration 1000 50 Amount Levofloxacin 500Mg-D5w 1000 Pmx 500 mg In Dextrose/ Water 1 100ml.bag @ 100 mls/hr IVPB Q24H KARIE Rx#: [id number] Piperacillin-Tazobactam 3 50 .375 gm In Dextrose/Water 1 50ml.bag @ 12.5 mls/hr IVPB Q8HR KARIE Rx#: [id number] Oral 150 240 150 Output: Emesis 50 Other: Voiding Method Toilet Toilet Toilet # Voids 3 1 2 - Exam General: Appeared stated age, very pleasant in no acute distress Head and neck: Normocephalic and atraumatic. Conjunctivae pink and sclerae not icteric. Mucous membranes moist and pink. No masses in the neck or tracheal shifts Lungs: Clear to auscultation with no dullness to percussion Heart: Regular, no abnormal sounds, murmurs, gallops or friction rubs Abdomen: Soft, no masses or organomegalies. No tenderness. Bowel sounds present Extremities: No clubbing, cyanosis or edema Neurologic: Alert and oriented 3. Cranial nerves grossly intact. No gross sensory or motor abnormalities - Labs CBC & Chem 7: 09/04/16 06:41 09/04/16 06:41 Labs: Abnormal Lab Results - Last 24 Hours (Table) 09/03/16 09/03/16 09/04/16 Range/Units 17:16 21:00 06:41 RBC 3.52 L (3.80-5.40) m/uL Hgb 10.1 L (11.4-16.0) gm/dL Hct 33.4 L (34.0-46.0) % MCHC 30.3 L (31.0-37.0) g/dL Neutrophils # 8.0 H (1.3-7.7) k/uL Lymphocytes # 0.9 L (1.0-4.8) k/uL Potassium (3.5-5.1) mmol/L Carbon Dioxide (22-30) mmol/L Glucose (74-99) mg/dL POC Glucose (mg/dL) 213 H 183 H (75-99) mg/dL 09/04/16 09/04/16 09/04/16 Range/Units 06:41 07:28 12:30 RBC (3.80-5.40) m/uL Hgb (11.4-16.0) gm/dL Hct (34.0-46.0) % MCHC (31.0-37.0) g/dL Neutrophils # (1.3-7.7) k/uL Lymphocytes # (1.0-4.8) k/uL Potassium 3.4 L (3.5-5.1) mmol/L Carbon Dioxide 21 L (22-30) mmol/L Glucose 182 H (74-99) mg/dL POC Glucose (mg/dL) 181 H 200 H (75-99) mg/dL Microbiology - Last 24 Hours (Table) 06/15/17 19:27 Urine Culture - Final Urine,Voided Escherichia coli 09/01/16 18:03 Blood Culture - Preliminary Blood No Growth after 48 hours Assessment and Plan Plan: 70-year-old female with abdominal pain and nausea and vomiting with finding of left ovarian abnormality. The patient has history of diarrhea predominant irritable bowel syndrome fairly well controlled with medical therapy. Since her nausea and vomiting has improved I did not suggest any further workup at this time. The patient will be referred to a tertiary cancer center for further evaluation of the ovarian finding. I agree with your current plans. I'll be happy to see if her symptoms recur. In the meantime, I would advance her diet to soft foods as tolerated.
[2016-09-05 07:10] LABS: Glucose,Whole Blood 224 mg/dL (75-99)
[2016-09-05] MEDS: ELUXADOLINE 75 MG PO SCH ×4 (07:11→07:15)
--- NOTE | 2016-09-05 07:32 | PN ---
DATE OF SERVICE: 09/04/2016 Attending note: This patient was seen and examined by me earlier today. I reviewed the note of my nurse practitioner Ms. Encarnacion. Discussed additional findings below. This is a patient with nausea, vomiting and lower abdominal pain, also had a UTI. Patient actually did tolerate some food today. Louin a little bit better. Was out of bed. is at bedside. On examination, afebrile, blood pressure 152/67. On examination, lower abdominal tenderness. No guarding or rigidity. LUNGS: Clear. INVESTIGATIONS: White count 9.7, hemoglobin 10.1. Potassium 3.4. Accu-Cheks are noted. Urine cultures growing E. coli. ASSESSMENT: 1. Urinary tract infection with possible cystitis that may explain the lower quadrant tenderness. 2. Questionable mass in the left lower quadrant pelvic area. 3. Urinary tract infection from Escherichia coli. PLAN: Given that patient has started to antibiotics this well could be urinary tract infection cystitis. Note the left pelvic mass cause is still unclear and differential includes could be malignancy and/or inflammatory process. PLAN: Care was discussed with the patient and . Get a transvaginal ultrasound ( ) different. At this point, will continue with antibiotics and follow.
[2016-09-05] MEDS: HYDROmorphone 1 MG/ML 1 ML SYRINGE IV PRN ×3 (07:51→21:27)
[2016-09-05] MEDS: PIPERACILLIN-TAZOBACTAM 3.375 GM in DEXTROSE/WATER 1 50ML.BAG IVPB SCH ×2 (07:54→15:56)
[2016-09-05] MEDS: INSULIN LISPRO (humaLOG) 300 UNIT/3 ML VIAL SQ SCH ×4 (07:55→20:54)
[2016-09-05 07:58] LABS: Basophils % (A) 0 %; CH 28.8; CHCM 31.3; Eosinophils # (A) 0.1 k/uL (0-0.7); Eosinophils % (A) 1 %; HCT 30.8 % (34.0-46.0); HDW 2.75; HGB 9.7 gm/dL (11.4-16.0); Hypochromasia Slight; Luc # (Auto) 0.21; Luc % (Auto) 2; Lymphocytes % (A) 11 %; MCH 29.3 pg (25.0-35.0); MCHC 31.6 g/dL (31.0-37.0); MCV 92.6 fL (80.0-100.0); Mean Platelet Volume 8.8; Monocytes # (A) 0.4 k/uL (0-1.0); Monocytes % (A) 5 %; Neutrophils % (A) 82 %; RBC 3.33 m/uL (3.80-5.40); RDW 13.4 % (11.5-15.5); WBC 9.7 k/uL (3.8-10.6); WBC (Perox) 10.02
[2016-09-05 08:08] LABS: Anion Gap 13 mmol/L; Blood Urea Nitrogen 11 mg/dL (7-17); Calcium 8.3 mg/dL (8.4-10.2); Carbon Dioxide 22 mmol/L (22-30); Chloride 103 mmol/L (98-107); Glucose 215 mg/dL (74-99); Non-African American GFR(MDRD) >60 (>60 ml/min/1.73 sqM); Potassium 3.2 mmol/L (3.5-5.1); Sodium 138 mmol/L (137-145)
--- NOTE | 2016-09-05 08:43 | P.PN ---
Progress Note - Text Jacqui seems to be feeling much better today. She is still having some dry heaves but did tolerate half of a sandwich yesterday evening. She still has the left lower quadrant pain but did sleep very well last night. She is afebrile. She is currently on Unasyn and it seems to be helping her to clinically improve. Her vital signs are stable. Pelvic ultrasound did not contribute any further information. In fact the radiologist is still unclear whether this is her ovary or something else. It did not appear to go down in size. My impression is left adnexal mass, rule out ovarian malignancy versus inflammatory or infectious process. I advised her that I will start the referral process in my office today to refer her to SIGNAL ENGINEER oncology as an outpatient. As long as her clinical picture continues to improve, she may be discharged home and then follow up with me in the office for referral to [facility] oncology. I will bring her the information on the referral is soon as I have it available. Patient is agreeable to this plan.
[2016-09-05] MEDS: CLOPIDOGREL 75 MG TAB PO SCH (09:06)
[2016-09-05] MEDS: EDOXABAN TOSYLATE 60 MG TABLET PO SCH (09:06)
[2016-09-05] MEDS: PROPAFENONE 150 MG TAB PO SCH ×3 (09:07→20:54)
[2016-09-05] MEDS: METOPROLOL TARTRATE 25 MG TAB PO SCH ×2 (09:07→20:54)
[2016-09-05] MEDS: PANTOPRAZOLE 40 MG TABLET PO SCH (09:07)
[2016-09-05] MEDS: POTASSIUM CHLORIDE ER 20 MEQ TAB.ER PO SCH ×2 (10:15→15:55)
[2016-09-05 11:21] LABS: Glucose,Whole Blood 259 mg/dL (75-99)
[2016-09-05] MEDS: CALCIUM CARBONATE 500 MG CHEWABLE PO SCH (12:06)
[2016-09-05] MEDS: CHOLECALCIFEROL 1,000 UNIT TAB PO SCH (12:07)
[2016-09-05 16:48] LABS: Glucose,Whole Blood 235 mg/dL (75-99)
[2016-09-05 20:33] LABS: Glucose,Whole Blood 204 mg/dL (75-99)
[2016-09-05] MEDS: ATORVASTATIN 40 MG TAB PO SCH (20:54)
--- NOTE | 2016-09-05 23:44 | P.PN ---
Progress Note - Text DATE OF SERVICE: 09/05/2016 PRESENTING COMPLAINT: Abdominal pain nausea vomiting INTERVAL HISTORY: This 70-year-old patient who has a nonspecific mass in the left pelvic area, causing nausea and vomiting. Continues to have pain, much improved.. IV Zosyn continues. Able to tolerate some food does still have some dry heaving however infrequent. Patient feeling a little down today, gynecology came in and spoke with patient and feels the mass is a left adnexal mass rule out ovarian malignancy. They will start the referral process to [facility] and can follow-up after discharge with her. REVIEW OF SYSTEMS: Done for constitutional ,cardiovascular, GI, pulmonary with relevant findings as above. CURRENT MEDICATIONS Lipitor, Plavix, Zosyn IV, Dilaudid, overall Zofran, Protonix. PHYSICAL EXAM: VITAL SIGNS: Dr. Jones.1, pulse 71, respiratory rate 18, blood pressure 152/67, oxygen saturation 97% on room air. GENERAL APPEARANCE: . Lying in bed, not in distress. EYES: Pupils equal. Conjunctiva normal. NECK: JVD not raised. Mass not palpable. RESPIRATORY: Respiratory effort normal. Lungs clear to auscultation. CARDIOVASCULAR: First and second sounds normal. No edema. ABDOMEN: Soft. Tenderness noted to the left lower quadrant Liver and spleen not palpable. No tenderness. No mass palpable. PSYCHIATRY: Alert and oriented x3. Mood and affect normal. INVESTIGATIONS: Hemoglobin 9.7, potassium 3.2, Accu-Cheks noted. ASSESSMENT: Acute Urinary tract infection with possible cystitis that may explain the l constellation of symptoms. .Mass in the left lower quadrant pelvic area diagnosis unclear, could be malignant, inflammatory. Urinary tract infection from E. 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 Essential hypertension. Irritable bowel syndrome Psoriasis Coronary artery disease, with stent. PLAN: Gynecology feels that this is an adnexal mass versus ovarian malignancy rule out. They have started the referral process and patient should follow-up once discharged. Overall patient is feeling better antibiotics working, patient should discharge in the next 24 hours. We'll continue to follow closely. INTERVENTIONAL PHYSICIAN statement: Patient was seen and examined by nurse practitioner Marleny Encarnacion in all elements of the case discussed with attending Dr. Pacheco.
[2016-09-06] MEDS: PIPERACILLIN-TAZOBACTAM 3.375 GM in DEXTROSE/WATER 1 50ML.BAG IVPB SCH ×2 (00:05→07:53)
[2016-09-06 07:36] LABS: Glucose,Whole Blood 234 mg/dL (75-99)
[2016-09-06] MEDS: INSULIN LISPRO (humaLOG) 300 UNIT/3 ML VIAL SQ SCH ×2 (07:46→12:46)
[2016-09-06] MEDS: CHOLECALCIFEROL 1,000 UNIT TAB PO SCH (07:48)
[2016-09-06] MEDS: CALCIUM CARBONATE 500 MG CHEWABLE PO SCH (07:48)
[2016-09-06] MEDS: PROPAFENONE 150 MG TAB PO SCH (07:48)
[2016-09-06] MEDS: METOPROLOL TARTRATE 25 MG TAB PO SCH (07:48)
[2016-09-06] MEDS: PANTOPRAZOLE 40 MG TABLET PO SCH (07:49)
[2016-09-06] MEDS: CLOPIDOGREL 75 MG TAB PO SCH (07:49)
[2016-09-06] MEDS: EDOXABAN TOSYLATE 60 MG TABLET PO SCH (07:49)
[2016-09-06 07:58] VITALS: BP 148/67; PULSE 76; RESP 16; TEMP 98.1
[2016-09-06 08:31] LABS: Basophils % (A) 0 %; CHCM 31.4; Eosinophils # (A) 0.1 k/uL (0-0.7); Eosinophils % (A) 1 %; HCT 30.3 % (34.0-46.0); HDW 2.77; HGB 9.4 gm/dL (11.4-16.0); Hypochromasia Slight; Luc # (Auto) 0.24; Luc % (Auto) 3; Lymphocytes % (A) 11 %; MCHC 31.2 g/dL (31.0-37.0); Mean Platelet Volume 8.9; Monocytes # (A) 0.5 k/uL (0-1.0); Monocytes % (A) 6 %; Neutrophils # (A) 7.1 k/uL (1.3-7.7); Neutrophils % (A) 80 %; RBC 3.26 m/uL (3.80-5.40); RDW 13.5 % (11.5-15.5); WBC 8.9 k/uL (3.8-10.6); WBC (Perox) 9.31
[2016-09-06 08:35] LABS: Anion Gap 10 mmol/L; Blood Urea Nitrogen 9 mg/dL (7-17); Calcium 8.1 mg/dL (8.4-10.2); Carbon Dioxide 23 mmol/L (22-30); Chloride 104 mmol/L (98-107); Glucose 228 mg/dL (74-99); Non-African American GFR(MDRD) >60 (>60 ml/min/1.73 sqM); Potassium 4.1 mmol/L (3.5-5.1); Sodium 137 mmol/L (137-145)
[2016-09-06] MEDS: HYDROmorphone 1 MG/ML 1 ML SYRINGE IV PRN (08:35)
[2016-09-06] MEDS ORDERED: CEFUROXIME 250 MG TAB PO SCH (09:00)
--- NOTE | 2016-09-06 09:09 | P.PN ---
Progress Note - Text Jacqui is having some diarrhea this morning and thinks it is related to the milk that she put her cream of the wheat this morning. She denies any nausea or vomiting at this time. She still is having left lower abdominal pain that is relieved somewhat with her pain medication. Her vital signs are stable. She is afebrile. She is currently on her last dose of IV Zosyn. My office staff has arranged for an appointment with Dr. Ari Ansari, a CARPET TECHNICIAN oncologist at [facility] on September 09 at 11:30 AM. They have sent her out a packet of information and she will need to arrive approximately 1 hour before her appointment time. Hopefully she will be old be discharged soon and be able to keep this appointment. She thinks she will feel better when she is able to take her own medication at home for her IBS. I will follow-up with her in the office in approximately 2 weeks after her appointment with Dr. Ansari.
--- NOTE | 2016-09-06 10:44 | PN ---
DATE OF SERVICE: 09/05/2016 ATTENDING NOTE: This patient was seen and examined by me on 09/05/2016. I reviewed the note of my nurse practitioner, Ms. Encarnacion. Discussed, reviewed additional findings as below. This is a patient who presented with acute UTI and cystitis. Pelham to be cause of her nausea and vomiting. Left pelvic mass diagnosis still unclear. Getting antibiotics. Actually eating better. ROSTER CLERK is working on the process of referral to [facility]. On exam, afebrile. Blood pressure 150/67. ABDOMEN: Mild left lower quadrant tenderness. Patient overall looks better today, more cheerful though somewhat distraught to the fact that she may have to go down to [facility]. ASSESSMENT: 1. Acute urinary tract infection with cystitis, present on admission, explaining ( ) of symptoms. 2. Mass in the left lower quadrant, diagnosis which is unclear, could be malignant/inflammatory. 3. Urinary tract infection from Escherichia coli. PLAN: Continue the patient on antibiotics. Looking at referral to [facility]. Care was discussed with the patient.
[2016-09-06 12:10] LABS: Glucose,Whole Blood 294 mg/dL (75-99)
--- NOTE | 2016-09-06 17:17 | P.DS ---
Providers Date of admission: 09/01/16 20:49 Expected date of discharge: 09/06/16 Attending physician: Barney Pacheco Consults: 09/01/16 20:50 Consult Physician Routine Consulting Provider: Nelly Campbell Consult Reason/Comments: Abd pain, possible ovarian mass Do you want consulting provider notified?: Yes 09/01/16 20:51 Consult Physician Urgent Consulting Provider: Rain Woodward Consult Reason/Comments: abdominal pain, possible abscess Do you want consulting provider notified?: Yes 09/04/16 15:44 Consult Physician Routine Consulting Provider: Clara Razo Consult Reason/Comments: cardiac clearance for EGD Do you want consulting provider notified?: Yes Primary care physician: Perico White Hospital Course: FINAL DIAGNOSES: Acute Urinary tract infection with possible cystitis present on admission explain the constellation of symptoms. Mass in the left lower quadrant, diagnosis unclear, could be malignant, inflammatory Urinary tract infection from E. 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 Essential hypertension. Irritable bowel syndrome Psoriasis Coronary artery disease, with stent. HOSPTIAL COURSE: This is a 70-year-old patient who presented with nausea vomiting lower abdominal pain for about 2 weeks, nonspecific mass located in the left pelvic area. Urine was positive for infection and started on antibiotics. Gynecology and general surgery were consulted, IV fluids, antiemetics, provided. Clear liquid diet initiated. Computed tomography scan of the abdomen revealed abnormal density in the left hemipelvis, difficult to exclude ovarian mass, possible infection, defined abscess not identified. Transvaginal ultrasound revealed hypoechoic left adnexal abnormality corresponding to a portion of the CT finding. Nausea and vomiting persisted as did abdominal pain. Gynecology informed the patient that the left mass may likely be cancerous and she wanted the patient to be followed by [facility] in [place] as an outpatient. Continued to receive antibiotics, soon able to tolerate diet, nausea and vomiting remitted. Abdominal pain persisted, but not to the degree it was on admission. Today patient is sitting up at the bedside, ate hot cereal and was able to keep it down, moved her bowels, walking in the room and up and down the hallways. Patient would like to go home. Per gynecology, patient should go to [facility] on September 09 11:[address] Ari nAsari gynecology oncologist. Should also follow-up with Dr. Leena Springer in office 2 weeks after the [facility] appointment. PHYSICAL EXAM: CARDIOVASCULAR: First and second sounds noted, mild edema RESPIRATORY: Effort normal, lung sounds clear to auscultation GI: Left lower quadrant abdominal pain, positive bowel sounds, liver and spleen not palpable Patient was seen and examined by nurse practitioner Marleny Encarnacion in all elements of the case discussed with attending Dr. Pacheco DISOPSITION: Home to the care of her family. Pertinent Studies: Abdomen/pelvis CT: Interval development of abnormal density in the left preeti-pelvis, correlate with appropriate surgical history, prior intervention, difficult to exclude ovarian mass. Correlate for possible infection. Defined mass is not identified with certainty, biliary dilatation is a stable finding, left adrenal probable adenoma not significantly changed. Ultrasound of the pelvis/Transvaginal ultrasound: Hypoechoic left adnexal abnormality likely corresponds to the portion of the CT finding consider WEBSITE OPTIMIZATION STRATEGIST and surgical consult. Patient Condition at Discharge: Stable Plan - Discharge Summary New Discharge Prescriptions: New INSULIN LISPRO (humaLOG) [humaLOG (formulary)] 0 unit SQ ACHS vial Ciprofloxacin HCl [Cipro] 250 mg PO Q12HR #10 tablet Continue Nitroglycerin Sl Tabs [Nitrostat] 0.4 mg SL DIRECTED PRN PRN Reason: Chest Pain Clopidogrel [Plavix] 75 mg PO DAILY Propafenone [Rythmol] 150 mg PO TID Eluxadoline [Viberzi] 75 mg PO BID Omeprazole [PriLOSEC] 40 mg PO DAILY Cholecalciferol (Vitamin D3) [Vitamin D3] 2,000 unit PO DAILY Calcium Carbonate [Calcium] 600 mg PO DAILY Ondansetron Odt [Zofran ODT] 4 mg PO Q8HR PRN PRN Reason: Nausea Metoprolol Tartrate [Lopressor] 25 mg PO BID Atorvastatin [Lipitor] 40 mg PO HS rOPINIRole HCL [Requip] 1 mg PO TID Edoxaban Tosylate [Savaysa] 60 mg PO DAILY Changed Insulin Glargine [Lantus] 30 unit SQ HS #0 Discontinued Ciprofloxacin HCl [Cipro] 500 mg PO Q12HR Discharge Medication List Clopidogrel [Plavix] 75 mg PO DAILY 10/01/13 [History] Nitroglycerin Sl Tabs [Nitrostat] 0.4 mg SL DIRECTED PRN 10/01/13 [History] Atorvastatin [Lipitor] 40 mg PO HS 09/01/16 [History] Calcium Carbonate [Calcium] 600 mg PO DAILY 09/01/16 [History] Cholecalciferol (Vitamin D3) [Vitamin D3] 2,000 unit PO DAILY 09/01/16 [History] Edoxaban Tosylate [Savaysa] 60 mg PO DAILY 09/01/16 [History] Eluxadoline [Viberzi] 75 mg PO BID 09/01/16 [History] Metoprolol Tartrate [Lopressor] 25 mg PO BID 09/01/16 [History] Omeprazole [PriLOSEC] 40 mg PO DAILY 09/01/16 [History] Ondansetron Odt [Zofran ODT] 4 mg PO Q8HR PRN 09/01/16 [History] Propafenone [Rythmol] 150 mg PO TID 09/01/16 [History] rOPINIRole HCL [Requip] 1 mg PO TID 09/01/16 [History] Ciprofloxacin HCl [Cipro] 250 mg PO Q12HR #10 tablet 09/06/16 [Rx] INSULIN LISPRO (humaLOG) [humaLOG (formulary)] 0 unit SQ ACHS vial 09/06/16 [Rx ] Insulin Glargine [Lantus] 30 unit SQ HS #0 09/06/16 [Rx] Follow up Appointment(s)/Referral(s): Perico White MD [Primary Care Provider] - 09/08/16 11:20 am Leena Springer DO [Doctor of Osteopathic Medicine] - 09/26/16 1:30 pm Patient Instructions/Handouts: Ciprofloxacin (By mouth), Acute Abdominal Pain ( DC) Activity/Diet/Wound Care/Special Instructions: pt has script for a new glucosemeter - she wants to take it to gordon Ansari at [facility] on september 09 at 11:30 am Discharge Disposition: HOME SELF-CARE
--- NOTE | 2016-09-09 12:23 | DS ---
DATE OF ADMISSION: 09/01/2016 DATE OF DISCHARGE: 09/06/2016 ATTENDING NOTE: This patient was seen and examined by me on 09/07/2016. Reviewed the discharge summary of my nurse practitioner, Shashank. Discussed additional findings as below. This patient admitted with nausea, vomiting, abdominal pain, felt to be underlying UTI and cystitis. Cultures growing E. coli, to which she responded well. Patient found to have a left pelvic mass which could be incidental but there is some tenderness though this could also explain the cystitis. This could be malignant, hence, patient being sent down to [facility]. The patient symptoms are greatly improved at that time. Patient up in the hallway, tolerating a diet. On examination, mild left lower quadrant tenderness. On the day of discharge, care was discussed in detail with the patient. She will follow-up at [facility]. CONSULTATION: Dr. Leena Springer from [facility] . Dr. Woodward from general surgery; Dr. Fabian from Gastroenterology. The patient is work-up included an abdominal CT scan, transvaginal ultrasound and a pelvic ultrasound. Patient was afebrile at the time of discharge. Normal white count with hemoglobin of 9.4. DISCHARGE MEDICATIONS: 1. Plavix 75 mg a day. 2. Nitrostat 0.4 sublingually q.5 p.r.n. 3. Lipitor 40 mg q.h.s. 4. Calcium 600 mg p.o. daily. 5. Vitamin D3 2000 units p.o. daily. 6. Savaysa 60 mg p.o. daily. 7. ( ) 75 mg b.i.d. 8. Lopressor 25 mg b.i.d. 9. Prilosec 40 mg p.o. daily. 10. Zofran 4 mg p.o. q.8 p.r.n. 11. Rythmol 1 mg p.o. t.i.d. 12. Requip 1 mg p.o. t.i.d. 13. Cipro 250 mg q.12 for 10 tablets. 14. Humalog scale. 15. Lantus 30 units subcu q.h.s. Follow up with Dr. Fabian on 09/08/2016, follow-up with Dr. Leena Springer on 09/26/2016. Patient to follow up with He. Everything coordinated by Dr. Springer with Dr. Ari Ansari on September 09 at 11:30 a.m. Discharge planning more than 35 minutes.
== END 2016-09-06 13:35 | disposition home or self-care (01) | DRG 690 ==
LOC: EC 17:11 → 5MS5E 20:49
PROVIDERS: ADMIT Hospitalist; ATTEND Hospitalist
DX: N30.00 Acute cystitis without hematuria (principal); I25.110 Atherosclerotic heart disease of native coronary artery with unstable angina pectoris; E11.42 Type 2 diabetes mellitus with diabetic polyneuropathy; E86.0 Dehydration; B96.20 Unspecified Escherichia coli [E. coli] as the cause of diseases classified elsewhere; I10 Essential (primary) hypertension; I25.2 Old myocardial infarction; K58.0 Irritable bowel syndrome with diarrhea; L40.9 Psoriasis, unspecified; F41.9 Anxiety disorder, unspecified; G89.29 Other chronic pain; R01.1 Cardiac murmur, unspecified; R19.04 Left lower quadrant abdominal swelling, mass and lump; Z79.02 Long term (current) use of antithrombotics/antiplatelets; Z79.4 Long term (current) use of insulin; Z79.899 Other long term (current) drug therapy; Z85.41 Personal history of malignant neoplasm of cervix uteri; Z87.891 Personal history of nicotine dependence; Z95.5 Presence of coronary angioplasty implant and graft; Z88.1 Allergy status to other antibiotic agents; Z85.3 Personal history of malignant neoplasm of breast
CPT/HCPCS: 36415; 74177; 76830; 76856; 80048; 80053; 81001; 82150; 83036; 83605; 83690; 84132; 85025; 85610; 85730; 86304; 87040; 87077; 87086; 87186; 96365; 96366; 96368; 96375; 99285

== ENCOUNTER 2016-09-26 23:26 | Emergency (ER) | payer MEDICARE ==
[2016-09-26 23:41] VITALS: RESP 16
[2016-09-26 23:47] LABS: Glucose,Whole Blood 337 mg/dL (75-99)
[2016-09-26] MEDS ORDERED: DEXTROSE 5%-0.45% NACL 1,000 ML IV ONE ×2 (23:56→23:58)
[2016-09-27 00:06] LABS: Glucose,Whole Blood 384 mg/dL (75-99)
--- NOTE | 2016-09-27 00:09 | ED ---
General Adult HPI - General Source: patient, family, RN notes reviewed Mode of arrival: ambulatory Limitations: no limitations <Maycol Douglas - Last Filed: 09/27/16 01:06> <Josue Llanes - Last Filed: 09/27/16 02:34> - General Chief complaint: Recheck/Abnormal Lab/Rx Stated complaint: took too much insulin Time Seen by Provider: 09/26/16 23:50 - History of Present Illness Initial comments: chief complaint and history of present illness; this is a 71-year-old female here with her . The patient actually gave himself 30 units of Humalog instead of Lantus. she then ate several sweets. Came to the emergency room, current Accu-Chek 300. Patient had an IV started and observed. (Maycol Douglas) - Related Data Home Medications Medication Instructions Recorded Confirmed Clopidogrel [Plavix] 75 mg PO DAILY 10/01/13 09/01/16 Nitroglycerin Sl Tabs [Nitrostat] 0.4 mg SL DIRECTED PRN 10/01/13 09/01/16 Atorvastatin [Lipitor] 40 mg PO HS 09/01/16 09/01/16 Calcium Carbonate [Calcium] 600 mg PO DAILY 09/01/16 09/01/16 Cholecalciferol (Vitamin D3) 2,000 unit PO DAILY 09/01/16 09/01/16 [Vitamin D3] Edoxaban Tosylate [Savaysa] 60 mg PO DAILY 09/01/16 09/01/16 Eluxadoline [Viberzi] 75 mg PO BID 09/01/16 09/01/16 Metoprolol Tartrate [Lopressor] 25 mg PO BID 09/01/16 09/01/16 Omeprazole [PriLOSEC] 40 mg PO DAILY 09/01/16 09/01/16 Ondansetron Odt [Zofran ODT] 4 mg PO Q8HR PRN 09/01/16 09/01/16 Propafenone [Rythmol] 150 mg PO TID 09/01/16 09/01/16 rOPINIRole HCL [Requip] 1 mg PO TID 09/01/16 09/01/16 Previous Rx's Medication Instructions Recorded Ciprofloxacin HCl [Cipro] 250 mg PO Q12HR #10 tablet 09/06/16 INSULIN LISPRO (humaLOG) [humaLOG 0 unit SQ ACHS vial 09/06/16 (formulary)] Insulin Glargine [Lantus] 30 unit SQ HS #0 09/06/16 Allergies Allergy/AdvReac Type Severity Reaction Status Date / Time ceftriaxone sodium Allergy HIVES Verified 09/26/16 23:41 [From Rocephin] Review of Systems ROS Other: All systems not noted in ROS Statement are negative. <Maycol Douglas - Last Filed: 09/27/16 01:06> ROS Other: All systems not noted in ROS Statement are negative. <Josue Llanes - Last Filed: 09/27/16 02:34> ROS Statement: Those systems with pertinent positive or pertinent negative responses have been documented in the HPI. review of systems. Patient denies headache or visual acuity changes no chest pain or shortness of breath patient is nervous. Chronic lower abdominal pain cramping being worked up as a failed mesh from her previous surgery. her left leg is swollen from her hip to her toes. She had an ultrasound today which is reported to be negative for DVT. This is currently being worked up by your physician. All systems reviewed. Past medical problems significant for insulin-dependent diabetes mellitus, hypertension, and 2 previous MIs, and skin disorder. The patient's surgeries include tonsils, adenoids. He also had breast biopsies, cholecystectomy, heart catheterization before stents placed, or she'll hysterectomy, orthopedic surgery including pacemaker and bilateral breast biopsies. Family history significant for lung cancer, breast cancer thyroid cancer. She has ALLERGIES to Rocephin. quit smoking 40 years ago. Drinks alcohol socially. (Maycol Douglas) Past Medical History Past Medical History: Cancer, Diabetes Mellitus, Hypertension, Myocardial Infarction ([place]), Skin Disorder Additional Past Medical History / Comment(s): HEART MURMUR, IBS, RECENT UTI, PSORIASIS, HX SHINGLES, NEUROPATHY, CERVICAL AND BREAST CANCER-NO CHEMO OR RAD., Last Myocardial Infarction Date:: 2016 History of Any Multi-Drug Resistant Organisms: None Reported Past Surgical History: Adenoidectomy, Breast Surgery, Cholecystectomy, Heart Catheterization With Stent, Hysterectomy, Orthopedic Surgery, Pacemaker, Tonsillectomy Additional Past Surgical History / Comment(s): BILAT BREAST BIOPSY, LT PARTIAL MASTECTOMY-1976, LT KNEE SCOPE, REPAIR LT ROTATOR CUFF, LT CTR, BILAT CATARACT REMOVAL, COLONOSCOPY, EGD Past Anesthesia/Blood Transfusion Reactions: Previous Problems w/ Anesthesia, Motion Sickness, Postoperative Nausea & Vomiting (PONV) Date of Last Stent Placement:: 2011 Type of Cardiac Device: Permanent Pacemaker Device Placement Date:: 05/19/16 Past Psychological History: Anxiety Smoking Status: Former smoker Past Alcohol Use History: Occasional Past Drug Use History: None Reported - Past Family History Father Family Medical History: Cancer (Long) Mother Family Medical History: Cancer (Lungs) Brother(s) Family Medical History: Cancer (Lung and throat) Sister(s) Family Medical History: Cancer (Breast) <Maycol Douglas - Last Filed: 09/27/16 01:06> General Exam Limitations: no limitations <Maycol Douglas - Last Filed: 09/27/16 01:06> <Josue Llanes - Last Filed: 09/27/16 02:34> - General Exam Comments Initial Comments: General: The patient is awake and alert, mildly anxious but not in distress. Accu-Chek 300. Vital signs shows temperature 98.1 pulse 80 respiratory rate 16 pulse ox on percent room air blood pressure 140/78 Eye: Pupils are equal, round and reactive to light, extra-ocular movements are intact ; there is normal conjunctiva bilaterally. No signs of icterus. Ears, nose, mouth and throat: There are moist mucous membranes and no oral lesions. Neck: The neck is supple, there is no tenderness . Cardiovascular: There is a regular rate and rhythm. reported history of murmur not appreciated on this exam. Respiratory: Lungs are clear to auscultation, respirations are non-labored, breath sounds are equal. No wheezes, stridor, rales, or rhonchi. Gastrointestinal: tenderness with palpation to the left lower lateral abdomen. She reports this is ongoing currently being worked up for him mesh problem used during hernia repair. Back: no complaint of back pain. Musculoskeletal: left leg swollen and edematous. Negative for DVT study done earlier today. Neurological: neurologically grossly intact no focal or lateralizing findings. (Maycol Douglas) Medical Decision Making - Lab Data Result diagrams: 09/27/16 00:05 09/27/16 00:05 <Maycol Douglas - Last Filed: 09/27/16 01:06> - Lab Data Result diagrams: 09/27/16 00:05 09/27/16 00:05 <Josue Llanes - Last Filed: 09/27/16 02:34> - Medical Decision Making Medical decision making; white count 7.3 hemoglobin 10 hematocrit 32. Potassium 4.6 with a BUN 16 creatinine 0.9 and GFR greater than 60. Leukos initially feet 355. Several hours later it came down to 300. I discussed with our pharmacy department the half life of Humalog. As reported to be 1 hour. So at 4 hours the affect of the Humalog would be negligible. at approximately 3 AM the patient will been here 4 hours. Final Accu-Chek at that time. The patient is not receiving IV glucose at this time. (Maycol Douglas) - Lab Data Lab Results 09/26/16 09/27/16 09/27/16 Range/Units 23:34 00:04 00:05 WBC 7.3 (3.8-10.6) k/uL RBC 3.65 L (3.80-5.40) m/uL Hgb 10.3 L (11.4-16.0) gm/dL Hct 32.5 L (34.0-46.0) % MCV 89.2 (80.0-100.0) fL MCH 28.1 (25.0-35.0) pg MCHC 31.5 (31.0-37.0) g/dL RDW 13.7 (11.5-15.5) % Plt Count 307 (150-450) k/uL Neutrophils % 72 % Lymphocytes % 16 % Monocytes % 8 % Eosinophils % 1 % Basophils % 1 % Neutrophils # 5.3 (1.3-7.7) k/uL Lymphocytes # 1.2 (1.0-4.8) k/uL Monocytes # 0.6 (0-1.0) k/uL Eosinophils # 0.1 (0-0.7) k/uL Basophils # 0.1 (0-0.2) k/uL Hypochromasia Slight Sodium (137-145) mmol/L Potassium (3.5-5.1) mmol/L Chloride (98-107) mmol/L Carbon Dioxide (22-30) mmol/L Anion Gap mmol/L BUN (7-17) mg/dL Creatinine (0.52-1.04) mg/dL Est GFR (MDRD) Af Amer (>60 ml/min/1.73 sqM) Est GFR (MDRD) Non-Af (>60 ml/min/1.73 sqM) Glucose (74-99) mg/dL POC Glucose (mg/dL) 337 H 384 H (75-99) mg/dL POC Glu [employer] Zehrap, Viral Gilbert, Saba Calcium (8.4-10.2) mg/dL Total Bilirubin (0.2-1.3) mg/dL AST (14-36) U/L ALT (9-52) U/L Alkaline Phosphatase (38-126) U/L Total Protein (6.3-8.2) g/dL Albumin (3.5-5.0) g/dL 09/27/16 09/27/16 09/27/16 Range/Units 00:05 01:01 02:15 WBC (3.8-10.6) k/uL RBC (3.80-5.40) m/uL Hgb (11.4-16.0) gm/dL Hct (34.0-46.0) % MCV (80.0-100.0) fL MCH (25.0-35.0) pg MCHC (31.0-37.0) g/dL RDW (11.5-15.5) % Plt Count (150-450) k/uL Neutrophils % % Lymphocytes % % Monocytes % % Eosinophils % % Basophils % % Neutrophils # (1.3-7.7) k/uL Lymphocytes # (1.0-4.8) k/uL Monocytes # (0-1.0) k/uL Eosinophils # (0-0.7) k/uL Basophils # (0-0.2) k/uL Hypochromasia Sodium 135 L (137-145) mmol/L Potassium 4.6 (3.5-5.1) mmol/L Chloride 99 (98-107) mmol/L Carbon Dioxide 24 (22-30) mmol/L Anion Gap 12 mmol/L BUN 16 (7-17) mg/dL Creatinine 0.90 (0.52-1.04) mg/dL Est GFR (MDRD) Af Amer >60 (>60 ml/min/1.73 sqM) Est GFR (MDRD) Non-Af >60 (>60 ml/min/1.73 sqM) Glucose 355 H (74-99) mg/dL POC Glucose (mg/dL) 366 H 336 H (75-99) mg/dL POC Glu [employer] ID Gilbert, Saba Gilbert, Saba Calcium 9.4 (8.4-10.2) mg/dL Total Bilirubin 0.4 (0.2-1.3) mg/dL AST 16 (14-36) U/L ALT 25 (9-52) U/L Alkaline Phosphatase 102 (38-126) U/L Total Protein 7.1 (6.3-8.2) g/dL Albumin 3.6 (3.5-5.0) g/dL Disposition <Maycol Douglas - Last Filed: 09/27/16 01:06> <Josue Llanes - Last Filed: 09/27/16 02:34> Clinical Impression: Hypoglycemia Disposition: HOME SELF-CARE Condition: Good Instructions: Hypoglycemia in a Person with Diabetes (ED) Referrals: Perico White MD [Primary Care Provider] - 1-2 days
[2016-09-27 00:25] LABS: Basophils # (A) 0.1 k/uL (0-0.2); Basophils % (A) 1 %; CHCM 31.6; Eosinophils # (A) 0.1 k/uL (0-0.7); Eosinophils % (A) 1 %; HCT 32.5 % (34.0-46.0); HDW 2.72; HGB 10.3 gm/dL (11.4-16.0); Hypochromasia Slight; Luc # (Auto) 0.14; Luc % (Auto) 2; Lymphocytes # (A) 1.2 k/uL (1.0-4.8); Lymphocytes % (A) 16 %; MCH 28.1 pg (25.0-35.0); MCHC 31.5 g/dL (31.0-37.0); MCV 89.2 fL (80.0-100.0); Mean Platelet Volume 8.3; Monocytes # (A) 0.6 k/uL (0-1.0); Monocytes % (A) 8 %; Neutrophils # (A) 5.3 k/uL (1.3-7.7); Neutrophils % (A) 72 %; RBC 3.65 m/uL (3.80-5.40); RDW 13.7 % (11.5-15.5); WBC 7.3 k/uL (3.8-10.6); WBC (Perox) 7.65
[2016-09-27 00:36] LABS: ALT 25 U/L (9-52); AST 16 U/L (14-36); Alkaline Phosphatase 102 U/L (38-126); Anion Gap 12 mmol/L; Blood Urea Nitrogen 16 mg/dL (7-17); Calcium 9.4 mg/dL (8.4-10.2); Carbon Dioxide 24 mmol/L (22-30); Chloride 99 mmol/L (98-107); Glucose 355 mg/dL (74-99); Non-African American GFR(MDRD) >60 (>60 ml/min/1.73 sqM); Potassium 4.6 mmol/L (3.5-5.1); Sodium 135 mmol/L (137-145); Total Bilirubin 0.4 mg/dL (0.2-1.3); Total Protein 7.1 g/dL (6.3-8.2)
[2016-09-27 01:03] LABS: Glucose,Whole Blood 366 mg/dL (75-99)
[2016-09-27 02:16] LABS: Glucose,Whole Blood 336 mg/dL (75-99)
[2016-09-27 02:41] VITALS: BP 118/62; PULSE 69; TEMP 97.4
== END 2016-09-27 02:41 | disposition home or self-care (01) ==
LOC: EC 23:26
DX: E11.649 Type 2 diabetes mellitus with hypoglycemia without coma (principal); I10 Essential (primary) hypertension; I25.2 Old myocardial infarction; K58.9 Irritable bowel syndrome, unspecified; F41.9 Anxiety disorder, unspecified; Z87.891 Personal history of nicotine dependence; Z79.02 Long term (current) use of antithrombotics/antiplatelets; Z79.899 Other long term (current) drug therapy; Z88.1 Allergy status to other antibiotic agents; Z85.3 Personal history of malignant neoplasm of breast; Z95.5 Presence of coronary angioplasty implant and graft
CPT/HCPCS: 36415; 80053; 85025; 96360; 99284

== ENCOUNTER → 2016-09-26 | Outpatient (CLI) | payer MEDICARE ==
--- NOTE | 2016-09-26 15:21 | US ---
EXAMINATION TYPE: US venous doppler duplex LE LT DATE OF EXAM: 09/26/2016 2:57 PM COMPARISON: NONE CLINICAL HISTORY: 71-year-old female M79.89 LEFT LOWER EXTREMITY SWELLING. Left leg swelling x 1 jannet h, no h/o DVT, on thinners for a-fib SIDE PERFORMED: Left TECHNIQUE: The lower extremity deep venous system is examined utilizing real time linear array sonog maria teresa with graded compression, doppler sonography and color-flow sonography. FINDINGS: VESSELS IMAGED: External Iliac Vein (EIV) Common Femoral Vein Deep Femoral Vein Greater Saphenous Vein * Femoral Vein Popliteal Vein Small Saphenous Vein * Proximal Calf Veins Posterior tibial veins (* superficial vessels) Left Leg: Appears negative for DVT. We note that the patient is unable to tolerate compression along the lower superficial femoral vein. However, good color flow is seen. called office and spoke with nurse regarding impression @300 There is some subcutaneous soft tissue edema along the lower thigh and upper calf. IMPRESSION: 1. Assessment at the lower superficial femoral vein is limited as the patient was unable to tolerate compressions here. However, good color-flow is seen. No evidence for DVT within the left lower extrem ity.
== END ==
LOC: RADUSWWP 14:30
PROVIDERS: ATTEND Obstetrics & Gynecology
DX: M79.89 Other specified soft tissue disorders (principal)

== ENCOUNTER 2016-09-30 14:52 | Inpatient (IN) | payer MEDICARE ==
[2016-09-30] MEDS ORDERED: ONDANSETRON 4 MG/2 ML VIAL IVP STA ×2 (16:06→18:30)
[2016-09-30] MEDS ORDERED: ASPIRIN 81 MG CHEW PO STA (16:07)
[2016-09-30] MEDS: SODIUM CHLORIDE 0.9% 2,000 ML IV ONE ×2 (16:43→18:21)
[2016-09-30 16:49] LABS: Basophils % (A) 1 %; CH 28.1; CHCM 31.4; Eosinophils % (A) 0 %; HCT 31.3 % (34.0-46.0); HGB 10.1 gm/dL (11.4-16.0); Hypochromasia Slight; Luc # (Auto) 0.27; Luc % (Auto) 4; Lymphocytes # (A) 1.4 k/uL (1.0-4.8); Lymphocytes % (A) 21 %; MCHC 32.3 g/dL (31.0-37.0); MCV 89.7 fL (80.0-100.0); Mean Platelet Volume 8.7; Monocytes # (A) 0.8 k/uL (0-1.0); Monocytes % (A) 12 %; Neutrophils # (A) 4.1 k/uL (1.3-7.7); Neutrophils % (A) 63 %; RBC 3.49 m/uL (3.80-5.40); RDW 13.8 % (11.5-15.5); WBC 6.6 k/uL (3.8-10.6); WBC (Perox) 6.65
[2016-09-30 17:00] LABS: ALT 25 U/L (9-52); AST 20 U/L (14-36); Alkaline Phosphatase 90 U/L (38-126); Anion Gap 16 mmol/L; Blood Urea Nitrogen 22 mg/dL (7-17); Calcium 9.1 mg/dL (8.4-10.2); Carbon Dioxide 26 mmol/L (22-30); Chloride 98 mmol/L (98-107); Glucose 282 mg/dL (74-99); Non-African American GFR(MDRD) >60 (>60 ml/min/1.73 sqM); Potassium 3.4 mmol/L (3.5-5.1); Sodium 140 mmol/L (137-145); Total Bilirubin 0.5 mg/dL (0.2-1.3); Total Protein 6.8 g/dL (6.3-8.2)
--- NOTE | 2016-09-30 17:52 | ED ---
Nausea/Vomiting/Diarrhea HPI - General Chief complaint: Nausea/Vomiting/Diarrhea Stated complaint: vomiting/weakness Time Seen by Provider: 09/30/16 15:55 Source: patient Mode of arrival: wheelchair Limitations: no limitations - History of Present Illness Initial comments: Patient is a 71-year-old female with a significant medical history of atrial fibrillation, and MIs in the past who presents today with a chief complaint of nausea and vomiting. Patient states that this is been going on for 3 days. She cannot identify an inciting incident. She does not identify anything that makes her nausea and vomiting better or worse. Timing is constant. Patient states that she has been throwing up at least 4 times per day. She is unable to tolerate liquids, or solids. Patient denies chest pain, shortness of breath , and states that she had a dobutamine stress test 2 weeks ago which came back negative. MD complaint: nausea, vomiting Onset/Timin -: days(s) Description of Vomiting: watery, bilious Associated Abdominal Pain: Yes Location: LLQ Severity: mild Quality: cramping Improves with: none Worsens with: none Associated Symptoms: denies other symptoms - Related Data Home Medications Medication Instructions Recorded Confirmed Clopidogrel [Plavix] 75 mg PO DAILY 10/01/13 09/30/16 Nitroglycerin Sl Tabs [Nitrostat] 0.4 mg SL Q5M PRN 10/01/13 09/30/16 Atorvastatin [Lipitor] 40 mg PO HS 09/01/16 09/30/16 Calcium Carbonate [Calcium] 600 mg PO DAILY 09/01/16 09/30/16 Cholecalciferol (Vitamin D3) 2,000 unit PO DAILY 09/01/16 09/30/16 [Vitamin D3] Edoxaban Tosylate [Savaysa] 60 mg PO DAILY 09/01/16 09/30/16 Eluxadoline [Viberzi] 75 mg PO BID 09/01/16 09/30/16 Metoprolol Tartrate [Lopressor] 25 mg PO BID 09/01/16 09/30/16 Omeprazole [PriLOSEC] 40 mg PO DAILY 09/01/16 09/30/16 Ondansetron Odt [Zofran ODT] 4 mg PO Q8HR PRN 09/01/16 09/30/16 Propafenone [Rythmol] 150 mg PO TID 09/01/16 09/30/16 rOPINIRole HCL [Requip] 1 mg PO TID 09/01/16 09/30/16 Furosemide [Lasix] 20 mg PO DAILY 09/30/16 09/30/16 INSULIN LISPRO (humaLOG) [humaLOG See Protocol SQ ACHS 09/30/16 09/30/16 (formulary)] Potassium Chloride [K-Tab ER] 10 meq PO DAILY 09/30/16 09/30/16 Previous Rx's Medication Instructions Recorded Insulin Glargine [Lantus] 30 unit SQ HS #0 09/06/16 Allergies Allergy/AdvReac Type Severity Reaction Status Date / Time ceftriaxone sodium Allergy HIVES Verified 09/30/16 16:03 [From Jennifer] Review of Systems ROS Statement: Those systems with pertinent positive or pertinent negative responses have been documented in the HPI. Patient denies dizziness, visual changes, chest pain, shortness of breath, constipation, diarrhea. Patient does admit to lightheadedness upon standing, left upper quadrant abdominal pain, and mild dysuria ROS Other: All systems not noted in ROS Statement are negative. Past Medical History Past Medical History: Cancer, Diabetes Mellitus, Hypertension, Myocardial Infarction ([place]), Skin Disorder Additional Past Medical History / Comment(s): HEART MURMUR, IBS, RECENT UTI, PSORIASIS, HX SHINGLES, NEUROPATHY, CERVICAL AND BREAST CANCER-NO CHEMO OR RAD., Last Myocardial Infarction Date:: 2016 History of Any Multi-Drug Resistant Organisms: None Reported Past Surgical History: Adenoidectomy, Breast Surgery, Cholecystectomy, Heart Catheterization With Stent, Hysterectomy, Orthopedic Surgery, Pacemaker, Tonsillectomy Additional Past Surgical History / Comment(s): BILAT BREAST BIOPSY, LT PARTIAL MASTECTOMY-1976, LT KNEE SCOPE, REPAIR LT ROTATOR CUFF, LT CTR, BILAT CATARACT REMOVAL, COLONOSCOPY, EGD Past Anesthesia/Blood Transfusion Reactions: Previous Problems w/ Anesthesia, Motion Sickness, Postoperative Nausea & Vomiting (PONV) Date of Last Stent Placement:: 2011 Type of Cardiac Device: Permanent Pacemaker Device Placement Date:: 05/19/16 Past Psychological History: Anxiety Smoking Status: Former smoker Past Alcohol Use History: Occasional Past Drug Use History: None Reported - Past Family History Father Family Medical History: Cancer (Long) Mother Family Medical History: Cancer (Lungs) Brother(s) Family Medical History: Cancer (Lung and throat) Sister(s) Family Medical History: Cancer (Breast) General Exam Limitations: no limitations General appearance: alert, in no apparent distress Head exam: Present: atraumatic, normocephalic Eye exam: Present: normal appearance ENT exam: Present: mucous membranes moist Neck exam: Present: normal inspection Respiratory exam: Present: normal lung sounds bilaterally Cardiovascular Exam: Present: regular rate, normal rhythm GI/Abdominal exam: Present: soft, tenderness (Patient has mild tenderness in the left upper quadrant.) Rectal exam: Present: deferred Extremities exam: Present: other (Patient has unilateral left edema of the lower extremity. Patient states that this is from her hospitalization 3 weeks ago. Patient states that it is vastly improved since that time. Patient currently on anticoagulation.) Back exam: Present: normal inspection Neurological exam: Present: alert, oriented X3 Psychiatric exam: Present: normal affect, normal mood Skin exam: Present: warm, dry, intact Course Vital Signs 09/30/16 09/30/16 09/30/16 15:12 18:00 19:05 Temperature 97.4 F L Pulse Rate 78 149 H 132 H Respiratory 20 22 20 Rate Blood Pressure 140/91 156/79 150/86 O2 Sat by Pulse 99 98 98 Oximetry 09/30/16 09/30/16 19:28 20:09 Temperature 98.5 F Pulse Rate 158 H 147 H Respiratory 18 18 Rate Blood Pressure 122/69 171/96 O2 Sat by Pulse 95 100 Oximetry Medical Decision Making - Medical Decision Making Patient is 71-year-old female presents with a chief complaint nausea and vomiting 3 days. Patient states that she had a recent pharmacologic stress test 2 weeks ago that came back negative. We'll send basic lab work to rule out sources of infection. We'll send cardiac evaluation as well. EKG performed at 1735 shows atrial fibrillation with rapid ventricular response rate of 155 bpm. This is a change since initial evaluation. Patient will be started on Cardizem, 15 mg bolus followed by a Cardizem drip. Patient states she takes propafenone daily as she has a known history of atrial fibrillation. Patient has not been able to take her medications in 3 days however, this is likely what precipitated her A. fib today. 7:20 PM On reevaluation, patient is still tachycardic between 130 and 140 bpm. Patient states she is still nauseous despite 2 doses of Zofran. I spoke with Dr. Pacheco who accepts admission of this patient for A. fib RVR, and intractable nausea and vomiting. Currently, patient is on a Cardizem drip. Initial troponin is negative, admitting blood work is Second troponin, and repeat lactic acid will be drawn 30 minutes after second fluid bolus is finished infusing. Patient was updated on the care plan, she is agreeable. 8:40 PM On reevaluation, patient is tachycardic around 130-140 bpm. Patient was titrated to a Cardizem dose to 15 mg per hour. Patient states she is asymptomatic at this time, she is alert and oriented. Patient was transferred to the floor tachycardic, but otherwise in stable condition. Further management per admitting team. Repeat lactic acid, and troponin to be followed floor. - Lab Data Result diagrams: 09/30/16 16:40 09/30/16 16:40 Lab Results 09/30/16 09/30/16 09/30/16 Range/Units 16:40 16:40 16:40 WBC 6.6 (3.8-10.6) k/uL RBC 3.49 L (3.80-5.40) m/uL Hgb 10.1 L (11.4-16.0) gm/dL Hct 31.3 L (34.0-46.0) % MCV 89.7 (80.0-100.0) fL MCH 29.0 (25.0-35.0) pg MCHC 32.3 (31.0-37.0) g/dL RDW 13.8 (11.5-15.5) % Plt Count 379 (150-450) k/uL Neutrophils % 63 % Lymphocytes % 21 % Monocytes % 12 % Eosinophils % 0 % Basophils % 1 % Neutrophils # 4.1 (1.3-7.7) k/uL Lymphocytes # 1.4 (1.0-4.8) k/uL Monocytes # 0.8 (0-1.0) k/uL Eosinophils # 0.0 (0-0.7) k/uL Basophils # 0.0 (0-0.2) k/uL Hypochromasia Slight Sodium 140 (137-145) mmol/L Potassium 3.4 L (3.5-5.1) mmol/L Chloride 98 (98-107) mmol/L Carbon Dioxide 26 (22-30) mmol/L Anion Gap 16 mmol/L BUN 22 H (7-17) mg/dL Creatinine 0.89 (0.52-1.04) mg/dL Est GFR (MDRD) Af Amer >60 (>60 ml/min/1.73 sqM) Est GFR (MDRD) Non-Af >60 (>60 ml/min/1.73 sqM) Glucose 282 H (74-99) mg/dL Lactic Ac Sepsis Rflx Plasma Lactic Acid Mitch 2.1 H* (0.7-2.0) mmol/L Calcium 9.1 (8.4-10.2) mg/dL Total Bilirubin 0.5 (0.2-1.3) mg/dL AST 20 (14-36) U/L ALT 25 (9-52) U/L Alkaline Phosphatase 90 (38-126) U/L Troponin I (0.000-0.034) ng/mL Total Protein 6.8 (6.3-8.2) g/dL Albumin 3.2 L (3.5-5.0) g/dL Lipase 62 (23-300) U/L 09/30/16 09/30/16 Range/Units 16:40 17:03 WBC (3.8-10.6) k/uL RBC (3.80-5.40) m/uL Hgb (11.4-16.0) gm/dL Hct (34.0-46.0) % MCV (80.0-100.0) fL MCH (25.0-35.0) pg MCHC (31.0-37.0) g/dL RDW (11.5-15.5) % Plt Count (150-450) k/uL Neutrophils % % Lymphocytes % % Monocytes % % Eosinophils % % Basophils % % Neutrophils # (1.3-7.7) k/uL Lymphocytes # (1.0-4.8) k/uL Monocytes # (0-1.0) k/uL Eosinophils # (0-0.7) k/uL Basophils # (0-0.2) k/uL Hypochromasia Sodium (137-145) mmol/L Potassium (3.5-5.1) mmol/L Chloride (98-107) mmol/L Carbon Dioxide (22-30) mmol/L Anion Gap mmol/L BUN (7-17) mg/dL Creatinine (0.52-1.04) mg/dL Est GFR (MDRD) Af Amer (>60 ml/min/1.73 sqM) Est GFR (MDRD) Non-Af (>60 ml/min/1.73 sqM) Glucose (74-99) mg/dL Lactic Ac Sepsis Rflx Y Plasma Lactic Acid Mitch (0.7-2.0) mmol/L Calcium (8.4-10.2) mg/dL Total Bilirubin (0.2-1.3) mg/dL AST (14-36) U/L ALT (9-52) U/L Alkaline Phosphatase (38-126) U/L Troponin I 0.019 (0.000-0.034) ng/mL Total Protein (6.3-8.2) g/dL Albumin (3.5-5.0) g/dL Lipase (23-300) U/L Disposition Clinical Impression: Intractable nausea and vomiting, Atrial fibrillation with RVR Disposition: ADMITTED IP TO THIS [facility] Condition: Fair Decision to Admit Reason: Admit from EC
[2016-09-30] MEDS: DILTIAZEM 125 MG in SODIUM CHLORIDE 0.9% 100 ML IV SCH ×4 (18:11→20:26)
[2016-09-30] MEDS ORDERED: MORPHINE SULFATE 10 MG/ML SYRINGE IM STA (18:32)
[2016-09-30] MEDS ORDERED: DILTIAZEM 5 MG/ML 25 ML VIAL IV STA (18:56)
[2016-09-30] MEDS ORDERED: NALOXONE 0.4 MG/ML 1 ML VIAL IV PRN (19:23)
[2016-09-30] MEDS ORDERED: ONDANSETRON 4 MG/2 ML VIAL IVP PRN (19:23)
--- NOTE | 2016-09-30 20:08 | XR ---
EXAMINATION TYPE: XR chest 2V DATE OF EXAM: 09/30/2016 COMPARISON: 10/28/2011 HISTORY: Pain TECHNIQUE: Frontal and lateral views of the chest are obtained. FINDINGS: Cardiac AV pacemaker noted. There is no focal air space opacity, pleural effusion, or pneu mothorax seen. The cardiac silhouette size is within normal limits. The osseous structures are int act. IMPRESSION: No acute cardiopulmonary process.
--- NOTE | 2016-09-30 20:14 | XR ---
EXAMINATION TYPE: XR abdomen 2V DATE OF EXAM: 09/30/2016 COMPARISON: NONE HISTORY: Pain and vomiting TECHNIQUE: Upright and supine FINDINGS: The bowel gas pattern is normal. No abnormal gas collections. Soft tissues and skeletal str uctures are unremarkable. IMPRESSION: No acute radiographic process.
[2016-09-30 21:27] LABS: Glucose,Whole Blood 226 mg/dL (75-99)
--- NOTE | 2016-09-30 21:31 | P.HPIM ---
History of Present Illness H&P Date: 09/30/16 Chief Complaint: Abdominal pain and nausea This is a very pleasant 71-year-old patient who was recently in hospital was admitted by my colleague Dr. Hernandez. Patient then was complaining of left lower quadrant pain and nausea and vomiting. She was last admission felt to have cystitis and UTI and her symptoms did quite improve. With antibiotics. Patient did have a vaginal ultrasound computed tomography scan was found were pelvic mass. Patient was seen by Dr. Springer from [facility] who referred the patient to Dr. Ari Ansari at [facility] oncologist. The per patient it is his impression that this is not malignant mass. He did refer her to Dr. Engel out of [place] videocolonoscope he only follows small polyp and also did a repeat CAT scans that came back to be negative.. Patient continues to persistent nausea not able to keep any liquids down and has lost about 10 pounds of weight, and continuous left lower quadrant pain. Patient did have a inguinal hernia repair in [place] and has a mesh there. Patient denies any fever. No diarrhea no current urinary symptoms. Does feel tired and weak and rundown. Also in the ER patient noted to be in atrial fibrillation with rapid ventricular rate. Started on Cardizem drip.. Significant past history: Coronary artery disease with stent, psoriasis, irritable bowel syndrome, essential hypertension, as well as type II chronically on insulin with peripheral neuropathy, Review of Systems GEN.: [ Diet and weight loss] EYES: [None] HEENT: [None] NECK: [None] RESPIRATORY: [None] CARDIOVASCULAR: [Rapid heart rate] GASTROINTESTINAL: [As above] GENITOURINARY: [None] MUSCULOSKELETAL: [None] LYMPHATICS: [None] HEMATOLOGICAL: [None] PSYCHIATRY: [Anxious] NEUROLOGICAL: [None] Past Medical History Past Medical History: Cancer, Diabetes Mellitus, Hypertension, Myocardial Infarction ([place]), Skin Disorder Additional Past Medical History / Comment(s): HEART MURMUR, IBS, RECENT UTI, PSORIASIS, HX SHINGLES, NEUROPATHY, CERVICAL AND BREAST CANCER-NO CHEMO OR RAD., Last Myocardial Infarction Date:: 2016 History of Any Multi-Drug Resistant Organisms: None Reported Past Surgical History: Adenoidectomy, Breast Surgery, Cholecystectomy, Heart Catheterization With Stent, Hysterectomy, Orthopedic Surgery, Pacemaker, Tonsillectomy Additional Past Surgical History / Comment(s): BILAT BREAST BIOPSY, LT PARTIAL MASTECTOMY-1977, LT KNEE SCOPE, REPAIR LT ROTATOR CUFF, LT CTR, BILAT CATARACT REMOVAL, COLONOSCOPY, EGD Past Anesthesia/Blood Transfusion Reactions: Previous Problems w/ Anesthesia, Motion Sickness, Postoperative Nausea & Vomiting (PONV) Date of Last Stent Placement:: 2011 Type of Cardiac Device: Permanent Pacemaker Device Placement Date:: 05/19/16 Past Psychological History: Anxiety Smoking Status: Former smoker Past Alcohol Use History: Occasional Past Drug Use History: None Reported - Past Family History Father Family Medical History: Cancer (Long) Mother Family Medical History: Cancer (Lungs) Brother(s) Family Medical History: Cancer (Lung and throat) Sister(s) Family Medical History: Cancer (Breast) Medications and Allergies Home Medications Medication Instructions Recorded Confirmed Type Clopidogrel [Plavix] 75 mg PO DAILY 10/01/13 09/30/16 History Nitroglycerin Sl Tabs [Nitrostat] 0.4 mg SL Q5M PRN 10/01/13 09/30/16 History Atorvastatin [Lipitor] 40 mg PO HS 09/01/16 09/30/16 History Calcium Carbonate [Calcium] 600 mg PO DAILY 09/01/16 09/30/16 History Cholecalciferol (Vitamin D3) 2,000 unit PO DAILY 09/01/16 09/30/16 History [Vitamin D3] Edoxaban Tosylate [Savaysa] 60 mg PO DAILY 09/01/16 09/30/16 History Eluxadoline [Viberzi] 75 mg PO BID 09/01/16 09/30/16 History Metoprolol Tartrate [Lopressor] 25 mg PO BID 09/01/16 09/30/16 History Omeprazole [PriLOSEC] 40 mg PO DAILY 09/01/16 09/30/16 History Ondansetron Odt [Zofran ODT] 4 mg PO Q8HR PRN 09/01/16 09/30/16 History Propafenone [Rythmol] 150 mg PO TID 09/01/16 09/30/16 History rOPINIRole HCL [Requip] 1 mg PO TID 09/01/16 09/30/16 History Furosemide [Lasix] 20 mg PO DAILY 09/30/16 09/30/16 History INSULIN LISPRO (humaLOG) [humaLOG See Protocol SQ ACHS 07/14/17 07/14/17 History (formulary)] Potassium Chloride [K-Tab ER] 10 meq PO DAILY 09/30/16 09/30/16 History Allergies Allergy/AdvReac Type Severity Reaction Status Date / Time ceftriaxone sodium Allergy HIVES Verified 09/30/16 16:03 [From [facility]] Physical Exam VITAL SIGNS: 97.4, 150, 22, 156/79, 98% room air GENERAL: Average built, sitting up, tired appearing. EYES: Pupils equal. Conjunctiva normal. HEENT: External appearance of nose and ears normal, oral cavity dry mucous membrane. NECK: JVD not raised; masses not palpable. HEART: First and second heart sounds are normal; no edema. LUNGS: Respiratory rate normal; clear to auscultation. ABDOMEN: Soft, left lower quadrant tenderness mild, liver spleen not palpable, no masses palpable. LYMPHATICS: No lymph nodes palpable in the axilla and neck. PSYCH: Alert and oriented x3; mood and affect anxious appearingl. NEUROLOGICAL: Cranial nerves grossly intact; no facial asymmetry, power and sensation grossly intact. Results CBC & Chem 7: 09/30/16 16:40 09/30/16 16:40 Labs: Investigations: White count 6.6, hemoglobin 10.1, potassium 3.4, BNP 22, creatinine 0.89, glucose 22 Assessment and Plan Plan: Assessment: -This is a patient was having significant nausea for quite some time and also some lower abdominal pain. Related to a nonspecific mass has been worked up by Dr. Ansari at [facility], who doesn't think this is cancer. Patient has irritable bowel syndrome as could be manifestation of that. Also given that patient's diabetes patient persistent nausea could be a part of gastroparesis. -New-onset atrial fibrillation with rapid ventricular rate, present on admission Nonspecific mass in the pelvic area Diabetes mellitus type 2 chronically on insulin with peripheral neuropathy. Essential hypertension. Irritable bowel syndrome Psoriasis Coronary artery disease, with stent. Plan: Care was discussed in detail with the patient . Renal consultation to Gen. surgery/GI/[facility]. We'll start the patient on scheduled Reglan. Patient also noted Cardizem drip and cardiology is consulted.
[2016-09-30] MEDS: ATORVASTATIN 40 MG TAB PO SCH (22:04)
[2016-09-30] MEDS: INSULIN GLARGINE 100 UNIT/ML 10 ML VIAL SQ SCH (22:04)
[2016-09-30] MEDS: METOPROLOL TARTRATE 25 MG TAB PO SCH (22:05)
[2016-09-30] MEDS: INSULIN LISPRO (humaLOG) 300 UNIT/3 ML VIAL SQ SCH (22:05)
[2016-09-30] MEDS: PROPAFENONE 150 MG TAB PO SCH (22:06)
[2016-09-30] MEDS: LACTATED RINGERS 1,000 ML IV SCH (22:13)
[2016-09-30] MEDS: MORPHINE SULFATE 4 MG/ML SYRINGE IV PRN (23:16)
[2016-09-30] MEDS: METOCLOPRAMIDE 5 MG/ML 2 ML VIAL IVP SCH (23:16)
[2016-10-01] MEDS: MORPHINE SULFATE 4 MG/ML SYRINGE IV PRN ×2 (03:21→08:22)
[2016-10-01 03:40] LABS: Amorphous Sediment,Urine Occasional /hpf; Appearance,Urine Turbid (Clear); Bilirubin,Urine Negative (Negative); Glucose,Urine (UA) 2+ (Negative); Leukocyte Esterase,Urine Negative (Negative); Mucus,Urine Occasional /hpf; Nitrite,Urine Negative (Negative); Particle Count 19557; Protein,Urine 3+ (Negative); Specific Gravity,Urine 1.025 (1.001-1.035); UA Billing (MACRO vs. MICRO) MICRO
[2016-10-01 03:42] LABS: Ketones,Urine 2+ (Negative)
[2016-10-01] MEDS: DILTIAZEM 125 MG in SODIUM CHLORIDE 0.9% 100 ML IV SCH (04:11)
[2016-10-01] MEDS: LACTATED RINGERS 1,000 ML IV SCH ×4 (06:20→23:16)
[2016-10-01 06:25] LABS: Glucose,Whole Blood 179 mg/dL (75-99)
[2016-10-01] MEDS: METOCLOPRAMIDE 5 MG/ML 2 ML VIAL IVP SCH ×4 (06:46→23:23)
[2016-10-01] MEDS: INSULIN LISPRO (humaLOG) 300 UNIT/3 ML VIAL SQ SCH ×4 (06:50→20:59)
[2016-10-01] MEDS: PANTOPRAZOLE 40 MG TABLET PO SCH (06:52)
[2016-10-01 07:18] LABS: CH 27.6; CHCM 30.6; HCT 26.1 % (34.0-46.0); HDW 2.75; Hypochromasia Moderate; MCH 28.8 pg (25.0-35.0); MCHC 31.8 g/dL (31.0-37.0); MCV 90.7 fL (80.0-100.0); Mean Platelet Volume 8.2; RBC 2.88 m/uL (3.80-5.40); RDW 13.7 % (11.5-15.5); WBC 6.2 k/uL (3.8-10.6); WBC (Perox) 6.79
[2016-10-01 07:22] LABS: HGB 8.3 gm/dL (11.4-16.0)
[2016-10-01] MEDS ORDERED: INSULIN LISPRO (humaLOG) 300 UNIT/3 ML VIAL SQ SCH (07:30)
[2016-10-01 07:33] LABS: Anion Gap 9 mmol/L; Blood Urea Nitrogen 21 mg/dL (7-17); Calcium 8.3 mg/dL (8.4-10.2); Carbon Dioxide 27 mmol/L (22-30); Chloride 104 mmol/L (98-107); Glucose 175 mg/dL (74-99); Non-African American GFR(MDRD) >60 (>60 ml/min/1.73 sqM); Potassium 3.3 mmol/L (3.5-5.1); Sodium 140 mmol/L (137-145)
[2016-10-01 08:07] LABS: Add Differential Manual Differential
[2016-10-01 08:10] LABS: Nucleated Red Blood Cells 0 /100 WBC (0-0); Total Cells Counted 100
[2016-10-01 08:11] LABS: Manual Review Performed
[2016-10-01] MEDS: CLOPIDOGREL 75 MG TAB PO SCH (08:21)
[2016-10-01] MEDS: POTASSIUM CHLORIDE ER 10 MEQ TAB.ER.PRT PO SCH (08:21)
[2016-10-01] MEDS: METOPROLOL TARTRATE 25 MG TAB PO SCH ×2 (08:21→20:58)
[2016-10-01] MEDS: PROPAFENONE 150 MG TAB PO SCH ×3 (08:22→20:58)
[2016-10-01] MEDS ORDERED: POTASSIUM CHLORIDE ER 20 MEQ TAB.ER PO STA (08:34)
[2016-10-01] MEDS ORDERED: CHOLECALCIFEROL 1,000 UNIT TAB PO SCH (09:00)
[2016-10-01] MEDS ORDERED: CALCIUM CARB-VIT D 500MG-200UN 1 EACH TAB PO SCH (09:00)
[2016-10-01] MEDS ORDERED: ENOXAPARIN 40 MG/0.4 ML SYRINGE SQ SCH (09:00)
--- NOTE | 2016-10-01 10:17 | P.GSCN ---
History of Present Illness Consult date: 10/01/16 Reason for Consult: Abdominal pain History of present illness: The patient is a 71-year-old white female who presented to the emergency room with a complaint of left lower quadrant abdominal discomfort and nausea and vomiting. She has a significant past medical history which includes the following. In approximately December she was noted to have a left groin hernia and was admitted to the hospital for potential hernia repair. However at that time she was noted to be hypertensive and her surgery was canceled. She was worked up by cardiology 2 stents were placed and she subsequently went to [place]. In [place] she underwent a laparoscopic left inguinal hernia repair. Following this she had an myocardial infarction in 2 additional cardiac stents were placed. Since approximately July the patient has had persistent abdominal discomfort and nausea and vomiting. On September 01 a CAT scan was performed which revealed a questionable mass in the area of the pelvis and there was concern that this may represent ovarian cancer. She was seen at[facility] by [facility] [employer] oncologist who felt that this was related to the hernia repair and the mesh rather than an ovarian cancer. She was also seen by a flight radio operator Dr. Engel at [facility] and underwent a colonoscopy and a repeat CAT scan. The repeat CAT scan noted that the area of swelling was smaller. She subsequently presented on September 29 to the emergency room at [facility] again with a complaint of nausea and vomiting. She denies diarrhea or constipation her last bowel movement was 2 days ago. She has had chills and states that she did have a fever although she did not have a recorded temperature. Past surgical history: 1. Breast cancer 2. Hysterectomy her ovaries were not removed this was for cervical cancer 3. Cholecystectomy 4. Knee and shoulder surgery 5. Laparoscopic left inguinal hernia repair performed in [place] Past medical history: 1. [place] 2. Diabetes. Patient is had one 3 children to her adopted social history: Patient does not smoke alcohol: Occasional Marijuana: Negative Review of systems: HEENT: Negative Lungs: Negative Heart: CO 2 for cardiac stents GI: Irritable bowel syndrome and as above : Urinary tract infections Review of Systems - Constitutional Reports as per HPI, Reports chills, Reports fever - Breasts Breasts Comment(s): History of breast cancer and lumpectomy - Cardiovascular Cardiovascular Comment(s): [place] 2 Cardiac stents 4 Pacemaker Reports as per HPI - Respiratory Reports as per HPI - Gastrointestinal Reports as per HPI - Genitourinary Genitourinary: Reports as per HPI Past Medical History Past Medical History: Cancer, Diabetes Mellitus, Hypertension, Myocardial Infarction ([place]), Skin Disorder Additional Past Medical History / Comment(s): HEART MURMUR, IBS, RECENT UTI, PSORIASIS, HX SHINGLES, NEUROPATHY, CERVICAL AND BREAST CANCER-NO CHEMO OR RAD., Last Myocardial Infarction Date:: 2016 History of Any Multi-Drug Resistant Organisms: None Reported Past Surgical History: Breast Surgery, Cholecystectomy, Heart Catheterization With Stent, Hysterectomy, Orthopedic Surgery, Pacemaker, Tonsillectomy Additional Past Surgical History / Comment(s): BILAT BREAST BIOPSY, LT PARTIAL MASTECTOMY-1976, LT KNEE SCOPE, REPAIR LT ROTATOR CUFF, LT CTR, BILAT CATARACT REMOVAL, COLONOSCOPY, EGD Past Anesthesia/Blood Transfusion Reactions: Previous Problems w/ Anesthesia, Motion Sickness, Postoperative Nausea & Vomiting (PONV) Date of Last Stent Placement:: 2016 Type of Cardiac Device: Permanent Pacemaker Device Placement Date:: 05/19/16 Past Psychological History: Anxiety Smoking Status: Former smoker - Past Family History Father Family Medical History: Cancer Mother Family Medical History: Cancer Brother(s) Family Medical History: Cancer Sister(s) Family Medical History: Cancer Medications and Allergies Home Medications Medication Instructions Recorded Confirmed Type Clopidogrel [Plavix] 75 mg PO DAILY 10/01/13 09/30/16 History Nitroglycerin Sl Tabs [Nitrostat] 0.4 mg SL Q5M PRN 10/01/13 09/30/16 History Atorvastatin [Lipitor] 40 mg PO HS 09/01/16 09/30/16 History Calcium Carbonate [Calcium] 600 mg PO DAILY 09/01/16 09/30/16 History Cholecalciferol (Vitamin D3) 2,000 unit PO DAILY 09/01/16 09/30/16 History [Vitamin D3] Edoxaban Tosylate [Savaysa] 60 mg PO DAILY 09/01/16 09/30/16 History Eluxadoline [Viberzi] 75 mg PO DAILY 09/01/16 09/30/16 History Metoprolol Tartrate [Lopressor] 25 mg PO BID 09/01/16 09/30/16 History Omeprazole [PriLOSEC] 40 mg PO DAILY 09/01/16 09/30/16 History Ondansetron Odt [Zofran ODT] 4 mg PO Q8HR PRN 09/01/16 09/30/16 History Propafenone [Rythmol] 150 mg PO TID 09/01/16 09/30/16 History rOPINIRole HCL [Requip] 1 mg PO TID 09/01/16 09/30/16 History Furosemide [Lasix] 20 mg PO DAILY 09/30/16 09/30/16 History INSULIN LISPRO (humaLOG) [humaLOG See Protocol SQ ACHS 09/30/16 09/30/16 History (formulary)] Potassium Chloride [K-Tab ER] 10 meq PO DAILY 09/30/16 09/30/16 History Allergies Allergy/AdvReac Type Severity Reaction Status Date / Time ceftriaxone sodium Allergy HIVES Verified 09/30/16 16:03 [From [facility]] Surgical - Exam Vital Signs Temp Pulse Resp BP Pulse Ox 97.4 F L 78 20 140/91 99 09/30/16 15:12 09/30/16 15:12 09/30/16 15:12 09/30/16 15:12 09/30/16 15:12 - General obese - Eyes normal ocular movement - ENT normal pinna, normal nares, no hearing loss - Neck no masses, trachea midline, no lymphadectomy, no venous distension - Respiratory normal expansion, normal respiratory effort, clear to auscultation - Cardiovascular Irregular heart rate Heart Sounds: normal: S1, S2 - Abdomen Mild tenderness greatest left lower quadrant with some mild fullness No guarding or rebound Well-healed scars from prior surgery No evidence of recurrent hernias no evidence of right groin hernia Abdomen: soft - Integumentary no rash, no abnormal pigmentation - Psychiatric oriented to time, oriented to person, oriented to place, speech is normal Results - Labs 10/01/16 06:41 10/01/16 06:41 Abnormal Lab Results - Last 24 Hours (Table) 09/30/16 09/30/16 09/30/16 Range/Units 16:40 16:40 16:40 RBC 3.49 L (3.80-5.40) m/uL Hgb 10.1 L (11.4-16.0) gm/dL Hct 31.3 L (34.0-46.0) % Monocytes # (Manual) (0-1.0) k/uL Potassium 3.4 L (3.5-5.1) mmol/L BUN 22 H (7-17) mg/dL Glucose 282 H (74-99) mg/dL POC Glucose (mg/dL) (75-99) mg/dL Plasma Lactic Acid Mitch 2.1 H* (0.7-2.0) mmol/L Calcium (8.4-10.2) mg/dL Albumin 3.2 L (3.5-5.0) g/dL Urine Appearance (Clear) Urine Protein (Negative) Urine Glucose (UA) (Negative) Urine Ketones (Negative) Amorphous Sediment (None) /hpf Urine Mucus (None) /hpf Urine Yeast (Budding) (None) /hpf 09/30/16 10/01/16 10/01/16 Range/Units 21:12 03:30 06:20 RBC (3.80-5.40) m/uL Hgb (11.4-16.0) gm/dL Hct (34.0-46.0) % Monocytes # (Manual) (0-1.0) k/uL Potassium (3.5-5.1) mmol/L BUN (7-17) mg/dL Glucose (74-99) mg/dL POC Glucose (mg/dL) 226 H 179 H (75-99) mg/dL Plasma Lactic Acid Mitch (0.7-2.0) mmol/L Calcium (8.4-10.2) mg/dL Albumin (3.5-5.0) g/dL Urine Appearance Turbid H (Clear) Urine Protein 3+ H (Negative) Urine Glucose (UA) 2+ H (Negative) Urine Ketones 2+ H (Negative) Amorphous Sediment Occasional H (None) /hpf Urine Mucus Occasional H (None) /hpf Urine Yeast (Budding) Many H (None) /hpf 10/01/16 10/01/16 Range/Units 06:41 06:41 RBC 2.88 L (3.80-5.40) m/uL Hgb 8.3 L D (11.4-16.0) gm/dL Hct 26.1 L (34.0-46.0) % Monocytes # (Manual) 1.3 H (0-1.0) k/uL Potassium 3.3 L (3.5-5.1) mmol/L BUN 21 H (7-17) mg/dL Glucose 175 H (74-99) mg/dL POC Glucose (mg/dL) (75-99) mg/dL Plasma Lactic Acid Mitch (0.7-2.0) mmol/L Calcium 8.3 L (8.4-10.2) mg/dL Albumin (3.5-5.0) g/dL Urine Appearance (Clear) Urine Protein (Negative) Urine Glucose (UA) (Negative) Urine Ketones (Negative) Amorphous Sediment (None) /hpf Urine Mucus (None) /hpf Urine Yeast (Budding) (None) /hpf Diabetes panel 09/30/16 10/01/16 Range/Units 16:40 06:41 Sodium 140 140 (137-145) mmol/L Potassium 3.4 L 3.3 L (3.5-5.1) mmol/L Chloride 98 104 (98-107) mmol/L Carbon Dioxide 26 27 (22-30) mmol/L BUN 22 H 21 H (7-17) mg/dL Creatinine 0.89 0.90 (0.52-1.04) mg/dL Glucose 282 H 175 H (74-99) mg/dL Calcium 9.1 8.3 L (8.4-10.2) mg/dL AST 20 (14-36) U/L ALT 25 (9-52) U/L Alkaline Phosphatase 90 (38-126) U/L Total Protein 6.8 (6.3-8.2) g/dL Albumin 3.2 L (3.5-5.0) g/dL Calcium panel 09/30/16 10/01/16 Range/Units 16:40 06:41 Calcium 9.1 8.3 L (8.4-10.2) mg/dL Albumin 3.2 L (3.5-5.0) g/dL Pituitary panel 09/30/16 10/01/16 Range/Units 16:40 06:41 Sodium 140 140 (137-145) mmol/L Potassium 3.4 L 3.3 L (3.5-5.1) mmol/L Chloride 98 104 (98-107) mmol/L Carbon Dioxide 26 27 (22-30) mmol/L BUN 22 H 21 H (7-17) mg/dL Creatinine 0.89 0.90 (0.52-1.04) mg/dL Glucose 282 H 175 H (74-99) mg/dL Calcium 9.1 8.3 L (8.4-10.2) mg/dL Adrenal panel 09/30/16 10/01/16 Range/Units 16:40 06:41 Sodium 140 140 (137-145) mmol/L Potassium 3.4 L 3.3 L (3.5-5.1) mmol/L Chloride 98 104 (98-107) mmol/L Carbon Dioxide 26 27 (22-30) mmol/L BUN 22 H 21 H (7-17) mg/dL Creatinine 0.89 0.90 (0.52-1.04) mg/dL Glucose 282 H 175 H (74-99) mg/dL Calcium 9.1 8.3 L (8.4-10.2) mg/dL Total Bilirubin 0.5 (0.2-1.3) mg/dL AST 20 (14-36) U/L ALT 25 (9-52) U/L Alkaline Phosphatase 90 (38-126) U/L Total Protein 6.8 (6.3-8.2) g/dL Albumin 3.2 L (3.5-5.0) g/dL Assessment and Plan Plan: Impression/plan: 1. 71-year-old white female with chronic left lower quadrant abdominal discomfort, nausea/vomiting 2. Nonspecific mass on CAT scan patient has been evaluated by Dr. Schaffer, monitored does not think this is cancer 3. Irritable bowel syndrome 4. Anemia 5. New-onset atrial fibrillation 6. Diabetes 7. Hypertension 8. Psoriasis 9. Coronary artery disease with stent placement 4 Plan: 1. Medical management 2. Will review computed tomography scan 3. Operative report and reports from Dr. Ansari and GI doctor At this time patient does not have an acute surgical abdomen. We will be happy to follow with you and review reports from her prior surgery as well as Dr. Ansari and GI physician. Patient may well need operative intervention on an elective basis related to the fullness in the left lower quadrant and possible reaction to the mesh.
[2016-10-01 11:29] LABS: Glucose,Whole Blood 154 mg/dL (75-99)
[2016-10-01] MEDS: EDOXABAN TOSYLATE 60 MG TABLET PO SCH (12:38)
[2016-10-01] MEDS: FUROSEMIDE 20 MG TAB PO SCH (12:38)
[2016-10-01 12:43] LABS: Hemoglobin A1C 10.2 % (4.2-6.1)
[2016-10-01] MEDS: KETOROLAC 30 MG/ML 1 ML VIAL IVP PRN ×2 (12:44→19:17)
--- NOTE | 2016-10-01 13:25 | P.CRDCN ---
History of Present Illness Consult date: 10/01/16 Reason for Consult (text): AF w/RVR Chief complaint: intractable nausea and vomiting History of present illness: This is a pleasant 71-year-old female patient who follows with Dr. Newman. She has a known history of hypertensin, paroxysmal atrial fibrillation, sick sinus syndrome and recent pacemaker implantation. She presented to the emergency room with a history of ongoing nausea and vomiting, unable to keep medicaitons down and feeling her heart racing. She was found to be in atrial fibrillation with RVR. She apparently had been holding medications for a procedure earlier this week and has since had problems eating, drinking or keeping her medications down. She was initiated on a cardizem gtt. She is currently maintaining sinus rhythm. Her nausea and vomiting have improved and she has been able to keep small amounts of full liquids down. Past Medical History Past Medical History: Cancer, Diabetes Mellitus, Hypertension, Myocardial Infarction ([place]), Skin Disorder Additional Past Medical History / Comment(s): HEART MURMUR, IBS, RECENT UTI, PSORIASIS, HX SHINGLES, NEUROPATHY, CERVICAL AND BREAST CANCER-NO CHEMO OR RAD., Last Myocardial Infarction Date:: 2016 History of Any Multi-Drug Resistant Organisms: None Reported Past Surgical History: Breast Surgery, Cholecystectomy, Heart Catheterization With Stent, Hysterectomy, Orthopedic Surgery, Pacemaker, Tonsillectomy Additional Past Surgical History / Comment(s): BILAT BREAST BIOPSY, LT PARTIAL MASTECTOMY-1976, LT KNEE SCOPE, REPAIR LT ROTATOR CUFF, LT CTR, BILAT CATARACT REMOVAL, COLONOSCOPY, EGD Past Anesthesia/Blood Transfusion Reactions: Previous Problems w/ Anesthesia, Motion Sickness, Postoperative Nausea & Vomiting (PONV) Date of Last Stent Placement:: 2016 Type of Cardiac Device: Permanent Pacemaker Device Placement Date:: 05/19/16 Past Psychological History: Anxiety Smoking Status: Former smoker - Past Family History Father Family Medical History: Cancer Mother Family Medical History: Cancer Brother(s) Family Medical History: Cancer Sister(s) Family Medical History: Cancer Medications and Allergies Home Medications Medication Instructions Recorded Confirmed Type Clopidogrel [Plavix] 75 mg PO DAILY 10/01/13 09/30/16 History Nitroglycerin Sl Tabs [Nitrostat] 0.4 mg SL Q5M PRN 10/01/13 09/30/16 History Atorvastatin [Lipitor] 40 mg PO HS 09/01/16 09/30/16 History Calcium Carbonate [Calcium] 600 mg PO DAILY 09/01/16 09/30/16 History Cholecalciferol (Vitamin D3) 2,000 unit PO DAILY 09/01/16 09/30/16 History [Vitamin D3] Edoxaban Tosylate [Savaysa] 60 mg PO DAILY 09/01/16 09/30/16 History Eluxadoline [Viberzi] 75 mg PO DAILY 09/01/16 09/30/16 History Metoprolol Tartrate [Lopressor] 25 mg PO BID 09/01/16 09/30/16 History Omeprazole [PriLOSEC] 40 mg PO DAILY 09/01/16 09/30/16 History Ondansetron Odt [Zofran ODT] 4 mg PO Q8HR PRN 09/01/16 09/30/16 History Propafenone [Rythmol] 150 mg PO TID 09/01/16 09/30/16 History rOPINIRole HCL [Requip] 1 mg PO TID 09/01/16 09/30/16 History Furosemide [Lasix] 20 mg PO DAILY 09/30/16 09/30/16 History INSULIN LISPRO (humaLOG) [humaLOG See Protocol SQ ACHS 09/30/16 09/30/16 History (formulary)] Potassium Chloride [K-Tab ER] 10 meq PO DAILY 09/30/16 09/30/16 History Allergies Allergy/AdvReac Type Severity Reaction Status Date / Time ceftriaxone sodium Allergy HIVES Verified 09/30/16 16:03 [From [facility]] Physical Exam Vitals: Vital Signs Temp Pulse Pulse Resp BP BP Pulse Ox 10/01/16 08:00 97 F L 110 H 18 129/68 94 L 10/01/16 04:00 97.2 F L 92 18 123/59 98 10/01/16 00:00 98.3 F 82 18 123/61 100 09/30/16 21:34 98.0 F 142 H 18 142/74 99 09/30/16 21:00 98.0 F 142 H 18 142/74 99 09/30/16 20:09 98.5 F 147 H 18 171/96 100 09/30/16 19:28 158 H 18 122/69 95 09/30/16 19:05 132 H 20 150/86 98 09/30/16 18:00 149 H 22 156/79 98 09/30/16 15:12 97.4 F L 78 20 140/91 99 Intake and Output 09/30/16 10/01/16 10/01/16 22:59 06:59 14:59 Intake Total 15.75 116.25 1325 Output Total 100 100 Balance -84.25 16.25 1325 Intake: Intake, IV Titration 15.75 116.25 1000 Amount Diltiazem 125 mg In 15.75 116.25 Sodium Chloride 0.9% 100 ml @ 5 MG/HR 5 mls/hr IV .Q24H KARIE Rx#:[id number] Lactated Ringers 1,000 ml 1000 @ 100 mls/hr IV .Q10H KARIE Rx#:[id number] Oral 325 Output: Urine 100 Emesis 100 Other: # Voids 1 Weight 81.5 kg 84.2 kg PHYSICAL EXAMINATION: HEENT: Head is atraumatic, normocephalic. Pupils equal, round. Neck is supple. There is no elevated jugular venous pressure. HEART EXAMINATION: Heart sounds regular, S1 and S2 normal. No murmur or gallop heard. CHEST EXAMINATION: Lungs are clear to auscultation and precussion. No chest wall tenderness is noted on palpation or with deep breathing. ABDOMEN: Soft, nontender. Bowel sounds are heard. No organomegaly noted. EXTREMITIES: 2+ peripheral pulses with evidence of 2+ left lower leg edema and no calf tenderness noted. NEUROLOGIC patient is awake, alert and oriented x3. . Results 10/01/16 06:41 10/01/16 06:41 Cardiac Enzymes 09/30/16 09/30/16 Range/Units 16:40 16:40 AST 20 (14-36) U/L Troponin I 0.019 (0.000-0.034) ng/mL CBC 09/30/16 10/01/16 Range/Units 16:40 06:41 WBC 6.6 6.2 (3.8-10.6) k/uL RBC 3.49 L 2.88 L (3.80-5.40) m/uL Hgb 10.1 L 8.3 L D (11.4-16.0) gm/dL Hct 31.3 L 26.1 L (34.0-46.0) % Plt Count 379 319 (150-450) k/uL Comprehensive Metabolic Panel 09/30/16 10/01/16 Range/Units 16:40 06:41 Sodium 140 140 (137-145) mmol/L Potassium 3.4 L 3.3 L (3.5-5.1) mmol/L Chloride 98 104 (98-107) mmol/L Carbon Dioxide 26 27 (22-30) mmol/L BUN 22 H 21 H (7-17) mg/dL Creatinine 0.89 0.90 (0.52-1.04) mg/dL Glucose 282 H 175 H (74-99) mg/dL Calcium 9.1 8.3 L (8.4-10.2) mg/dL AST 20 (14-36) U/L ALT 25 (9-52) U/L Alkaline Phosphatase 90 (38-126) U/L Total Protein 6.8 (6.3-8.2) g/dL Albumin 3.2 L (3.5-5.0) g/dL Current Medications Generic Name Dose Route Start Last Admin Trade Name Popq PRN Reason Stop Dose Admin Atorvastatin Calcium 40 mg 09/30/16 21:00 09/30/16 22:04 Lipitor PO 40 mg HS KARIE Administration Clopidogrel Bisulfate 75 mg 10/01/16 09:00 10/01/16 08:21 Plavix PO 75 mg DAILY KARIE Administration Edoxaban 60 mg 10/01/16 12:15 10/01/16 12:38 Savaysa PO 60 mg DAILY KARIE Administration Furosemide 20 mg 10/01/16 12:15 10/01/16 12:38 Lasix PO 20 mg DAILY KARIE Administration Lactated Ringer's 1,000 mls @ 75 mls/hr 09/30/16 19:30 10/01/16 12:40 Lactated Ringers IV 75 mls/hr .[id number] KARIE Administration Insulin Glargine 30 unit 09/30/16 21:00 09/30/16 22:04 Lantus SQ 30 unit HS KARIE Administration Insulin Human Lispro 0 unit 09/30/16 21:32 10/01/16 12:39 Humalog SQ 1 unit ACHS KARIE Administration Protocol Ketorolac Tromethamine 15 mg 09/30/16 19:23 10/01/16 12:44 Toradol IVP 07/19/17 19:24 15 mg Q6HR PRN Administration Moderate Pain Metoclopramide HCl 10 mg 10/01/16 00:00 10/01/16 12:38 Reglan IVP 10 mg Q6HR KARIE Administration Metoprolol Tartrate 25 mg 09/30/16 21:00 10/01/16 08:21 Lopressor PO 25 mg BID KARIE Administration Naloxone HCl 0.2 mg 09/30/16 19:23 Narcan IV Q2M PRN Opioid Reversal Ondansetron HCl 4 mg 09/30/16 19:23 Zofran IVP Q8HR PRN Nausea And Vomiting Pantoprazole Sodium 40 mg 10/01/16 07:30 10/01/16 06:52 Protonix PO 40 mg [id number] KARIE Administration Potassium Chloride 10 meq 10/01/16 09:00 10/01/16 08:21 K-Dur 10 PO 10 meq DAILY KARIE Administration Propafenone HCl 150 mg 09/30/16 22:00 10/01/16 08:22 Rythmol PO 150 mg TID KARIE Administration Ropinirole HCl 1 mg 09/30/16 22:00 10/01/16 08:21 Requip PO 1 mg TID KARIE Administration Intake and Output 09/30/16 10/01/16 10/01/16 22:59 06:59 14:59 Intake Total 15.75 116.25 1325 Output Total 100 100 Balance -84.25 16.25 1325 Intake: Intake, IV Titration 15.75 116.25 1000 Amount Diltiazem 125 mg In 15.75 116.25 Sodium Chloride 0.9% 100 ml @ 5 MG/HR 5 mls/hr IV .Q24H KARIE Rx#:[id number] Lactated Ringers 1,000 ml 1000 @ 100 mls/hr IV .Q10H KARIE Rx#:[id number] Oral 325 Output: Urine 100 Emesis 100 Other: # Voids 1 Weight 81.5 kg 84.2 kg 10/01/16 06:41 10/01/16 06:41 Assessment and Plan Plan: Assessment and plan #1 intractable nausea and vomiting, GI on consult #2 Paroxysmal atrial fibrillation with RVR, currently sinus rhythm #3 sick sinus syndrome, s/p pacemaker implant #4 left lower extremity edema, per patient ultrasound earlier this week negative for DVT From cardiology's perspective, we will resume home cardiac medications including Savaysa. Encourage oral intake. Decrease IV fluids to 75ml/hr. Further recommendations to follow. INFORMATION TECHNOLOGY SPECIALIST note has been reviewed, I agree with a documented findings and plan of care. Patient was seen and examined.
--- NOTE | 2016-10-01 15:28 | P.PN ---
Progress Note - Text DATE OF SERVICE: 10/01/2016 PRESENTING COMPLAINT: Abdominal pain and nausea INTERVAL HISTORY: This is 71-year-old patient who has persistent nausea, left lower quadrant pain , atrial fibrillation with rapid ventricular rate, on a Cardizem drip. 10/01/2016: Patient lying in bed, appears comfortable yet anxious, continues to feel nauseated, continues to have left lower quadrant abdominal pain, telemetry monitoring reveals atrial fibrillation rate in the low 100s, Cardizem drip continues. Lengthy discussion had with patient and regarding current illness state, patient repeatedly stated she wants just to feel better. Patient has been seen by surgery and will await their input as well as cardiology. REVIEW OF SYSTEMS: Done for constitutional ,cardiovascular, GI, pulmonary with relevant findings as above. CURRENT MEDICATIONS Lipitor, Plavix, so they sent, Lasix, Toradol, Reglan, Protonix, potassium. PHYSICAL EXAM VITAL SIGNS: Temperature 97.0, pulse 80, respirations 18, blood pressure 129/68, oxygen saturation 94% on room air. GENERAL APPEARANCE: Lying in bed, anxious appearing. EYES: Pupils equal. Conjunctiva normal. NECK: JVD not raised. Mass not palpable. RESPIRATORY: Respiratory effort normal. Lungs diminished to auscultation. CARDIOVASCULAR: First and second sounds normal. No edema. ABDOMEN: Soft. Mild Left lower quadrant tenderness, Liver and spleen not palpable. No tenderness. No mass palpable. PSYCHIATRY: Alert and oriented x3. Mood and affect anxious appearing l. INVESTIGATIONS: White blood cell count 6.2, hemoglobin 8.3, potassium 3.3, Accu-Cheks noted. Abdominal x-ray: No acute radiographic process. ASSESSMENT: -Nausea/left lower quadrant abdominal pain secondary to a nonspecific mass, workup by Dr. Ansari at [facility], likely not cancerous. Included in the differential irritable bowel syndrome, gastroparesis, slow to respond. -Paroxysmal atrial fibrillation with rapid ventricular rate, present on admission -Nonspecific mass in the pelvic area -Diabetes mellitus type 2 chronically on insulin with peripheral neuropathy. -Essential hypertension. -Irritable bowel syndrome -Psoriasis -Coronary artery disease, with stent. PLAN: Await input from surgery and cardiology. Continue scheduled Reglan, Cardizem drip continues for rate control per cardiology. We will continue to monitor the patient closely. DRONE SOFTWARE DEVELOPMENT ENGINEER statement: Patient was seen and examined by nurse practitioner Marleny Encarnacion and all elements of the case discussed with attending Dr. Pacheco
[2016-10-01 16:42] LABS: Glucose,Whole Blood 120 mg/dL (75-99)
[2016-10-01 20:53] LABS: Glucose,Whole Blood 137 mg/dL (75-99)
[2016-10-01] MEDS: INSULIN GLARGINE 100 UNIT/ML 10 ML VIAL SQ SCH (20:57)
[2016-10-01] MEDS: ATORVASTATIN 40 MG TAB PO SCH (20:58)
[2016-10-02] MEDS: KETOROLAC 30 MG/ML 1 ML VIAL IVP PRN ×3 (03:58→21:19)
[2016-10-02] MEDS: PROPAFENONE 150 MG TAB PO SCH ×3 (05:48→21:18)
[2016-10-02] MEDS: METOPROLOL TARTRATE 25 MG TAB PO SCH (05:49)
[2016-10-02] MEDS: PANTOPRAZOLE 40 MG TABLET PO SCH (05:49)
[2016-10-02] MEDS: INSULIN LISPRO (humaLOG) 300 UNIT/3 ML VIAL SQ SCH ×4 (06:32→21:19)
[2016-10-02 06:42] LABS: Glucose,Whole Blood 80 mg/dL (75-99)
[2016-10-02 06:42] LABS: Glucose,Whole Blood 64 mg/dL (75-99)
[2016-10-02] MEDS: METOCLOPRAMIDE 5 MG/ML 2 ML VIAL IVP SCH ×2 (06:43→12:39)
--- NOTE | 2016-10-02 07:46 | PN ---
DATE OF SERVICE: 10/01/16 ATTENDING NOTE: This patient was seen and examined by me. Reviewed the note of my nurse practitioner, Ms. Encarnacion, discussed, additional findings below. INTERVAL HISTORY: This patient presented with nausea and vomiting and left lower quadrant pain which is being essentially worked up and atrial fib with rapid ventricular rate. My suspicion was for gastroparesis. Did put the patient on Reglan to which she is responding. Actually she kept full clear liquid breakfast down. Keen to advance. On examination, afebrile, pulse 80, respiratory rate 18, blood pressure 104/54. On exam, lungs are clear. Cardiovascular: Heart sounds irregular. Minimal left lower quadrant tenderness. Investigations: White count 6.2. Hemoglobin 8.3. Accu-Cheks are noted. ASSESSMENT: 1. Persistent nausea could be from diabetic gastroparesis as the patient is responding to Reglan. We will switch it over to po. Diet will be advanced. 2. Left lower quadrant pain, could be a reaction to the mesh. PLAN: Dr. Ashely Wise note was noted. We will see what Dr. Springer has to say. Care was discussed with the patient. Follow. The patient remains in atrial fibrillation. MTDD
[2016-10-02] MEDS: CLOPIDOGREL 75 MG TAB PO SCH (08:03)
[2016-10-02] MEDS: POTASSIUM CHLORIDE ER 10 MEQ TAB.ER.PRT PO SCH (08:03)
[2016-10-02] MEDS: EDOXABAN TOSYLATE 60 MG TABLET PO SCH (08:03)
[2016-10-02] MEDS: FUROSEMIDE 20 MG TAB PO SCH (08:03)
[2016-10-02 08:08] LABS: Basophils # (A) 0.1 k/uL (0-0.2); Basophils % (A) 1 %; CH 27.4; CHCM 29.9; Eosinophils # (A) 0.1 k/uL (0-0.7); Eosinophils % (A) 0 %; HCT 30.8 % (34.0-46.0); HDW 2.67; HGB 9.6 gm/dL (11.4-16.0); Hypochromasia Marked; Luc # (Auto) 0.34; Luc % (Auto) 3; Lymphocytes # (A) 1.6 k/uL (1.0-4.8); Lymphocytes % (A) 12 %; MCH 28.6 pg (25.0-35.0); Mean Platelet Volume 8.5; Monocytes # (A) 0.9 k/uL (0-1.0); Monocytes % (A) 7 %; Neutrophils # (A) 9.9 k/uL (1.3-7.7); Neutrophils % (A) 77 %; RBC 3.35 m/uL (3.80-5.40); RDW 13.9 % (11.5-15.5); WBC 12.9 k/uL (3.8-10.6); WBC (Perox) 13.91
[2016-10-02 08:24] LABS: Calcium 8.7 mg/dL (8.4-10.2); Potassium 3.8 mmol/L (3.5-5.1)
--- NOTE | 2016-10-02 09:09 | P.CONS ---
History of Present Illness - Reason for Consult Consult date: 10/01/16 Abdominal pain, nausea and vomiting - History of Present Illness The patient is a 71-year old female who presented to the ER with complaints of abdominal pain, nausea and vomiting. I have seen the patient last month when she presented with lower abdominal pains as well as nausea and vomiting of around 2-3 weeks' duration. The patient indicated that she always had stomach issues but these complaints are different from her baseline. She has history of diarrhea predominant irritable bowel syndrome over the years and she has recently been placed on viberzi which improved her symptoms significantly. She took it twice a day initially and now she takes it once a day with fairly good control. She had prior upper endoscopy and colonoscopy The patient had hysterectomy in her late 20s for cervical cancer. A CT of the abdomen and a pelvic ultrasound were completed and the finding was that of left ovarian abnormality. She was evaluated by Dr Ansari at [facility] who did not think this was cancer and referred her to Dr Muro who performed colonoscopy and a repeat CT showed regression in the size of left ovarian mass. The patient had hernia repair on the left side within the last few weeks and there is question if this is related to the surgery/mesh? Review of Systems Constitutional: Denies fever, chills, sweats, weight gain, or loss. HEENT: Negative for migraines, blurred vision or loss, earaches, drainage, tinnitus, oral mucosal lesions, dysphagia, or odynophagia. Cardiac: Hypertension. Negative for chest pain, arrhythmias, or palpitation. Respiratory: Negative for shortness of breath, hemoptysis, cough, or sputum production. Gastrointestinal: See HPI for pertinent findings. Genitourinary: Negative for hematuria, urgency, frequency, polyuria, dysuria, or penile discharge. Musculoskeletal: Negative for muscle aches, swelling, arthritis, and arthralgias. Neurologic: RLS. Negative for stroke or TIA. Endocrine: Diabetes. Negative for thyroid problems. Skin: Negative for rash or itching. Psychiatric: Negative history for depression and anxiety Past Medical History Past Medical History: Cancer, Diabetes Mellitus, Hypertension, Myocardial Infarction ([place]), Skin Disorder Additional Past Medical History / Comment(s): HEART MURMUR, IBS, RECENT UTI, PSORIASIS, HX SHINGLES, NEUROPATHY, CERVICAL AND BREAST CANCER-NO CHEMO OR RAD., Last Myocardial Infarction Date:: 2016 History of Any Multi-Drug Resistant Organisms: None Reported Past Surgical History: Breast Surgery, Cholecystectomy, Heart Catheterization With Stent, Hysterectomy, Orthopedic Surgery, Pacemaker, Tonsillectomy Additional Past Surgical History / Comment(s): BILAT BREAST BIOPSY, LT PARTIAL MASTECTOMY-1976, LT KNEE SCOPE, REPAIR LT ROTATOR CUFF, LT CTR, BILAT CATARACT REMOVAL, COLONOSCOPY, EGD Past Anesthesia/Blood Transfusion Reactions: Previous Problems w/ Anesthesia, Motion Sickness, Postoperative Nausea & Vomiting (PONV) Date of Last Stent Placement:: 2016 Type of Cardiac Device: Permanent Pacemaker Device Placement Date:: 05/19/16 Past Psychological History: Anxiety Smoking Status: Former smoker - Past Family History Father Family Medical History: Cancer Mother Family Medical History: Cancer Brother(s) Family Medical History: Cancer Sister(s) Family Medical History: Cancer Medications and Allergies Home Medications Medication Instructions Recorded Confirmed Type Clopidogrel [Plavix] 75 mg PO DAILY 10/01/13 09/30/16 History Nitroglycerin Sl Tabs [Nitrostat] 0.4 mg SL Q5M PRN 10/01/13 09/30/16 History Atorvastatin [Lipitor] 40 mg PO HS 09/01/16 09/30/16 History Calcium Carbonate [Calcium] 600 mg PO DAILY 09/01/16 09/30/16 History Cholecalciferol (Vitamin D3) 2,000 unit PO DAILY 09/01/16 09/30/16 History [Vitamin D3] Edoxaban Tosylate [Savaysa] 60 mg PO DAILY 09/01/16 09/30/16 History Eluxadoline [Viberzi] 75 mg PO DAILY 09/01/16 09/30/16 History Metoprolol Tartrate [Lopressor] 25 mg PO BID 09/01/16 09/30/16 History Omeprazole [PriLOSEC] 40 mg PO DAILY 09/01/16 09/30/16 History Ondansetron Odt [Zofran ODT] 4 mg PO Q8HR PRN 09/01/16 09/30/16 History Propafenone [Rythmol] 150 mg PO TID 09/01/16 09/30/16 History rOPINIRole HCL [Requip] 1 mg PO TID 09/01/16 09/30/16 History Furosemide [Lasix] 20 mg PO DAILY 09/30/16 09/30/16 History INSULIN LISPRO (humaLOG) [humaLOG See Protocol SQ ACHS 09/30/16 09/30/16 History (formulary)] Potassium Chloride [K-Tab ER] 10 meq PO DAILY 09/30/16 09/30/16 History Allergies Allergy/AdvReac Type Severity Reaction Status Date / Time ceftriaxone sodium Allergy HIVES Verified 09/30/16 16:03 [From Rocephin] Physical Exam Vitals: Vital Signs Temp Pulse Pulse Resp BP BP Pulse Ox 10/01/16 04:00 97.2 F L 92 18 123/59 98 10/01/16 00:00 98.3 F 82 18 123/61 100 09/30/16 21:34 98.0 F 142 H 18 142/74 99 09/30/16 21:00 98.0 F 142 H 18 142/74 99 09/30/16 20:09 98.5 F 147 H 18 171/96 100 09/30/16 19:28 158 H 18 122/69 95 09/30/16 19:05 132 H 20 150/86 98 09/30/16 18:00 149 H 22 156/79 98 09/30/16 15:12 97.4 F L 78 20 140/91 99 Intake and Output 09/30/16 10/01/16 10/01/16 22:59 06:59 14:59 Intake Total 15.75 116.25 1325 Output Total 100 100 Balance -84.25 16.25 1325 Intake: Intake, IV Titration 15.75 116.25 1000 Amount Diltiazem 125 mg In 15.75 116.25 Sodium Chloride 0.9% 100 ml @ 5 MG/HR 5 mls/hr IV .Q24H KARIE Rx#:[id number] Lactated Ringers 1,000 ml 1000 @ 100 mls/hr IV .Q10H KARIE Rx#:[id number] Oral 325 Output: Urine 100 Emesis 100 Other: # Voids 1 Weight 81.5 kg 84.2 kg General appearance: The patient is alert, oriented, in no acute distress. HET: Head is normocephalic and atraumatic. Pupils are equal and reactive. Oropharynx is clear without lesions. Neck: Supple without lymphadenopathy. Trachea midline. Heart: S1 S2. Lungs: No crackles or wheezes are heard. Abdomen: Soft, nontender, nondistended with bowel sounds. No peritoneal signs. No palpable organomegaly or masses. Extremities: Normal skin color and turgor. No cyanosis, rash, ulceration, clubbing, or edema. Radial and pedal pulses are 2/4 bilaterally. Neurological: No focal deficits. Strength and sensation are grossly intact. Results CBC & Chem 7: 10/02/16 07:25 10/02/16 07:25 Labs: Abnormal Lab Results - Last 24 Hours (Table) 09/30/16 09/30/16 09/30/16 Range/Units 16:40 16:40 16:40 RBC 3.49 L (3.80-5.40) m/uL Hgb 10.1 L (11.4-16.0) gm/dL Hct 31.3 L (34.0-46.0) % Monocytes # (Manual) (0-1.0) k/uL Potassium 3.4 L (3.5-5.1) mmol/L BUN 22 H (7-17) mg/dL Glucose 282 H (74-99) mg/dL POC Glucose (mg/dL) (75-99) mg/dL Plasma Lactic Acid Mitch 2.1 H* (0.7-2.0) mmol/L Calcium (8.4-10.2) mg/dL Albumin 3.2 L (3.5-5.0) g/dL Urine Appearance (Clear) Urine Protein (Negative) Urine Glucose (UA) (Negative) Urine Ketones (Negative) Amorphous Sediment (None) /hpf Urine Mucus (None) /hpf Urine Yeast (Budding) (None) /hpf 09/30/16 10/01/16 10/01/16 Range/Units 21:12 03:30 06:20 RBC (3.80-5.40) m/uL Hgb (11.4-16.0) gm/dL Hct (34.0-46.0) % Monocytes # (Manual) (0-1.0) k/uL Potassium (3.5-5.1) mmol/L BUN (7-17) mg/dL Glucose (74-99) mg/dL POC Glucose (mg/dL) 226 H 179 H (75-99) mg/dL Plasma Lactic Acid Mitch (0.7-2.0) mmol/L Calcium (8.4-10.2) mg/dL Albumin (3.5-5.0) g/dL Urine Appearance Turbid H (Clear) Urine Protein 3+ H (Negative) Urine Glucose (UA) 2+ H (Negative) Urine Ketones 2+ H (Negative) Amorphous Sediment Occasional H (None) /hpf Urine Mucus Occasional H (None) /hpf Urine Yeast (Budding) Many H (None) /hpf 10/01/16 10/01/16 Range/Units 06:41 06:41 RBC 2.88 L (3.80-5.40) m/uL Hgb 8.3 L D (11.4-16.0) gm/dL Hct 26.1 L (34.0-46.0) % Monocytes # (Manual) 1.3 H (0-1.0) k/uL Potassium 3.3 L (3.5-5.1) mmol/L BUN 21 H (7-17) mg/dL Glucose 175 H (74-99) mg/dL POC Glucose (mg/dL) (75-99) mg/dL Plasma Lactic Acid Mitch (0.7-2.0) mmol/L Calcium 8.3 L (8.4-10.2) mg/dL Albumin (3.5-5.0) g/dL Urine Appearance (Clear) Urine Protein (Negative) Urine Glucose (UA) (Negative) Urine Ketones (Negative) Amorphous Sediment (None) /hpf Urine Mucus (None) /hpf Urine Yeast (Budding) (None) /hpf Assessment and Plan Plan: 71-year old female with LLQ pain, nausea and vomiting. Course and workup has been detailed above. I suspect her hernia surgery on that side and the abnormality on CT are relevant. Doubt primary GI etiology, especially in light of normal colonoscopy by Dr Muro recently. I will discuss with you and with surgery.
[2016-10-02] MEDS: LACTATED RINGERS 1,000 ML IV SCH (09:13)
--- NOTE | 2016-10-02 09:54 | P.OBCN ---
History of Present Illness Consult date: 10/02/16 Requesting physician: Barney Pacheco Reason for consult: other (Pelvic mass) Chief complaint: Intractable nausea and vomiting, abdominal pain History of present illness: This is a 71-year-old female who has previously been seen by me during her last admission around September 04. At that time she did have a computed tomography scan and several pelvic ultrasounds that did show a left adnexal mass varying in size from CT to ultrasound. Computed tomography scan showed the mass had approximate 12 cm and an ultrasound showed a mass at approximately 5.6 cm. I did arrange for her to be seen by Dr. Ari Ansari at [facility] and she did see him around September 11. At that time based on a normal CA-125 and his review of the CT and ultrasound, his opinion was that the mass was most likely not cancer however it was still concerning that she had a mass at her age. He did refer her to a Dr. Engel at [facility] who did recently perform a colonoscopy and found a small benign polyp. He also did a repeat computed tomography scan last week and the patient told me that the tech told her this mass was smaller. I have not seen a copy of this report. In the letter that I received back from Dr. Ansari, he did plan to see her back in approximately 1 month's time after she was seen by Dr. Engel to discuss further surgical intervention at that time. She said that Dr. Engel did feel that the mesh may be contributing to her pain in the left adnexa region, and that this would need to be surgically removed. Mrs. Warren now presents back with intractable nausea and vomiting along with increased pelvic pain. In addition she was found to be in atrial fibrillation upon arrival. Today she is complaining of pain due to her restless legs. Past Medical History Past Medical History: Cancer, Diabetes Mellitus, Hypertension, Myocardial Infarction (DE), Skin Disorder Additional Past Medical History / Comment(s): HEART MURMUR, IBS, RECENT UTI, PSORIASIS, HX SHINGLES, NEUROPATHY, CERVICAL AND BREAST CANCER-NO CHEMO OR RAD., Last Myocardial Infarction Date:: 2016 History of Any Multi-Drug Resistant Organisms: None Reported Past Surgical History: Breast Surgery, Cholecystectomy, Heart Catheterization With Stent, Hysterectomy, Orthopedic Surgery, Pacemaker, Tonsillectomy Additional Past Surgical History / Comment(s): BILAT BREAST BIOPSY, LT PARTIAL MASTECTOMY-1976, LT KNEE SCOPE, REPAIR LT ROTATOR CUFF, LT CTR, BILAT CATARACT REMOVAL, COLONOSCOPY, EGD Past Anesthesia/Blood Transfusion Reactions: Previous Problems w/ Anesthesia, Motion Sickness, Postoperative Nausea & Vomiting (PONV) Date of Last Stent Placement:: 2016 Type of Cardiac Device: Permanent Pacemaker Device Placement Date:: 05/19/16 Past Psychological History: Anxiety Smoking Status: Former smoker - Past Family History Father Family Medical History: Cancer Mother Family Medical History: Cancer Brother(s) Family Medical History: Cancer Sister(s) Family Medical History: Cancer Medications and Allergies Home Medications Medication Instructions Recorded Confirmed Type Clopidogrel [Plavix] 75 mg PO DAILY 10/01/13 09/30/16 History Nitroglycerin Sl Tabs [Nitrostat] 0.4 mg SL Q5M PRN 10/01/13 09/30/16 History Atorvastatin [Lipitor] 40 mg PO HS 09/01/16 09/30/16 History Calcium Carbonate [Calcium] 600 mg PO DAILY 09/01/16 09/30/16 History Cholecalciferol (Vitamin D3) 2,000 unit PO DAILY 09/01/16 09/30/16 History [Vitamin D3] Edoxaban Tosylate [Savaysa] 60 mg PO DAILY 09/01/16 09/30/16 History Eluxadoline [Viberzi] 75 mg PO DAILY 09/01/16 09/30/16 History Metoprolol Tartrate [Lopressor] 25 mg PO BID 09/01/16 09/30/16 History Omeprazole [PriLOSEC] 40 mg PO DAILY 09/01/16 09/30/16 History Ondansetron Odt [Zofran ODT] 4 mg PO Q8HR PRN 09/01/16 09/30/16 History Propafenone [Rythmol] 150 mg PO TID 09/01/16 09/30/16 History rOPINIRole HCL [Requip] 1 mg PO TID 09/01/16 09/30/16 History Furosemide [Lasix] 20 mg PO DAILY 09/30/16 09/30/16 History INSULIN LISPRO (humaLOG) [humaLOG See Protocol SQ ACHS 09/30/16 09/30/16 History (formulary)] Potassium Chloride [K-Tab ER] 10 meq PO DAILY 09/30/16 09/30/16 History Allergies Allergy/AdvReac Type Severity Reaction Status Date / Time ceftriaxone sodium Allergy HIVES Verified 09/30/16 16:03 [From Alirezasdchana] Exam Osteopathic Statement: *. No significant issues noted on an osteopathic structural exam other than those noted in the History and Physical/Consult. - Vital Signs Vital signs: Vital Signs Temp Pulse Resp BP Pulse Ox 10/02/16 04:00 99.2 F 112 H 18 137/53 92 L 10/02/16 00:00 99.3 F 92 18 125/63 93 L 10/01/16 20:00 98.2 F 105 H 18 141/63 94 L 10/01/16 15:56 97.1 F L 96 18 122/58 96 10/01/16 12:00 97.1 F L 80 18 114/54 92 L Intake and Output 10/01/16 10/02/16 10/02/16 22:59 06:59 14:59 Intake Total 725 825 90 Balance 725 825 90 Intake: Intake, IV Titration 725 825 Amount Lactated Ringers 1,000 ml 725 825 @ 75 mls/hr IV .[id number] [facility] Rx#:[id number] Oral 90 Other: Weight 84 kg Exam deferred at this time due to patient discomfort. Results Result Diagrams: 10/02/16 07:25 10/02/16 07:25 Abnormal Lab Results - Last 24 Hours (Table) 09/30/16 10/01/16 10/01/16 Range/Units 16:40 11:27 16:37 WBC (3.8-10.6) k/uL RBC (3.80-5.40) m/uL Hgb (11.4-16.0) gm/dL Hct (34.0-46.0) % Neutrophils # (1.3-7.7) k/uL BUN (7-17) mg/dL Creatinine (0.52-1.04) mg/dL Glucose (74-99) mg/dL POC Glucose (mg/dL) 154 H 120 H (75-99) mg/dL Hemoglobin A1c 10.2 H (4.2-6.1) % 10/01/16 10/02/16 10/02/16 Range/Units 20:40 06:10 07:25 WBC 12.9 H (3.8-10.6) k/uL RBC 3.35 L (3.80-5.40) m/uL Hgb 9.6 L (11.4-16.0) gm/dL Hct 30.8 L (34.0-46.0) % Neutrophils # 9.9 H (1.3-7.7) k/uL BUN (7-17) mg/dL Creatinine (0.52-1.04) mg/dL Glucose (74-99) mg/dL POC Glucose (mg/dL) 137 H 64 L (75-99) mg/dL Hemoglobin A1c (4.2-6.1) % 10/02/16 Range/Units 07:25 WBC (3.8-10.6) k/uL RBC (3.80-5.40) m/uL Hgb (11.4-16.0) gm/dL Hct (34.0-46.0) % Neutrophils # (1.3-7.7) k/uL BUN 22 H (7-17) mg/dL Creatinine 1.09 H (0.52-1.04) mg/dL Glucose 107 H (74-99) mg/dL POC Glucose (mg/dL) (75-99) mg/dL Hemoglobin A1c (4.2-6.1) % Assessment and Plan (1) Abdominal pain Status: Acute (2) Adnexal mass Status: Acute Plan: My recommendations are that she follow back up with Dr. Ari Ansari as planned next week. Even though the likelihood of this mass being cancer is low , any significant mass in postmenopausal woman should be treated as cancer until proven otherwise. I recommend that she have surgery in a facility where [employer] oncology is available in case it does turn sewer to be cancer. The patient has already met with Dr. Ari Ansari who is a [facility] [facility] [facility] oncologist at [facility]. This patient has multiple other comorbidities that do put her at high risk for surgery and therefore her surgery should be performed in a high level facility with [employer] oncology. The consultation letter that I received back from Dr. Ansari is available in my office and can be faxed over to the hospital on Monday morning if desired. I has not seen a copy of her recent computed tomography scan done at [facility] and it may be beneficial to get a copy of this for her chart also. At this point I have no further input from a gynecologic standpoint. She should follow-up as outpatient as scheduled. If there are any further questions for me, please contact me.
[2016-10-02] MEDS ORDERED: METOPROLOL TARTRATE 25 MG TAB PO STA (10:29)
[2016-10-02] MEDS ORDERED: ALPRAZolam 0.25 MG TAB PO STA (10:59)
--- NOTE | 2016-10-02 11:19 | P.PN ---
Subjective Patient is a 71-year-old female who has been followed for a adnexal mass seen on CAT scan and ultrasound by [facility]. There was some question as to whether this mass represents an ovarian source versus a hematoma related to prior hernia surgery. I discussed the case in detail with Dr. Springer who sent the patient to see Dr. Ari Ansari at [facility]. The patient does have a follow-up appointment scheduled with Dr. Ansari. The concern is that the pelvic mass may represent a malignancy of ovarian etiology. The feeling is that if this is possible that she should be treated at a tertiary care center. Again she does have an appointment to follow-up with Dr. Ansari. Patient has no change in her abdominal symptoms today. She has been tolerating a diet with no further nausea and vomiting. She does have some cardiac issues for which she is being seen by Dr. Hess. After discussion with Dr. Hess is felt that these cardiac issues need to be resolved prior to any surgical intervention. Objective - Vital Signs Vital signs: Vital Signs Temp 97.1 F L 10/02/16 08:00 Pulse 111 H 10/02/16 08:00 Resp 18 10/02/16 08:00 BP 118/64 10/02/16 08:00 Pulse Ox 96 10/02/16 08:00 Intake & Output 10/01/16 10/02/16 10/02/16 18:59 06:59 18:59 Intake Total 2450 825 90 Balance 2450 825 90 Weight 84 kg Intake: Intake, IV Titration 1725 825 Amount Lactated Ringers 1,000 ml 1725 825 @ 75 mls/hr IV .[id number] [facility] Rx#:[id number] Oral 725 90 - Constitutional General appearance: Present: obese - Respiratory Respiratory: bilateral: CTA - Cardiovascular Heart sounds: normal: S1, S2 - Gastrointestinal Gastrointestinal Comment(s): Mild tender left lower quadrant Positive bowel sounds General gastrointestinal: Present: soft - Psychiatric Psychiatric: Present: A&O x's 3, appropriate affect, intact judgment & insight - Labs CBC & Chem 7: 10/02/16 07:25 10/02/16 07:25 Labs: Abnormal Lab Results - Last 24 Hours (Table) 09/30/16 10/01/16 10/01/16 Range/Units 16:40 11:27 16:37 WBC (3.8-10.6) k/uL RBC (3.80-5.40) m/uL Hgb (11.4-16.0) gm/dL Hct (34.0-46.0) % Neutrophils # (1.3-7.7) k/uL BUN (7-17) mg/dL Creatinine (0.52-1.04) mg/dL Glucose (74-99) mg/dL POC Glucose (mg/dL) 154 H 120 H (75-99) mg/dL Hemoglobin A1c 10.2 H (4.2-6.1) % 10/01/16 10/02/16 10/02/16 Range/Units 20:40 06:10 07:25 WBC 12.9 H (3.8-10.6) k/uL RBC 3.35 L (3.80-5.40) m/uL Hgb 9.6 L (11.4-16.0) gm/dL Hct 30.8 L (34.0-46.0) % Neutrophils # 9.9 H (1.3-7.7) k/uL BUN (7-17) mg/dL Creatinine (0.52-1.04) mg/dL Glucose (74-99) mg/dL POC Glucose (mg/dL) 137 H 64 L (75-99) mg/dL Hemoglobin A1c (4.2-6.1) % 10/02/16 Range/Units 07:25 WBC (3.8-10.6) k/uL RBC (3.80-5.40) m/uL Hgb (11.4-16.0) gm/dL Hct (34.0-46.0) % Neutrophils # (1.3-7.7) k/uL BUN 22 H (7-17) mg/dL Creatinine 1.09 H (0.52-1.04) mg/dL Glucose 107 H (74-99) mg/dL POC Glucose (mg/dL) (75-99) mg/dL Hemoglobin A1c (4.2-6.1) % Assessment and Plan Plan: Impression/plan: 1. 71-year-old white female with chronic left lower quadrant abdominal discomfort, nausea/vomiting 2. Nonspecific mass on CAT scan patient has been evaluated by Dr. Ansari for which she has a return appointment scheduled 3. Irritable bowel syndrome 4. Anemia 5. New-onset atrial fibrillation 6. Diabetes 7. Hypertension 8. Psoriasis 9. Coronary artery disease with stent placement 4 Plan: 1. Medical management 2. Case was discussed with Dr. Merry Brantley and the feeling is patient should be treated at a tertiary care center secondary to the possibility that this adnexal mass may represent an ovarian malignancy 3. At this time patient does not have an acute surgical abdomen
[2016-10-02 12:00] LABS: Glucose,Whole Blood 135 mg/dL (75-99)
[2016-10-02] MEDS ORDERED: Magnesium Replacement Protocol 1 EACH MISC MISCELLANE PRN (14:12)
[2016-10-02] MEDS: MAGNESIUM SULFATE-D5W PMX 1 GM in DEXTROSE/WATER 1 100ML.BAG IVPB SCH ×3 (15:14→17:55)
--- NOTE | 2016-10-02 15:29 | P.PN ---
<Marleny Encarnacion - Last Filed: 10/02/16 15:08> Progress Note - Text DATE OF SERVICE: 10/02/2016 PRESENTING COMPLAINT: Abdominal pain and nausea INTERVAL HISTORY: This is 71-year-old patient who has persistent nausea, left lower quadrant pain , atrial fibrillation with rapid ventricular rate, on a Cardizem drip. 10/01/2016: Patient lying in bed, appears comfortable yet anxious, continues to feel nauseated, continues to have left lower quadrant abdominal pain, telemetry monitoring reveals atrial fibrillation rate in the low 100s, Cardizem drip continues. Lengthy discussion had with patient and regarding current illness state, patient repeatedly stated she wants just to feel better. Patient has been seen by surgery and will await their input as well as cardiology. 10/02/2016: Patient has history of restless leg syndrome and says having significant difficulty today, legs are very jumpy, patient's very anxious and tearful, extra dose of Requip given. Sitting at the bedside, tolerating her diet, no nausea or vomiting today, ambulatory in the hallway, heart rate remains in the low 100s. REVIEW OF SYSTEMS: Done for constitutional ,cardiovascular, GI, pulmonary with relevant findings as above. CURRENT MEDICATIONS Lipitor, Plavix, so they sent, Lasix, Toradol, Reglan, Protonix, potassium. PHYSICAL EXAM VITAL SIGNS: Temperature 97.1, heart rate 111 respirations 18, blood pressure 101/43, oxygen saturation 96% on room air. GENERAL APPEARANCE: Sitting up on the bed, anxious appearing. EYES: Pupils equal. Conjunctiva normal. NECK: JVD not raised. Mass not palpable. RESPIRATORY: Respiratory effort normal. Lungs diminished to auscultation. CARDIOVASCULAR: First and second sounds normal. No edema. ABDOMEN: Soft. Mild Left lower quadrant tenderness, Liver and spleen not palpable. No tenderness. No mass palpable. PSYCHIATRY: Alert and oriented x3. Mood and affect anxious appearing MUSCULOSKELETAL: Bilateral lower extremities very jumpy, as, strength equal bilaterally. INVESTIGATIONS: LABS: White blood cell count 12.9, hemoglobin 9.6, sodium 139, BUN 22, creatinine 1.09 ASSESSMENT: -Nausea/left lower quadrant abdominal pain secondary to a nonspecific mass, workup by Dr. Ansari at [facility], likely not cancerous. Included in the differential irritable bowel syndrome, gastroparesis, improving. -Paroxysmal atrial fibrillation with rapid ventricular rate, present on admission, slow to respond -Nonspecific mass in the pelvic area -Diabetes mellitus type 2 chronically on insulin with peripheral neuropathy. -Essential hypertension. -Irritable bowel syndrome -Psoriasis -Coronary artery disease, with stent. PLAN: Gen. surgery saw the patient today, does not feel there is an acute abdomen, no current need for surgery, DIVER TENDER saw the patient and feels she needs to go to her appointment with Dr. Ari Ansari, next week and at this juncture the team here has nothing further to offer. We'll continue to advance patient's diet she can tolerate, maintain Requip to help with restless legs. We'll continue to follow closely WATER FILTERER statement: Patient was seen and examined by nurse practitioner Marleny Encarnacion and all elements of the case discussed with attending Dr. Pacheco <Barney Pacheco - Last Filed: 10/02/16 16:10> Progress Note - Text Attending note. Date of service-10/02/2016 This patient was seen and examined by me . I reviewed the note of my nurse practitioner, Ms. Encarnacion. Discussed with her, additional findings as below. This patient was recently in the hospital was found to have a left lower quadrant mass. It was unclear if this was a i a cancerous mass. Patient was sent down to [facility] seen by Dr. Ansari , it was felt to be not cancerous. Subsequently the patient had A colonoscopy that came back unremarkable. Patient now readmitted with nausea vomiting some lower quadrant pain. It is impression that this lower quadrant pain could be from a mesh from prior surgery and Dr. Ashely Severino and Dr. Springer from [facility] of following this aspect of the case. Patient also presented with atrial fibrillation for which she is on Cardizem drip. Patient nausea vomiting is felt to be from gastroparesis as patient has done well with Reglan. Today patient eating but 50% of her meals. A bit anxious. Heart rate is in her early teens. On examination: Cardiovascular heart sounds irregular, psych and anxiety present, abdomen minimal left lower quadrant tenderness Investigations: White count 12.9, hemoglobin 9.6, BUN 22, creatinine 1.09 Assessment and plan: -Atrial fibrillation persistent uncontrolled -Left lower quadrant pain could be from prior mesh surgery Nausea vomiting felt to be from gastroparesis from underlying diabetes mellitus Reglan Continue current medication treatment plan. Patient is on Rythmol, Lopressor and for anticoagulation is on Savaysa. We'll also switch the patient to regularly by mouth before meals
[2016-10-02] MEDS: FUROSEMIDE 10 MG/ML 2 ML VIAL IV SCH ×2 (16:35→23:14)
[2016-10-02 16:41] LABS: Glucose,Whole Blood 133 mg/dL (75-99)
[2016-10-02] MEDS: METOCLOPRAMIDE 10 MG TAB PO SCH (17:01)
--- NOTE | 2016-10-02 17:15 | PN ---
This lady has history of CAD, previous PCI. Last stenting was performed in [place] in February. She also has paroxysmal a. fib. Yesterday she was in sinus rhythm but now she is in atrial fib. I am going to increase the beta beth to 50 mg b.i.d. of metoprolol, continue current medications including Rythmol and she is also well anticoagulated. Vital signs are stable. S1/S2 heard normally. Irregular rate and rhythm. noted. Short systolic murmur noted. Lungs reveal improved air entry. Abdomen and lower extremity exam is unchanged. Her abdominal pain and nausea have improved. She is actually looking better. MTDD
[2016-10-02 20:47] LABS: Glucose,Whole Blood 154 mg/dL (75-99)
[2016-10-02] MEDS: INSULIN GLARGINE 100 UNIT/ML 10 ML VIAL SQ SCH (21:18)
[2016-10-02] MEDS: METOPROLOL TARTRATE 50 MG TAB PO SCH (21:18)
[2016-10-02] MEDS: ATORVASTATIN 40 MG TAB PO SCH (21:18)
[2016-10-03] MEDS: LACTATED RINGERS 1,000 ML IV SCH ×2 (01:32→08:04)
[2016-10-03 06:15] LABS: Glucose,Whole Blood 74 mg/dL (75-99)
[2016-10-03] MEDS: INSULIN LISPRO (humaLOG) 300 UNIT/3 ML VIAL SQ SCH ×4 (06:18→21:24)
[2016-10-03] MEDS: METOCLOPRAMIDE 10 MG TAB PO SCH ×3 (06:49→17:20)
[2016-10-03] MEDS: PANTOPRAZOLE 40 MG TABLET PO SCH (06:49)
[2016-10-03] MEDS: CLOPIDOGREL 75 MG TAB PO SCH (08:03)
[2016-10-03] MEDS: METOPROLOL TARTRATE 50 MG TAB PO SCH ×3 (08:03→21:24)
[2016-10-03] MEDS: PROPAFENONE 150 MG TAB PO SCH ×3 (08:03→21:24)
[2016-10-03] MEDS: POTASSIUM CHLORIDE ER 10 MEQ TAB.ER.PRT PO SCH (08:03)
[2016-10-03] MEDS: FUROSEMIDE 10 MG/ML 2 ML VIAL IV SCH (08:04)
[2016-10-03] MEDS: EDOXABAN TOSYLATE 60 MG TABLET PO SCH (08:04)
[2016-10-03 09:58] VITALS: BMI 32.8
[2016-10-03 10:52] LABS: CH 27.9; CHCM 30.7; HDW 2.58; HGB 9.2 gm/dL (11.4-16.0); Hypochromasia Slight; Immature Gran Flag Slight; MCH 27.8 pg (25.0-35.0); MCHC 30.5 g/dL (31.0-37.0); MCV 91.2 fL (80.0-100.0); Mean Platelet Volume 8.5; RBC 3.29 m/uL (3.80-5.40); RDW 14.3 % (11.5-15.5); WBC 7.5 k/uL (3.8-10.6); WBC (Perox) 7.92
--- NOTE | 2016-10-03 11:10 | P.PN ---
Subjective Mrs. Warren is a pleasant 71-year-old female patient who follows with Dr. Newman. She has a known history of hypertension, paroxysmal atrial fibrillation, sick sinus syndrome and recent pacemaker implantation. She presented to the emergency room with a history of ongoing nausea and vomiting, unable to keep medications down and feeling her heart racing. She was found to be in atrial fibrillation with rapid ventricular response. She did convert to sinus rhythm however is currently back in atrial fibrillation since yesterday. Heart rates were poorly controlled and her metoprolol was increased to 50 mg by mouth twice a day. Has patient has had no further vomiting. Her diet has been advanced. Objective - Vital Signs Vital signs: Vital Signs Temp 97.4 F L 10/03/16 08:00 Pulse 135 H 10/03/16 08:00 Resp 19 10/03/16 08:00 BP 127/74 10/03/16 08:00 Pulse Ox 100 10/03/16 08:00 Intake & Output 10/02/16 10/03/16 10/03/16 18:59 06:59 18:59 Intake Total 1075 60 Output Total 925 Balance 1075 -865 Weight 84.1 kg 84.1 kg Intake: IV 60 Lactated Ringers 1,000 ml 60 @ 75 mls/hr IV .[id number] [facility] Rx#:[id number] Intake, IV Titration 825 Amount Lactated Ringers 1,000 ml 825 @ 75 mls/hr IV .[id number] [facility] Rx#:[id number] Oral 250 Output: Urine 925 Other: # Voids 1 # Bowel Movements 1 - Exam PHYSICAL EXAMINATION: HEENT: Head is atraumatic, normocephalic. Pupils equal, round. Neck is supple. There is no elevated jugular venous pressure. HEART EXAMINATION: Heart sounds irregularly irregular, S1 and S2 normal. No murmur or gallop heard. CHEST EXAMINATION: Lungs are clear to auscultation and precussion. No chest wall tenderness is noted on palpation or with deep breathing. ABDOMEN: Soft, nontender. Bowel sounds are heard. No organomegaly noted. EXTREMITIES: 2+ peripheral pulses with evidence of trace left ankle and pedal edema and no calf tenderness noted. NEUROLOGIC patient is awake, alert and oriented x3. . - Labs CBC & Chem 7: 10/03/16 10:30 10/02/16 07:25 Labs: Abnormal Lab Results - Last 24 Hours (Table) 10/02/16 10/02/16 10/02/16 Range/Units 07:25 11:56 16:27 RBC (3.80-5.40) m/uL Hgb (11.4-16.0) gm/dL Hct (34.0-46.0) % MCHC (31.0-37.0) g/dL POC Glucose (mg/dL) 135 H 133 H (75-99) mg/dL Magnesium 1.4 L (1.6-2.3) mg/dL 10/02/16 10/03/16 10/03/16 Range/Units 20:41 06:11 10:30 RBC 3.29 L (3.80-5.40) m/uL Hgb 9.2 L (11.4-16.0) gm/dL Hct 30.0 L (34.0-46.0) % MCHC 30.5 L (31.0-37.0) g/dL POC Glucose (mg/dL) 154 H 74 L (75-99) mg/dL Magnesium (1.6-2.3) mg/dL Assessment and Plan Plan: Assessment and plan #1 intractable nausea and vomiting, GI on consult #2 Paroxysmal atrial fibrillation with RVR, current rates 90-110 #3 sick sinus syndrome, s/p pacemaker implant #4 left lower extremity edema, per patient ultrasound earlier this week negative for DVT From cardiology's perspective, we will increase metoprolol to 50 mg by mouth 3 times a day. Increase the patient's activity. Continue monitor patient on telemetry. If patient's heart rates are well controlled, may be discharged home this evening from our standpoint. She'll follow-up with Dr. Newman in the office. OCCUPATIONAL THERAPIST HOME BASED note has been reviewed, I agree with a documented findings and plan of care. Patient was seen and examined.
[2016-10-03 11:15] LABS: Add Differential Manual Differential
[2016-10-03 11:19] LABS: Band Neutrophils % 7.5 %; Manual Review Performed; Metamyelocytes % 0.5 %; Myelocytes % 0.5 %; Nucleated Red Blood Cells 0 /100 WBC (0-0); Total Cells Counted 200
[2016-10-03 11:26] LABS: Glucose,Whole Blood 110 mg/dL (75-99)
[2016-10-03 11:51] LABS: Calcium 8.1 mg/dL (8.4-10.2); Potassium 3.2 mmol/L (3.5-5.1); Total Bilirubin 0.3 mg/dL (0.2-1.3); Total Protein 5.5 g/dL (6.3-8.2)
[2016-10-03 16:49] LABS: Glucose,Whole Blood 105 mg/dL (75-99)
--- NOTE | 2016-10-03 17:07 | P.PN ---
Subjective Principal diagnosis: Atrial fibrillation, Intractable nausea and vomiting Mrs. Warren is a 71-year-old female with a past medical history of diabetes mellitus poorly controlled, hypertension, coronary artery disease admitted to the hospital with a chief complaint of left lower quadrant abdominal pain with nausea and vomiting. The patient has poorly controlled type 2 diabetes mellitus and had nausea and vomiting were thought to be secondary to gastroparesis. Patient also had A. fib with RVR for which she was started on a Cardizem drip. Patient has a recent hospital admission - she had a vaginal ultrasound and a computed tomography scan of the pelvis -that she found to have a pelvic mass. The patient was referred to [facility] and is in the process of being worked up for a ? malignancy. The patient's A. fib with RVR did convert to sinus rhythm but she is in A. fib since yesterday again. She complains of generalized weakness and fatigue. She is able to tolerate by mouth currently and her diet is being advanced. REVIEW OF SYSTEMS CARDIAC - no chest pain, stiff or palpitations RESPIRATORY - no shortness of breath, no cough GI - lower abdominal pain. Her nausea and vomiting improved- she is tolerating by mouth - no dysuria or hematuria Objective - Vital Signs Vital signs: Vital Signs Temp 97.4 F L 10/03/16 08:00 Pulse 104 H 10/03/16 16:00 Resp 18 10/03/16 16:00 BP 131/75 10/03/16 16:00 Pulse Ox 93 L 10/03/16 16:00 Intake & Output 10/02/16 10/03/16 10/03/16 18:59 06:59 18:59 Intake Total 1075 60 300 Output Total 925 850 Balance 1075 -865 -550 Weight 84.1 kg 84.1 kg Intake: IV 60 Lactated Ringers 1,000 ml 60 @ 75 mls/hr IV .[id number] KARIE Rx#:[id number] Intake, IV Titration 825 Amount Lactated Ringers 1,000 ml 825 @ 75 mls/hr IV .[id number] KARIE Rx#:[id number] Oral 250 300 Output: Urine 925 850 Other: # Voids 1 1 # Bowel Movements 1 1 - Exam GENERAL APPEARANCE: lying in the bed, anxious appearing. EYES: Pupils equal. Conjunctiva normal. NECK: JVD not raised. Mass not palpable. RESPIRATORY: Respiratory effort normal. Lungs diminished to auscultation. CARDIOVASCULAR: First and second sounds normal. No edema. ABDOMEN: Soft. Mild Left lower quadrant tenderness, Liver and spleen not palpable. No tenderness. No mass palpable. PSYCHIATRY: Alert and oriented x3. Mood and affect anxious appearing EXTREMITIES: Bilateral lower extremities - slightly pitting edema on the left lower extremity compared to right side. - Labs CBC & Chem 7: 10/03/16 10:30 10/03/16 10:30 Labs: Abnormal Lab Results - Last 24 Hours (Table) 10/02/16 10/03/16 10/03/16 Range/Units 20:41 06:11 10:30 RBC 3.29 L (3.80-5.40) m/uL Hgb 9.2 L (11.4-16.0) gm/dL Hct 30.0 L (34.0-46.0) % MCHC 30.5 L (31.0-37.0) g/dL Lymphocytes # (Manual) 0.9 L (1.0-4.8) k/uL Monocytes # (Manual) 1.2 H (0-1.0) k/uL Sodium (137-145) mmol/L Potassium (3.5-5.1) mmol/L BUN (7-17) mg/dL Creatinine (0.52-1.04) mg/dL Glucose (74-99) mg/dL POC Glucose (mg/dL) 154 H 74 L (75-99) mg/dL Calcium (8.4-10.2) mg/dL Total Protein (6.3-8.2) g/dL Albumin (3.5-5.0) g/dL 10/03/16 10/03/16 10/03/16 Range/Units 10:30 11:19 16:44 RBC (3.80-5.40) m/uL Hgb (11.4-16.0) gm/dL Hct (34.0-46.0) % MCHC (31.0-37.0) g/dL Lymphocytes # (Manual) (1.0-4.8) k/uL Monocytes # (Manual) (0-1.0) k/uL Sodium 136 L (137-145) mmol/L Potassium 3.2 L (3.5-5.1) mmol/L BUN 19 H (7-17) mg/dL Creatinine 1.10 H (0.52-1.04) mg/dL Glucose 107 H (74-99) mg/dL POC Glucose (mg/dL) 110 H 105 H (75-99) mg/dL Calcium 8.1 L (8.4-10.2) mg/dL Total Protein 5.5 L (6.3-8.2) g/dL Albumin 2.5 L (3.5-5.0) g/dL Assessment and Plan Plan: Assessment Intractable nausea and vomiting Left lower quadrant abdominal pain Atrial fibrillation with rapid ventricular rate Nonspecific pelvic mass in the left side Type 2 diabetes mellitus insulin-dependent Peripheral neuropathy Essential hypertension Irritable bowel syndrome Coronary artery disease status post stent Sick sinus syndrome status post pacemaker implant Left lower extremity edema - ultrasound earlier this week negative for DVT Protein calorie malnutrition mild PLAN : Patient's blood pressure medications are being adjusted by cardiology for rate control for A. fib. Her nausea and vomiting are improving with symptomatic management, so her diet is being advanced. We will continue with the rest of her current medication regimen. Further recommendations to follow depending on the progress of the patient. Overall Prognosis is guarded
[2016-10-03] MEDS ORDERED: Potassium Replacement Protocol 1 EACH MISC MISCELLANE PRN (17:28)
[2016-10-03] MEDS: POTASSIUM CHLORIDE ER 20 MEQ TAB.ER PO SCH ×2 (18:20→19:54)
[2016-10-03] MEDS: INSULIN GLARGINE 100 UNIT/ML 10 ML VIAL SQ SCH (19:54)
[2016-10-03] MEDS: ATORVASTATIN 40 MG TAB PO SCH (19:54)
[2016-10-03 20:56] LABS: Glucose,Whole Blood 163 mg/dL (75-99)
[2016-10-04 05:33] LABS: Glucose,Whole Blood 60 mg/dL (75-99)
[2016-10-04 05:46] LABS: Glucose,Whole Blood 60 mg/dL (75-99)
[2016-10-04] MEDS: INSULIN LISPRO (humaLOG) 300 UNIT/3 ML VIAL SQ SCH ×2 (06:17→12:20)
[2016-10-04] MEDS: LACTATED RINGERS 1,000 ML IV SCH (06:18)
[2016-10-04 06:28] LABS: Glucose,Whole Blood 119 mg/dL (75-99)
[2016-10-04] MEDS: PANTOPRAZOLE 40 MG TABLET PO SCH (06:54)
[2016-10-04] MEDS: METOCLOPRAMIDE 10 MG TAB PO SCH ×2 (06:54→12:20)
[2016-10-04 06:57] LABS: Calcium 8.5 mg/dL (8.4-10.2); Potassium 3.6 mmol/L (3.5-5.1)
[2016-10-04 07:09] LABS: Basophils # (A) 0.1 k/uL (0-0.2); Basophils % (A) 1 %; CH 27.6; CHCM 30.5; Eosinophils # (A) 0.1 k/uL (0-0.7); Eosinophils % (A) 1 %; HCT 29.1 % (34.0-46.0); HGB 9.4 gm/dL (11.4-16.0); Hypochromasia Moderate; Luc # (Auto) 0.34; Luc % (Auto) 4; Lymphocytes # (A) 1.4 k/uL (1.0-4.8); Lymphocytes % (A) 17 %; MCH 29.3 pg (25.0-35.0); MCHC 32.3 g/dL (31.0-37.0); MCV 90.8 fL (80.0-100.0); Mean Platelet Volume 8.5; Monocytes # (A) 0.7 k/uL (0-1.0); Monocytes % (A) 9 %; Neutrophils # (A) 5.9 k/uL (1.3-7.7); Neutrophils % (A) 69 %; WBC 8.5 k/uL (3.8-10.6); WBC (Perox) 8.38
[2016-10-04] MEDS ORDERED: EDOXABAN TOSYLATE 30 MG TABLET PO SCH (09:00)
[2016-10-04] MEDS: CLOPIDOGREL 75 MG TAB PO SCH (09:04)
[2016-10-04] MEDS: METOPROLOL TARTRATE 50 MG TAB PO SCH ×2 (09:04→16:00)
[2016-10-04] MEDS: POTASSIUM CHLORIDE ER 10 MEQ TAB.ER.PRT PO SCH (09:04)
[2016-10-04] MEDS: PROPAFENONE 150 MG TAB PO SCH (09:05)
[2016-10-04] MEDS ORDERED: PROPAFENONE 150 MG TAB PO SCH (10:31)
[2016-10-04 10:34] LABS: Manual Review Performed
[2016-10-04 10:35] LABS: Toxic Granulation Present
[2016-10-04] MEDS ORDERED: DILTIAZEM ORAL 30 MG TAB PO SCH (11:00)
[2016-10-04 12:07] LABS: Glucose,Whole Blood 102 mg/dL (75-99)
[2016-10-04 14:05] VITALS: TEMP 97.7
[2016-10-04] MEDS: KETOROLAC 30 MG/ML 1 ML VIAL IVP PRN (15:36)
[2016-10-04] MEDS ORDERED: POTASSIUM CHLORIDE ER 20 MEQ TAB.ER PO STA (17:00)
--- NOTE | 2016-10-04 17:10 | PN ---
Mrs. Warren remains in atrial fibrillation. She is actually going in and out of atrial fibrillation, but rate control is fair -- not totally optimal -- in the range of 90 to 100. She has no further nausea or vomiting. Abdominal pain has resolved. Blood pressure 130/70, pulse rate about 90, irregular. No JVD. S1, S2 heard normally. Short systolic murmur noted. Irregular rhythm noted. Lungs are clear. Abdomen is soft. The rest of the physical examination is unchanged. I am recommending that we increase the Rythmol, add Cardizem 30 mg b.i.d., increase activity. She can be discharged and see Dr. Newman in the office for possibility of electrical cardioversion as an outpatient. She is also going to [facility] to follow up for her abdominal pain following her cancer surgery. KRISTIAN
[2016-10-04 17:41] VITALS: BP 134/68; PULSE 95; RESP 17
--- NOTE | 2016-10-04 23:50 | P.DS ---
Providers Date of admission: 09/30/16 19:23 Attending physician: Barney Pacheco Consults: 09/30/16 21:18 Consult Physician Routine Consulting Provider: Ethan Hess Consult Reason/Comments: af Do you want consulting provider notified?: Yes 09/30/16 21:19 Consult Physician Routine Consulting Provider: Leena Springer Consult Reason/Comments: pelvic mass Do you want consulting provider notified?: Yes 09/30/16 21:24 Consult Physician Routine Consulting Provider: Bethanie Lewis Consult Reason/Comments: abdominal pain, nausea, vomiting Do you want consulting provider notified?: Yes Primary care physician: Perico Christopher [facility] Course: Mrs. Warren is a 71-year-old female with a past medical history of diabetes mellitus poorly controlled, hypertension, coronary artery disease admitted to the hospital with a chief complaint of left lower quadrant abdominal pain with nausea and vomiting. The patient has poorly controlled type 2 diabetes mellitus and had nausea and vomiting were thought to be secondary to gastroparesis. Patient also had A. fib with RVR for which she was started on a Cardizem drip. Patient has a recent hospital admission - she had a vaginal ultrasound and a computed tomography scan of the pelvis -that she found to have a pelvic mass. The patient was referred to [facility] and is in the process of being worked up for a ? malignancy. The patient's A. fib with RVR did convert to sinus rhythm but she went back in A. fib again. She has complains of generalized weakness and fatigue. Cardiology followwed the pt, her Lopressor dose has been increased and she was also started on Cardizem. Cardiology cleared the patient for discharge. She is being sent home in a stable condition with instructions to follow up with [facility] for her pelvic mass. DISCHARGE DIAGNOSES Intractable nausea and vomiting Left lower quadrant abdominal pain Atrial fibrillation with rapid ventricular rate Nonspecific pelvic mass in the left side Type 2 diabetes mellitus insulin-dependent Peripheral neuropathy Essential hypertension Irritable bowel syndrome Coronary artery disease status post stent Sick sinus syndrome status post pacemaker implant Left lower extremity edema - ultrasound earlier this week negative for DVT Protein calorie malnutrition mild Patient Condition at Discharge: Fair Plan - Discharge Summary New Discharge Prescriptions: New Diltiazem Oral [Cardizem*] 30 mg PO BID #60 tab Metoprolol Tartrate [Lopressor] 50 mg PO TID #90 tab Continue Nitroglycerin Sl Tabs [Nitrostat] 0.4 mg SL Q5M PRN PRN Reason: Chest Pain Clopidogrel [Plavix] 75 mg PO DAILY Propafenone [Rythmol] 150 mg PO TID Eluxadoline [Viberzi] 75 mg PO DAILY Omeprazole [PriLOSEC] 40 mg PO DAILY Cholecalciferol (Vitamin D3) [Vitamin D3] 2,000 unit PO DAILY Calcium Carbonate [Calcium] 600 mg PO DAILY Atorvastatin [Lipitor] 40 mg PO HS rOPINIRole HCL [Requip] 1 mg PO TID Edoxaban Tosylate [Savaysa] 60 mg PO DAILY Insulin Glargine [Lantus] 30 unit SQ HS #0 Furosemide [Lasix] 20 mg PO DAILY INSULIN LISPRO (humaLOG) [humaLOG (formulary)] See Protocol SQ ACHS Potassium Chloride [K-Tab ER] 10 meq PO DAILY Ondansetron Odt [Zofran ODT] 4 mg PO Q8HR PRN #20 PRN Reason: Nausea Discontinued Metoprolol Tartrate [Lopressor] 25 mg PO BID Discharge Medication List Clopidogrel [Plavix] 75 mg PO DAILY 10/01/13 [History] Nitroglycerin Sl Tabs [Nitrostat] 0.4 mg SL Q5M PRN 10/01/13 [History] Atorvastatin [Lipitor] 40 mg PO HS 09/01/16 [History] Calcium Carbonate [Calcium] 600 mg PO DAILY 09/01/16 [History] Cholecalciferol (Vitamin D3) [Vitamin D3] 2,000 unit PO DAILY 09/01/16 [History] Edoxaban Tosylate [Savaysa] 60 mg PO DAILY 09/01/16 [History] Eluxadoline [Viberzi] 75 mg PO DAILY 09/01/16 [History] Omeprazole [PriLOSEC] 40 mg PO DAILY 09/01/16 [History] Propafenone [Rythmol] 150 mg PO TID 09/01/16 [History] rOPINIRole HCL [Requip] 1 mg PO TID 09/01/16 [History] Insulin Glargine [Lantus] 30 unit SQ HS #0 09/06/16 [Rx] Furosemide [Lasix] 20 mg PO DAILY 09/30/16 [History] INSULIN LISPRO (humaLOG) [humaLOG (formulary)] See Protocol SQ ACHS 09/30/16 [ History] Potassium Chloride [K-Tab ER] 10 meq PO DAILY 09/30/16 [History] Diltiazem Oral [Cardizem*] 30 mg PO BID #60 tab 10/04/16 [Rx] Metoprolol Tartrate [Lopressor] 50 mg PO TID #90 tab 10/04/16 [Rx] Ondansetron Odt [Zofran ODT] 4 mg PO Q8HR PRN #20 10/04/16 [Rx] Follow up Appointment(s)/Referral(s): Perico White MD [Primary Care Provider] - 10/06/16 2:20 pm Shamika Newman MD [STAFF PHYSICIAN] - 10/07/16 2:15 pm Discharge Disposition: HOME SELF-CARE
== END 2016-10-04 17:56 | disposition home or self-care (01) | DRG 309 ==
LOC: EC 14:52 → 6SEL 19:23
PROVIDERS: ADMIT Hospitalist; ATTEND Hospitalist
DX: I48.0 Paroxysmal atrial fibrillation (principal); E44.1 Mild protein-calorie malnutrition; E11.42 Type 2 diabetes mellitus with diabetic polyneuropathy; I49.5 Sick sinus syndrome; E11.43 Type 2 diabetes mellitus with diabetic autonomic (poly)neuropathy; K31.84 Gastroparesis; I10 Essential (primary) hypertension; I25.10 Atherosclerotic heart disease of native coronary artery without angina pectoris; R19.04 Left lower quadrant abdominal swelling, mass and lump; I48.1 Persistent atrial fibrillation; I25.2 Old myocardial infarction; K58.0 Irritable bowel syndrome with diarrhea; D64.9 Anemia, unspecified; G25.81 Restless legs syndrome; T38.3X6A Underdosing of insulin and oral hypoglycemic [antidiabetic] drugs, initial encounter; T46.2X6A Underdosing of other antidysrhythmic drugs, initial encounter; T42.8X6A Underdosing of antiparkinsonism drugs and other central muscle-tone depressants, initial encounter; T50.3X6A Underdosing of electrolytic, caloric and water-balance agents, initial encounter; T50.1X6A Underdosing of loop [high-ceiling] diuretics, initial encounter; T47.1X6A Underdosing of other antacids and anti-gastric-secretion drugs, initial encounter; T44.7X6A Underdosing of beta-adrenoreceptor antagonists, initial encounter; T46.6X6A Underdosing of antihyperlipidemic and antiarteriosclerotic drugs, initial encounter; T45.526A Underdosing of antithrombotic drugs, initial encounter; E66.9 Obesity, unspecified; F41.9 Anxiety disorder, unspecified; R68.83 Chills (without fever); R60.0 Localized edema; R53.1 Weakness; L40.9 Psoriasis, unspecified; R01.1 Cardiac murmur, unspecified; Z79.899 Other long term (current) drug therapy; Z79.4 Long term (current) use of insulin; Z95.5 Presence of coronary angioplasty implant and graft; Z79.02 Long term (current) use of antithrombotics/antiplatelets; Z95.0 Presence of cardiac pacemaker; Z80.3 Family history of malignant neoplasm of breast; Z80.1 Family history of malignant neoplasm of trachea, bronchus and lung; Z87.891 Personal history of nicotine dependence; Z85.3 Personal history of malignant neoplasm of breast; Z88.1 Allergy status to other antibiotic agents; Z85.41 Personal history of malignant neoplasm of cervix uteri; Z86.19 Personal history of other infectious and parasitic diseases; Z87.440 Personal history of urinary (tract) infections; Z90.49 Acquired absence of other specified parts of digestive tract; Z90.710 Acquired absence of both cervix and uterus; Z90.12 Acquired absence of left breast and nipple; Z98.42 Cataract extraction status, left eye; Z98.41 Cataract extraction status, right eye; Z71.3 Dietary counseling and surveillance; Z68.33 Body mass index [BMI] 33.0-33.9, adult; Z86.010 Personal history of colon polyps; Z78.0 Asymptomatic menopausal state; Z80.8 Family history of malignant neoplasm of other organs or systems
CPT/HCPCS: 36415; 71020; 74020; 80048; 80053; 81001; 83036; 83605; 83690; 83735; 84132; 84484; 85025; 93005; 96361; 96365; 96366; 96372; 96376; 99285

== ENCOUNTER → 2016-10-06 | Outpatient (CLI) | payer MEDICARE ==
--- NOTE | 2016-10-07 08:58 | MM ---
Reason for exam: screening (asymptomatic). Last mammogram was performed 1 year and 1 month ago. History: Patient is postmenopausal, has history of ovarian cancer at age 29, and has history of breast cancer at age 27. Family history of breast cancer in sister at age 56 and breast cancer in grandmother at age 60. Benign lumpectomy of the left breast, July 2008. Benign US left CoreBiopsy of both breasts, November 17, 2006. Excisional biopsy of the left breast, January 2005. Excisional biopsy of the right breast, 1974. Malignant lumpectomy. Physical Findings: A clinical breast exam by your physician is recommended on an annual basis and results should be correlated with mammographic findings. MG 3D Screening Mammo W/Cad Bilateral CC and MLO view(s) were taken. XCCL view(s) were taken of the left breast. Prior study comparison: September 10, 2015, bilateral MG 3d diag mammo w/cad [facility]. August 01, 2014, bilateral MG diagnostic mammo w CAD [facility]. The breast tissue is heterogeneously dense. This may lower the sensitivity of mammography. Finding: There are typically benign round calcifications. There is no discrete abnormality. No significant changes in finding since September 10, 2015 and August 01, 2014. ASSESSMENT: Benign, BI-RAD 2 RECOMMENDATION: Routine screening mammogram of both breasts.
== END | disposition home or self-care (01) ==
LOC: RADMAMWWP 10:57
PROVIDERS: ATTEND Obstetrics & Gynecology
DX: Z12.31 Encounter for screening mammogram for malignant neoplasm of breast (principal)
CPT/HCPCS: 77063; G0202

== ENCOUNTER 2016-10-25 13:32 | Emergency (ER) | payer MEDICARE ==
[2016-10-25] MEDS ORDERED: SODIUM CHLORIDE 0.9% 500 ML IV STA (14:30)
[2016-10-25] MEDS ORDERED: RX INFO: IV CONTRAST WAS GIVEN 1 EACH MISC MISCELLANE PRN (14:30)
[2016-10-25] MEDS: ONDANSETRON 4 MG/2 ML VIAL IVP STA ×2 (15:11→22:52)
[2016-10-25] MEDS: MORPHINE SULFATE 4 MG/ML SYRINGE IV STA ×2 (15:15→18:43)
[2016-10-25 16:01] LABS: Amylase <30 U/L (30-110)
[2016-10-25 16:04] LABS: INR 1.6 (<1.2); Partial Thromboplastin Time 27.9 sec (22.0-30.0); Prothrombin Time 15.5 sec (9.0-12.0)
--- NOTE | 2016-10-25 16:43 | ED ---
General Adult HPI - General Source: patient, family, RN notes reviewed Mode of arrival: wheelchair Limitations: no limitations <Bijan Abbasi - Last Filed: 10/25/16 16:40> <Elise Khanna - Last Filed: 10/25/16 21:26> - General Chief complaint: Weakness Stated complaint: Vomiting Time Seen by Provider: 10/25/16 14:08 - History of Present Illness Initial comments: 71-year-old female history of A. fib, diabetes, and pacemaker presenting with generalized weakness, nausea vomiting and abdominal pain. She is chief complains primarily abdominal pain. She has a mass that was identified on previous CT, this mass was evaluated at, cancer [place]. The patient states that over the past several days this mass has expanded. She does have surgery scheduled for November 24 for exploration. Patient reports 5 episodes of nausea and vomiting. No diarrhea or constipation. No fever or chills. ( Bijan Abbasi) - Related Data Home Medications Medication Instructions Recorded Confirmed Clopidogrel [Plavix] 75 mg PO DAILY 10/01/13 10/25/16 Nitroglycerin Sl Tabs [Nitrostat] 0.4 mg SL Q5M PRN 10/01/13 10/25/16 Atorvastatin [Lipitor] 40 mg PO HS 09/01/16 10/25/16 Calcium Carbonate [Calcium] 600 mg PO DAILY 09/01/16 10/25/16 Cholecalciferol (Vitamin D3) 2,000 unit PO DAILY 09/01/16 10/25/16 [Vitamin D3] Edoxaban Tosylate [Savaysa] 60 mg PO DAILY 09/01/16 10/25/16 Eluxadoline [Viberzi] 75 mg PO DAILY 09/01/16 10/25/16 Omeprazole [PriLOSEC] 40 mg PO DAILY 09/01/16 10/25/16 Propafenone [Rythmol] 150 mg PO TID 09/01/16 10/25/16 rOPINIRole HCL [Requip] 1 mg PO TID 09/01/16 10/25/16 Furosemide [Lasix] 20 mg PO DAILY 09/30/16 10/25/16 INSULIN LISPRO (humaLOG) [humaLOG See Protocol SQ ACHS 09/30/16 10/25/16 (formulary)] Potassium Chloride [K-Tab ER] 10 meq PO DAILY 09/30/16 10/25/16 traMADol HCL [Ultram] 50 mg PO TID PRN 10/25/16 10/25/16 Previous Rx's Medication Instructions Recorded Insulin Glargine [Lantus] 30 unit SQ HS #0 09/06/16 Diltiazem Oral [Cardizem*] 30 mg PO BID #60 tab 10/04/16 Metoprolol Tartrate [Lopressor] 50 mg PO TID #90 tab 10/04/16 Ondansetron Odt [Zofran ODT] 4 mg PO Q8HR PRN #20 10/04/16 Allergies Allergy/AdvReac Type Severity Reaction Status Date / Time ceftriaxone sodium Allergy HIVES Verified 10/25/16 14:15 [From Rocephin] Review of Systems ROS Other: All systems not noted in ROS Statement are negative. <Bijan Abbasi - Last Filed: 10/25/16 16:40> ROS Other: All systems not noted in ROS Statement are negative. <Elise Khanna - Last Filed: 10/25/16 21:26> ROS Statement: Those systems with pertinent positive or pertinent negative responses have been documented in the HPI. Past Medical History Past Medical History: Cancer, Diabetes Mellitus, Hypertension, Myocardial Infarction (HI), Skin Disorder Additional Past Medical History / Comment(s): HEART MURMUR, IBS, RECENT UTI, PSORIASIS, HX SHINGLES, NEUROPATHY, CERVICAL AND BREAST CANCER-NO CHEMO OR RAD., Last Myocardial Infarction Date:: 2016 History of Any Multi-Drug Resistant Organisms: None Reported Past Surgical History: Breast Surgery, Cholecystectomy, Heart Catheterization With Stent, Hysterectomy, Orthopedic Surgery, Pacemaker, Tonsillectomy Additional Past Surgical History / Comment(s): BILAT BREAST BIOPSY, LT PARTIAL MASTECTOMY-1976, LT KNEE SCOPE, REPAIR LT ROTATOR CUFF, LT CTR, BILAT CATARACT REMOVAL, COLONOSCOPY, EGD Past Anesthesia/Blood Transfusion Reactions: Previous Problems w/ Anesthesia, Motion Sickness, Postoperative Nausea & Vomiting (PONV) Date of Last Stent Placement:: 2016 Type of Cardiac Device: Permanent Pacemaker Device Placement Date:: 05/19/16 Past Psychological History: Anxiety Smoking Status: Former smoker Past Alcohol Use History: None Reported Past Drug Use History: None Reported - Past Family History Father Family Medical History: Cancer Mother Family Medical History: Cancer Brother(s) Family Medical History: Cancer Sister(s) Family Medical History: Cancer <CalderonlandonBijan Carvalho - Last Filed: 10/25/16 16:40> General Exam Limitations: no limitations General appearance: alert, in distress Head exam: Present: atraumatic, normocephalic Eye exam: Present: normal appearance, PERRL, EOMI ENT exam: Present: normal exam, normal oropharynx Neck exam: Present: normal inspection. Absent: meningismus Respiratory exam: Present: normal lung sounds bilaterally. Absent: respiratory distress Cardiovascular Exam: Present: regular rate, normal rhythm GI/Abdominal exam: Present: distended, tenderness (Significant tenderness over anterior abdominal mass in the lower abdomen, there is some mild erythema.), mass, other Back exam: Present: normal inspection Neurological exam: Present: alert, oriented X3, CN II-XII intact. Absent: motor sensory deficit Psychiatric exam: Present: normal affect, normal mood Skin exam: Present: warm, dry. Absent: cyanosis, diaphoretic <Bijan Abbasi - Last Filed: 10/25/16 16:40> Course <Bijan Abbasi - Last Filed: 10/25/16 16:40> <Elsie Khanna - Last Filed: 10/25/16 21:26> Vital Signs 10/25/16 10/25/16 10/25/16 13:59 15:18 19:00 Temperature 98.4 F Pulse Rate 70 67 70 Respiratory 19 20 16 Rate Blood Pressure 98/52 143/67 135/60 O2 Sat by Pulse 100 97 97 Oximetry - Reevaluation(s) Reevaluation #1: 10/25/16 16:42 Initial vital signs do reveal pressure 90 systolic. This improves with IV hydration. Stable pressure (Bijan Abbasi) 10/25/16 21:14 The patient was reassessed at 2100, white count is 15.1 hemoglobin is 8.9 INR is 1.6 On 12 BUN is [address] abdomen was reviewed and discussed with the patient 10/25/16 21:24 I did turn call and speak with Dr. Pugh from [facility] in [place] and now been her accepting call center representative Char called me and they have accepted her in transfer, discussed that with the family and the patient and they're agreeable as well (Elise Khanna) Medical Decision Making <Bijan Abbasi - Last Filed: 10/25/16 16:40> - Lab Data Result diagrams: 10/25/16 15:36 10/25/16 15:36 <Elise Khanna - Last Filed: 10/25/16 21:26> - Medical Decision Making 71-year-old female presenting with abdominal pain and expanding abdominal mass. Patient also reports nausea and vomiting. Laboratory studies are pending as well as CT of the abdomen and pelvis. Patient 's care will be signed out to the oncoming physician. (Bijan Abbasi) - Lab Data Lab Results 10/25/16 10/25/16 10/25/16 Range/Units 15:36 15:36 15:36 WBC (3.8-10.6) k/uL RBC (3.80-5.40) m/uL Hgb (11.4-16.0) gm/dL Hct (34.0-46.0) % MCV (80.0-100.0) fL MCH (25.0-35.0) pg MCHC (31.0-37.0) g/dL RDW (11.5-15.5) % Plt Count (150-450) k/uL Neutrophils % (Manual) % Band Neutrophils % % Lymphocytes % (Manual) % Monocytes % (Manual) % Eosinophils % (Manual) % Neutrophils # (Manual) (1.3-7.7) k/uL Lymphocytes # (Manual) (1.0-4.8) k/uL Monocytes # (Manual) (0-1.0) k/uL Eosinophils # (Manual) (0-0.7) k/uL Nucleated RBCs (0-0) /100 WBC Manual Slide Review Hypochromasia PT 15.5 H (9.0-12.0) sec INR 1.6 H (<1.2) APTT 27.9 (22.0-30.0) sec Sodium (137-145) mmol/L Potassium (3.5-5.1) mmol/L Chloride (98-107) mmol/L Carbon Dioxide (22-30) mmol/L Anion Gap mmol/L BUN (7-17) mg/dL Creatinine (0.52-1.04) mg/dL Est GFR (MDRD) Af Amer (>60 ml/min/1.73 sqM) Est GFR (MDRD) Non-Af (>60 ml/min/1.73 sqM) Glucose (74-99) mg/dL Plasma Lactic Acid Mitch (0.7-2.0) mmol/L Calcium (8.4-10.2) mg/dL Total Bilirubin (0.2-1.3) mg/dL AST (14-36) U/L ALT (9-52) U/L Alkaline Phosphatase (38-126) U/L Troponin I <0.012 (0.000-0.034) ng/mL Total Protein (6.3-8.2) g/dL Albumin (3.5-5.0) g/dL Amylase <30 L (30-110) U/L Lipase 60 (23-300) U/L Blood Type Blood Type Confirm Blood Type Recheck Antibody Screen Spec Expiration Date 10/25/16 10/25/16 10/25/16 Range/Units 15:36 15:36 15:36 WBC 15.1 H (3.8-10.6) k/uL RBC 3.28 L (3.80-5.40) m/uL Hgb 8.9 L (11.4-16.0) gm/dL Hct 29.4 L (34.0-46.0) % MCV 89.6 (80.0-100.0) fL MCH 27.2 (25.0-35.0) pg MCHC 30.4 L (31.0-37.0) g/dL RDW 14.6 (11.5-15.5) % Plt Count 383 (150-450) k/uL Neutrophils % (Manual) 81 % Band Neutrophils % 10.0 % Lymphocytes % (Manual) 4 % Monocytes % (Manual) 4 % Eosinophils % (Manual) 1 % Neutrophils # (Manual) 13.74 H (1.3-7.7) k/uL Lymphocytes # (Manual) 0.60 L (1.0-4.8) k/uL Monocytes # (Manual) 0.60 (0-1.0) k/uL Eosinophils # (Manual) 0.15 (0-0.7) k/uL Nucleated RBCs 0 (0-0) /100 WBC Manual Slide Review Performed Hypochromasia Moderate PT (9.0-12.0) sec INR (<1.2) APTT (22.0-30.0) sec Sodium 131 L (137-145) mmol/L Potassium 3.6 (3.5-5.1) mmol/L Chloride 97 L (98-107) mmol/L Carbon Dioxide 24 (22-30) mmol/L Anion Gap 10 mmol/L BUN 28 H (7-17) mg/dL Creatinine 1.12 H (0.52-1.04) mg/dL Est GFR (MDRD) Af Amer 58 (>60 ml/min/1.73 sqM) Est GFR (MDRD) Non-Af 48 (>60 ml/min/1.73 sqM) Glucose 151 H (74-99) mg/dL Plasma Lactic Acid Mitch 1.5 (0.7-2.0) mmol/L Calcium 7.5 L (8.4-10.2) mg/dL Total Bilirubin 0.6 (0.2-1.3) mg/dL AST 16 (14-36) U/L ALT 24 (9-52) U/L Alkaline Phosphatase 63 (38-126) U/L Troponin I (0.000-0.034) ng/mL Total Protein 5.1 L (6.3-8.2) g/dL Albumin 2.0 L (3.5-5.0) g/dL Amylase (30-110) U/L Lipase (23-300) U/L Blood Type Blood Type Confirm Blood Type Recheck Antibody Screen Spec Expiration Date 10/25/16 10/25/16 Range/Units 15:36 16:45 WBC (3.8-10.6) k/uL RBC (3.80-5.40) m/uL Hgb (11.4-16.0) gm/dL Hct (34.0-46.0) % MCV (80.0-100.0) fL MCH (25.0-35.0) pg MCHC (31.0-37.0) g/dL RDW (11.5-15.5) % Plt Count (150-450) k/uL Neutrophils % (Manual) % Band Neutrophils % % Lymphocytes % (Manual) % Monocytes % (Manual) % Eosinophils % (Manual) % Neutrophils # (Manual) (1.3-7.7) k/uL Lymphocytes # (Manual) (1.0-4.8) k/uL Monocytes # (Manual) (0-1.0) k/uL Eosinophils # (Manual) (0-0.7) k/uL Nucleated RBCs (0-0) /100 WBC Manual Slide Review Hypochromasia PT (9.0-12.0) sec INR (<1.2) APTT (22.0-30.0) sec Sodium (137-145) mmol/L Potassium (3.5-5.1) mmol/L Chloride (98-107) mmol/L Carbon Dioxide (22-30) mmol/L Anion Gap mmol/L BUN (7-17) mg/dL Creatinine (0.52-1.04) mg/dL Est GFR (MDRD) Af Amer (>60 ml/min/1.73 sqM) Est GFR (MDRD) Non-Af (>60 ml/min/1.73 sqM) Glucose (74-99) mg/dL Plasma Lactic Acid Mitch (0.7-2.0) mmol/L Calcium (8.4-10.2) mg/dL Total Bilirubin (0.2-1.3) mg/dL AST (14-36) U/L ALT (9-52) U/L Alkaline Phosphatase (38-126) U/L Troponin I (0.000-0.034) ng/mL Total Protein (6.3-8.2) g/dL Albumin (3.5-5.0) g/dL Amylase (30-110) U/L Lipase (23-300) U/L Blood Type A Positive Blood Type Confirm A Positive Blood Type Recheck CABO Indicated Antibody Screen NEGATIVE Spec Expiration Date 10/28/2016 - 2336 Disposition <Bijan Abbasi - Last Filed: 10/25/16 16:40> - Out of Hospital Transfer - Req. Specs Out of Hospital Transfer - Requested Specifics: Other Emergency Center (Dr. Pugh accepted her in transfer she be going to [facility]) <Elise Khanna - Last Filed: 10/25/16 21:26> Clinical Impression: Abdominal mass Disposition: OTHER INSTITUTION NOT DEFINED Referrals: Perico White MD [Primary Care Provider] - 1-2 days
[2016-10-25 17:06] LABS: CH 26.8; HCT 29.4 % (34.0-46.0); HDW 2.35; HGB 8.9 gm/dL (11.4-16.0); Hypochromasia Moderate; Immature Gran Flag Slight; MCH 27.2 pg (25.0-35.0); MCHC 30.4 g/dL (31.0-37.0); MCV 89.6 fL (80.0-100.0); RBC 3.28 m/uL (3.80-5.40); RDW 14.6 % (11.5-15.5); WBC 15.1 k/uL (3.8-10.6); WBC (Perox) 15.64
[2016-10-25 17:08] LABS: Potassium 3.6 mmol/L (3.5-5.1); Total Bilirubin 0.6 mg/dL (0.2-1.3); Total Protein 5.1 g/dL (6.3-8.2)
[2016-10-25 17:15] LABS: Calcium 7.5 mg/dL (8.4-10.2)
[2016-10-25 17:45] LABS: Add Differential Manual Differential
[2016-10-25 17:47] LABS: Manual Review Performed; Nucleated Red Blood Cells 0 /100 WBC (0-0); Total Cells Counted 100
--- NOTE | 2016-10-25 18:45 | CT ---
EXAMINATION TYPE: CT abdomen pelvis w con DATE OF EXAM: 10/25/2016 HISTORY: Patient complains of continued LLQ pain and swelling since prior scan. History of breast and cervical cancer with prior left lower quadrant mass CT DLP: 1325.1mGycm Automated Exposure Control for Dose Reduction was Utilized. CONTRAST: CT scan of the abdomen and pelvis is performed with IV Contrast, patient injected with 100 mL of Visi paque 320. COMPARISON: 09/01/2016 FINDINGS: LUNG BASES: No significant abnormality is appreciated. LIVER/GB: No significant abnormality is appreciated. Gallbladder is surgically absent with extensive extrahepatic and moderate intrahepatic biliary ductal dilatation. This is unchanged from the prior ex am. PANCREAS: No significant abnormality is seen. No pancreatic ductal dilatation. SPLEEN: No significant abnormality is seen. ADRENALS: No significant abnormality is seen on the right. Low-density left adrenal gland nodule eduardo ures approximately 1.5 cm, stable from the prior. KIDNEYS: No significant abnormality is seen. BOWEL: No significant abnormality is seen. PERITONEUM: At the previously described site of low-density pelvic mass along the pelvic sidewall and extending into the left paracolic gutter and posterior to the left external oblique musculature with in the abdomen there is a multiloculated peripherally enhancing fluid collection containing numerous foci of air. This extends from the space of Retzius extra peritoneally through the anterior abdominal wall into the subcutaneous tunnel soft tissues. This also extends up the lateral conal fascia into t he peritoneal cavity superiorly. The largest subcutaneous component measures 9.8 x 4.3 cm. A multiloc ulated collection along the pelvic sidewall spans a distance of 8.7 cm in anterior posterior directio n and 7.5 cm in transverse dimension. There appears to be communication between the fluid collections . Extensive associated soft tissue stranding and phlegmonous changes are seen. Extensive subcutaneous emphysema is seen of the ventral abdominal and pelvic subcutaneous soft tissues along with skin thic kening. Local adenopathy is seen in the common and internal iliac chain measuring up to 7 mm. No air is seen within the adjacent urinary bladder to suggest fistula. LYMPH NODES: No greater than 1cm abdominal or pelvic lymph nodes are appreciated. OSSEOUS STRUCTURES: No significant abnormality is seen. No suspicious osseous lesion. No cortical ero lelo. Extensive degenerative changes at L2-L3. OTHER: Atherosclerosis is seen of the abdominal aorta and its branches. IMPRESSION: 1. Complex multiloculated fluid collection with radiographic features of abscess formation in the int raperitoneal and extraperitoneal spaces as well as the subcutaneous soft tissues. This is adjacent to surgical eun with associated local adenopathy and no evidence of current vesicular fistula altho ugh phlegmonous changes about the urinary bladder..
[2016-10-25] MEDS ORDERED: PIPERACILLIN-TAZOBACTAM 3.375 GM in DEXTROSE/WATER 1 50ML.BAG IVPB STA ×2 (19:25→21:27)
[2016-10-25] MEDS ORDERED: SODIUM CHLORIDE 0.9% 500 ML IV ONE (19:55)
[2016-10-25] MEDS ORDERED: SODIUM CHLORIDE 0.9% 1,000 ML IV SCH (20:00)
[2016-10-25 20:03] VITALS: RESP 16
[2016-10-25 22:54] LABS: Glucose,Whole Blood 115 mg/dL (75-99)
[2016-10-25 22:59] VITALS: BP 117/56; PULSE 72; TEMP 98.6
== END 2016-10-25 23:32 | disposition short-term general hospital (02) ==
LOC: EC 13:32
DX: R19.00 Intra-abdominal and pelvic swelling, mass and lump, unspecified site (principal); E11.9 Type 2 diabetes mellitus without complications; I10 Essential (primary) hypertension; I25.2 Old myocardial infarction; Z90.49 Acquired absence of other specified parts of digestive tract; Z85.3 Personal history of malignant neoplasm of breast; Z85.41 Personal history of malignant neoplasm of cervix uteri; Z87.891 Personal history of nicotine dependence; Z98.890 Other specified postprocedural states; Z88.1 Allergy status to other antibiotic agents; Z79.02 Long term (current) use of antithrombotics/antiplatelets; Z79.4 Long term (current) use of insulin; Z79.899 Other long term (current) drug therapy
CPT/HCPCS: 99285; 96365; 96366 ×2; 96375 ×2; 96376 ×2; 96361; 36415; 86900; 86901; 80053; 82150; 83605; 83690; 84484; 85025; 85610; 85730; 86850; 87040; 74177; J2270; Q9967; J2405; J2543